=== PATIENT | female | born 1965 | race Caucasian/White ===

== ENCOUNTER 2019-09-10 11:16 | Emergency (ER) | payer OTHER ==
[2019-09-10] MEDS ORDERED: METHYLPREDNISOLONE INJ 125 MG/2 ML SDV IV ONE (11:40)
[2019-09-10] MEDS ORDERED: IPRATROPIUM/ALBUTEROL 0.5-2.5 MG/3 ML AMPUL NEB ONE (11:40)
--- NOTE | 2019-09-10 11:41 | ER Document Report ---
ED Medical Screen (RME) - General Chief Complaint: Breathing Difficulty Stated Complaint: DIFFICULTY BREATHING Time Seen by Provider: 09/10/19 11:39 Primary Care Provider: COREY KILPATRICK MD [Primary Care Provider] - Follow up as needed Notes: HPI: 54-year-old female who smokes presenting to the emergency department complaining of significant shortness of breath that began last night. Patient believes that she has had episodes possibly allergy issues with a mattress she purchased in June she feels short of breath every night. Has never gone to a PCP for evaluation of these issues. Denies swelling of the legs. Denies chest pain but states that it hurts and is difficult to feel like she is able to take a deep breath in. States possible asthma issue when she was a child. Patient does have longstanding smoking history I have greeted and performed a rapid initial assessment of this patient. A comprehensive ED assessment and evaluation of the patient, analysis of test results and completion of the medical decision making process will be conducted by additional ED providers PHYSICAL EXAMINATION: GENERAL: Well-appearing, well-nourished and in mild acute distress. HEAD: Atraumatic, normocephalic. EYES: sclera anicteric, conjunctiva are normal. ENT: Moist mucous membranes. NECK: Normal range of motion LUNGS: Slightly increased work of breathing, lung sounds appear clear to auscultation but slightly decreased in the bases HEART: 2+ radial pulses bilaterally, mildly tachycardic ABD: limited by positioning for exam in triage. EXTREMITIES: no pitting or edema. No cyanosis. NEUROLOGICAL: No focal neurological deficits. Moves all extremities spontaneously and on command. PSYCH: Normal mood, normal affect. SKIN: Warm, Dry, normal turgor, no rashes or lesions noted. TRAVEL OUTSIDE OF THE [place] IN LAST 30 DAYS: No - Related Data Allergies/Adverse Reactions: No Known Allergies Allergy (Unverified 09/10/19 11:39) Home Medications: no home medications Past Medical History - Social History Chew tobacco use (# tins/day): No Frequency of alcohol use: None Drug Abuse: None Physical Exam - Vital signs Vitals: Temp Pulse Resp BP Pulse Ox 97.5 F 131 H 32 H 144/83 H 94 09/10/19 11:22 09/10/19 11:22 09/10/19 11:22 09/10/19 11:22 09/10/19 11:22 Course - Vital Signs Vital signs: Temp Pulse Resp BP Pulse Ox 97.5 F 131 H 32 H 144/83 H 94 09/10/19 11:22 09/10/19 11:22 09/10/19 11:22 09/10/19 11:22 09/10/19 11:22 Doctor's Discharge - Discharge Referrals: COREY KILPATRICK MD [Primary Care Provider] - Follow up as needed
--- NOTE | 2019-09-10 12:46 | RADIOLOGY REPORT (SQ) ---
EXAM DESCRIPTION: CHEST SINGLE VIEW COMPLETED DATE/TIME: 09/10/2019 12:31 pm REASON FOR STUDY: shortness of breath COMPARISON: None. EXAM PARAMETERS: NUMBER OF VIEWS: One view. TECHNIQUE: An AP view of the chest was obtained. RADIATION DOSE: NA LIMITATIONS: None. FINDINGS: LUNGS AND PLEURA: COPD without a superimposed consolidation, sizeable pleural effusion or pneumothorax. MEDIASTINUM AND HILAR STRUCTURES: No mediastinal or hilar contour abnormality. HEART AND VASCULAR STRUCTURES: The cardiac silhouette and pulmonary vasculature are within normal meneses its. BONES: No acute findings. HARDWARE: None in the chest. OTHER: No other finding. IMPRESSION: COPD without a superimposed acute cardiopulmonary process. TECHNICAL DOCUMENTATION: JOB ID: [id number] 2010 [employer]- All Rights Reserved Reading location - IP/workstation name: [email or web address]
[2019-09-10 13:11] LABS: ABSOLUTE BASOPHILS # (AUTO) 0.1 10^3/uL (0.0-0.2); ABSOLUTE EOSINOPHILS # (AUTO) 0.2 10^3/uL (0.0-0.6); ABSOLUTE LYMPHOCYTES (AUTO) 4.3 10^3/uL (0.5-4.7); ABSOLUTE MONOCYTES (AUTO) 1.3 10^3/uL (0.1-1.4); ABSOLUTE NEUT (AUTO) 10.8 10^3/uL (1.7-8.2); BASOPHILS % (AUTO) 0.8 % (0-2); EOSINOPHILS % (AUTO) 1.4 % (0-6); HEMATOCRIT 45.8 % (36.0-47.0); HEMOGLOBIN 15.7 g/dL (12.0-15.5); LYMPHOCYTES % (AUTO) 25.7 % (13-45); MEAN CORPUSCULAR HEMOGLOBIN 32.2 pg (27.0-33.4); MEAN CORPUSCULAR HGB CONC 34.3 g/dL (32.0-36.0); MEAN CORPUSCULAR VOLUME 94 fl (80-97); MONOCYTES % (AUTO) 7.7 % (3-13); PLATELET COUNT 307 10^3/uL (150-450); RED BLOOD COUNT 4.86 10^6/uL (3.72-5.28); RED CELL DISTRIBUTION WIDTH 12.9 % (11.5-14.0); SEGMENTED NEUTROPHILS % (AUTO) 64.4 % (42-78); TOTAL CELLS COUNTED % (AUTO) 100 %; WHITE BLOOD COUNT 16.8 10^3/uL (4.0-10.5)
--- NOTE | 2019-09-10 13:31 | EKG REPORT ---
SEVERITY:- ABNORMAL ECG - SINUS TACHYCARDIA ATRIAL PREMATURE COMPLEX BIATRIAL ABNORMALITIES BORDERLINE T ABNORMALITIES, ANT-LAT LEADS : Confirmed by: Doc Mcgowan MD 10-Sep-2019 13:30:55
[2019-09-10 13:37] LABS: ALBUMIN 5.1 g/dL (3.5-5.0); ALKALINE PHOSPHATASE 49 U/L (38-126); ANION GAP 10 (5-19); ASPARTATE AMINO TRANSFERASE 35 U/L (14-36); BILIRUBIN,DIRECT 0.1 mg/dL (0.0-0.4); BILIRUBIN,TOTAL 0.5 mg/dL (0.2-1.3); BLOOD UREA NITROGEN 9 mg/dL (7-20); CALCIUM 10.2 mg/dL (8.4-10.2); CARBON DIOXIDE 22 mmol/L (22-30); CHLORIDE 109 mmol/L (98-107); GLUCOSE 111 mg/dL (75-110); POTASSIUM 4.6 mmol/L (3.6-5.0)
[2019-09-10] MEDS ORDERED: ASPIRIN 81 MG TABLET, CHEWABLE PO ONE (13:59)
[2019-09-10 14:00] LABS: TROPONIN I 0.047 ng/mL
[2019-09-10 14:37] LABS: APPEARANCE,URINE CLEAR; BILIRUBIN,URINE SMALL (NEGATIVE); COLOR,URINE YELLOW; GLUCOSE, URINE NEGATIVE (NEGATIVE); KETONES,URINE TRACE mg/dL (NEGATIVE); LEUKOCYTE ESTERASE,URINE NEGATIVE (NEGATIVE); NITRITE,URINE NEGATIVE (NEGATIVE); PROTEIN,URINE 100 mg/dL (NEGATIVE); URINE SPECIFIC GRAVITY 1.032; UROBILINOGEN,URINE NEGATIVE mg/dL (<2.0)
[2019-09-10] MEDS ORDERED: ALBUTEROL SULFATE 0.083% NEB 2.5 MG/3 ML AMPUL NEB ONE ×2 (14:42)
[2019-09-10] MEDS ORDERED: NORMAL SALINE 1000 ML 1,000 ML IV ONE (14:43)
[2019-09-10] MEDS: MAGNESIUM SULFATE/D5W 1 GM/100 ML RTUPB IV SCH ×2 (15:04→16:37)
--- NOTE | 2019-09-10 15:07 | ER Document Report ---
Entered by RADHA MORTON SCRIBE 09/10/19 1440 Acting as scribe for:PREETHI OLEA MD ED General - General Chief Complaint: Breathing Difficulty Stated Complaint: DIFFICULTY BREATHING Time Seen by Provider: 09/10/19 11:39 Primary Care Provider: COREY KILPATRICK MD [Primary Care Provider] - Follow up as needed Information source: Patient Notes: 54-year-old female presents to the emergency department complaining of shortness of breath that she has noticed is worse at night for a couple of months. Patient started smoking when she was 10 years old and was smoking about a pack a day until she was 31 years old. Patient stated that at 31 years old, she was smoking 3 packs per day until she started tapering when she was 39 years old. Patient has tapered to below a pack per day since she was 44 years old. Patient now reports smoking about a half a pack per day. Patient states that drinking coffee would help her shortness of breath but did not provide relief today. Patient denies sputum. TRAVEL OUTSIDE OF THE [place] IN LAST 30 DAYS: No - Related Data Allergies/Adverse Reactions: No Known Allergies Allergy (Unverified 09/10/19 11:39) Home Medications: no home medications Past Medical History - General Information source: Patient - Social History Smoking Status: Current Every Day Smoker Cigarette use (# per day): Yes - Half a pack per day Chew tobacco use (# tins/day): No Frequency of alcohol use: None Drug Abuse: None Lives with: Spouse/Significant other Family History: Other - Emphysema Patient has suicidal ideation: No Patient has homicidal ideation: No Pulmonary Medical History: Reports: Hx Asthma, Hx COPD Past Surgical History: Reports: Hx Section, Hx Oral Surgery - X3, Hx Tubal Ligation Review of Systems - Review of Systems Constitutional: No symptoms reported EENT: No symptoms reported Cardiovascular: denies: Chest pain Respiratory: See HPI, Short of breath. denies: Sputum Gastrointestinal: No symptoms reported Genitourinary: No symptoms reported Female Genitourinary: No symptoms reported Musculoskeletal: No symptoms reported Skin: No symptoms reported Hematologic/Lymphatic: No symptoms reported Neurological/Psychological: No symptoms reported -: Yes All other systems reviewed and negative Physical Exam - Vital signs Vitals: Temp Pulse Resp BP Pulse Ox 97.5 F 131 H 32 H 144/83 H 94 09/10/19 11:22 09/10/19 11:22 09/10/19 11:22 09/10/19 11:22 09/10/19 11:22 - Notes Notes: Physical Exam: General: Alert. Thin appearing. HEENT: Normocephalic. Atraumatic. PERRL. Extraocular movements intact. Oropharynx clear. Neck: Supple. Non-tender. Respiratory: No respiratory distress. Wheezing and Rhonchi bilaterally. When asked to cough, patient has a prolonged expository wheeze. Cardiovascular: Regular rate and rhythm. Abdominal: Normal Inspection. Non-tender. No distension. Normal Bowel Sounds. Back: No gross abnormalities. Extremities: Moves all four extremities. Upper extremities: Normal inspection. Normal ROM. Lower extremities: Normal inspection. No edema. Normal ROM. Neurological: Normal cognition. AAOx4. Normal speech. Psychological: Normal affect. Normal Mood. Skin: Warm. Dry. Normal color. Course - Vital Signs Vital signs: Temp Pulse Resp BP Pulse Ox 97.5 F 131 H 16 125/80 96 09/10/19 11:22 09/10/19 11:22 09/10/19 14:01 09/10/19 14:01 09/10/19 14:01 - Laboratory Result Diagrams: 09/10/19 13:00 09/10/19 13:00 Laboratory results interpreted by me: 09/10/19 09/10/19 09/10/19 12:15 13:00 13:00 WBC 16.8 H Hgb 15.7 H Absolute Neuts (auto) 10.8 H Chloride 109 H Glucose 111 H NT-Pro-B Natriuret Pep Albumin 5.1 H Urine Protein 100 H Urine Ketones TRACE H Urine Blood SMALL H Urine Bilirubin SMALL H 09/10/19 13:00 WBC Hgb Absolute Neuts (auto) Chloride Glucose NT-Pro-B Natriuret Pep 165 H Albumin Urine Protein Urine Ketones Urine Blood Urine Bilirubin - Diagnostic Test Radiology reviewed: Image reviewed, Reports reviewed - Chest x-ray shows COPD without acute findings. - EKG Interpretation by Me EKG shows normal: Sinus rhythm, [place], Intervals, QRS Complexes. abnormal: ST-T Waves - Borderline anterior lateral T wave abnormalities Rate: Tachycardia - 115 Rhythm: APC's P Waves: DANIELA, LAE When compared to previous EKG there are: Previous EKG unavailable Discharge - Discharge Clinical Impression: Acute exacerbation of chronic obstructive pulmonary disease (COPD), Tachycardia, Tachypnea Leukocytosis Qualifiers: Leukocytosis type: unspecified Qualified Code(s): D72.829 - Elevated white blood cell count, unspecified Condition: Stable Disposition: HOME, SELF-CARE Additional Instructions: Bronchitis with Bronchospasm (Wheezing): You have bronchitis with bronchospasm (wheezing). Sometimes people develop wheezing with a chest cold. This occurs either because of an underlying tendency toward asthma or because the virus itself irritates the bronchial tubes. This irritation causes cough, shortness of breath, and wheezing. Emergency treatment of bronchospasm may include adrenaline shots or bronchodilator aerosol. You may feel lightheaded and have a rapid pulse for an hour or two. Rest and get plenty of fluids. At home, we'll treat you with a bronchodilator inhaler. Corticosteroids may be required for some patients. Until you recover, avoid chemical fumes, dusts, pollens, and exercising in very cold or dry air. If you smoke, stop now! Most cases of bronchitis get better without antibiotics. We prescribe antibiotics when we believe bacteria are damaging your airways, or if there's high risk the bronchitis will worsen into pneumonia. Increase your fluid intake. A cool mist humidifier may make your lungs more comfortable. An expectorant (cough medicine that loosens phlegm) can help. Repeated episodes of bronchitis and bronchospasm may result in lung damage -- for example, chronic bronchitis, recurrent pneumonias, or emphysema. If you develop a fever, increased wheezing, chest pain, or severe shortness of breath, you should contact the doctor immediately. Your evaluation today shows that you have COPD(Chronic Obstructive Pulmonary Disease). You seem to have an acute exacerbation of your COPD. Start the prednisone as prescribed tomorrow--you were given today's dose here in the emergency room. Start the doxycycline tonight at bedtime. Use the inhaler 2 puffs every 2-4 hours for wheezing and shortness of breath. Drink plenty of fluids and get plenty of rest. Follow-up with your primary care provider in the next few days for reevaluation and referral to a pulmonary medicine doctor. RETURN TO THE EMERGENCY ROOM IF ANY NEW OR WORSENING SYMPTOMS. Prescriptions: Prednisone [Deltasone 10 mg Tablet] 10 mg PO ASDIR PRN #21 tablet PRN Reason: Doxycycline Hyclate 100 mg PO BID #20 tablet. Albuterol Sulfate [Proair Hfa Inhalation Aerosol 8.5 gm Mdi] 2 puff IH ASDIR PRN #1 mdi PRN Reason: Forms: Return to Work Referrals: COREY KILPATRICK MD [Primary Care Provider] - Follow up as needed I personally performed the services described in the documentation, reviewed and edited the documentation which was dictated to the scribe in my presence, and it accurately records my words and actions.
[2019-09-10] MEDS ORDERED: ALBUTEROL SULFATE HFA (90 MCG/PUFF) 8 GM MDI (1 MDI/ER DISP) IH ONE (17:58)
[2019-09-10] MEDS ORDERED: PREDNISONE 20 MG TABLET PO ONE (17:58)
[2019-09-10] MEDS ORDERED: DOXYCYCLINE HYCLATE 100 MG TABLET PO ONE (17:59)
[2019-09-10 18:29] VITALS: BP 104/59
== END 2019-09-10 18:26 | disposition home or self-care (01) ==
LOC: ER 11:16
DX: J44.1 Chronic obstructive pulmonary disease with (acute) exacerbation (principal); R00.0 Tachycardia, unspecified; R06.82 Tachypnea, not elsewhere classified; D72.829 Elevated white blood cell count, unspecified; F17.210 Nicotine dependence, cigarettes, uncomplicated; Z98.51 Tubal ligation status
CPT/HCPCS: 93005; 94640 ×2; 99285; 96375; 96365; 96366; 36415; 82550; 85025; 80053; 81001; 84484; 83880; 71045; 93010; J2930; J3475; J7512; J7030; J7620

== ENCOUNTER → 2019-10-10 | Outpatient (CLI) | payer OTHER ==
--- NOTE | 2019-10-10 17:03 | RADIOLOGY REPORT (SQ) ---
EXAM DESCRIPTION: CT LUNG CANCER SCREENING IMAGES COMPLETED DATE/TIME: 10/10/2019 9:33 am REASON FOR STUDY: HX OF SMOKING (Z87.891) J43.2 CENTRILOBULAR EMPHYSEMA Has the patient had a Chest CT scan within the past year? N Was the patient offered tobacco cessation counseling? Y Was the patient engaged in shared decision making for this test? Y Does the patient have signs or symptoms of Lung Cancer? N Is the patient a smoker? Y How many pack years? 44 How many years since quitting smoking? N Patients age: 54 COMPARISON: None available TECHNIQUE: Low Dose CT scan performed of the chest without intravenous contrast for purposes of scre ening for lung cancer. Images reviewed with lung, soft tissue and bone windows. Reconstructed coron al and sagittal MPR images reviewed. All images stored on PACS. All CT scanners at this facility use dose modulation, iterative reconstruction, and/or weight based d osing when appropriate to reduce radiation dose to as low as reasonably achievable (ALARA). [facility]: Dose Right [facility]: CareDose [facility]: Dose Right [facility]: Teradose 4D [facility]: [employer] RADIATION DOSE: CT Rad equipment meets quality standard of care and radiation dose reduction techniq ues were employed. CTDIvol: 1.9 mGy. DLP: 76 mGy-cm. mGy. . LIMITATIONS: No technical limitations. FINDINGS: LUNG NODULES: No discrete pulmonary nodules. Irregular biapical consolidation, likely re presenting scars. REMAINING LUNGS AND PLEURA: No pleural effusions or calcifications. No pneumothorax. There is i rregular biapical scarring, right greater than left. Centrilobular and panacinar emphysema throughou t both lungs. HILAR AND MEDIASTINAL STRUCTURES: No identified masses. No abnormal nodes. HEART AND VASCULAR STRUCTURES: No aortic aneurysm. No pericardial effusion. No cardiac devices. CORONARY ARTERY CALCIFICATIONS: Scattered coronary atherosclerosis. UPPER ABDOMEN: No acute findings. THYROID AND OTHER SOFT TISSUES: No masses. No adenopathy. BONES: No significant finding. OTHER: No other significant findings. IMPRESSION: 1. No discrete suspicious pulmonary nodules. Mild irregular biapical consolidation, li nereyda scarring. 2. Emphysema. Scattered coronary atherosclerosis. LUNGRADS: LUNGRADS: 2 BENIGN APPEARANCE OR BEHAVIOR. NODULES WITH A VERY LOW LIKELIHOOD OF BECOMIN G A CLINICALLY ACTIVE CANCER DUE TO SIZE OR LACK OF GROWTH. MODIFIER: NONE. RECOMMENDATION: Continue annual screening with LDCT in 12 months. COMMENT: CRITERIA: Solid nodule(s): < 6 mm; new < 4 mm. Part solid nodule(s): < 6 mm total diameter on baseline screening. Non solid nodule(s) (GGN): < 20 mm OR ? 20 and unchanged or slowly growing. Category 3 or 4 nodules unchanged for ? 3 months. TECHNICAL DOCUMENTATION: JOB ID: [id number] Quality ID # [id number]: Final reports with documentation of one or more dose reduction techniques (e.g., Au tomated exposure control, adjustment of the mA and/or kV according to patient size, use of iterative reconstruction technique) 2010 [facility] Reading location - IP/workstation name: [email or web address]
== END ==
LOC: RAD 09:03
PROVIDERS: ATTEND Internal Medicine Pulmonary Disease
DX: Z12.2 Encounter for screening for malignant neoplasm of respiratory organs (principal); Z87.891 Personal history of nicotine dependence; J43.2 Centrilobular emphysema; I25.10 Atherosclerotic heart disease of native coronary artery without angina pectoris
CPT/HCPCS: G0297

== ENCOUNTER 2019-10-15 02:02 | Inpatient (IN) | payer OTHER ==
[2019-10-15] MEDS ORDERED: MIDAZOLAM HCL 50 MG/100 ML RTUINJ IV PRN (02:10)
--- NOTE | 2019-10-15 02:20 | ER Document Report ---
ED General - General Chief Complaint: Shortness Of Breath Stated Complaint: SHORTNESS OF BREATH Time Seen by Provider: 10/15/19 02:04 Notes: 54-year-old female brought to the emergency department via EMS. EMS was called because the patient developed shortness of breath approximately 1 hour prior to arrival. Patient does have a history of COPD, has an albuterol inhaler as well as a steroid inhaler that she has been using. When EMS arrived patient was laying on the floor and had an oxygen saturation of approximately 66% with diffuse expiratory wheezing. EMS gave albuterol nebulizer, 2 g of magnesium and 125 mg of Solu-Medrol, after the nebulizer the patient was 100% on room air however soon as she was transferred to the stretcher she became quite obtunded and quickly became unresponsive. They intubated her using a videoscope, 75 mg of rocuronium and 75 mg of ketamine. They put in a 7-0 ET tube at 22 at the lip without any complications. Patient was then transported to the emergency department. Nothing else is known about her past medical history aside from COPD. Patient is a full code. TRAVEL OUTSIDE OF THE [place] IN LAST 30 DAYS: No - Related Data Allergies/Adverse Reactions: No Known Allergies Allergy (Unverified 09/10/19 11:39) Past Medical History - General Information source: Emergency Med Personnel Cannot obtain history due to: Intubated - Social History Smoking Status: Smoker,Current Status Unk Lives with: Spouse/Significant other Family History: COPD Pulmonary Medical History: Reports: Hx Asthma, Hx COPD Past Surgical History: Reports: Hx Section, Hx Oral Surgery - X3, Hx Tubal Ligation Review of Systems - Review of Systems -: Yes ROS unobtainable due to patient's medical condition Physical Exam - Vital signs Vitals: Resp Pulse Ox 23 H 100 10/15/19 02:06 10/15/19 02:06 - Notes Notes: GENERAL: Intubated, sedated. HEAD: Normocephalic, atraumatic EYES: Pupils equal, round and reactive to light. LUNGS: Intubated, being bagged, no spontaneous respirations, expiratory wheezing. HEART: Tachycardic rate and rhythm, no murmurs, gallops, rubs. ABDOMEN: Soft, nondistended, bowel sounds present in all 4 quadrants. EXTREMITIES: Patient is sedated, recently had paralytic, no spontaneous movement, no edema, radial and dorsalis pedis pulses 2/4 bilaterally. No cyanosis. NEUROLOGICAL: Intubated, sedated, GCS of 3T. SKIN: Warm, Dry, normal turgor. Course - Re-evaluation Re-evalutation: 10/15/19 03:14 Patient arrived intubated by EMS, all possible precautions were taken on this patient due to possible exposure to novel coronavirus while going to doctor's appointments recently. Patient does appear more consistent with COPD exacerbation. Already received steroids and breathing treatments and magnesium in the field. Additional albuterol was given here. Patient was left on the ventilator, Versed was started at 4mg/h, patient became hypotensive with this so she was taken down to 2 mg/h and is doing well. Patient was started on the ventilator at a rate of 12, she is now breathing over the vent between 14 and 16 times per minute. She is on an FiO2 of 100% with a tidal volume of 405 of PEEP. Patient is oxygenating quite well. Respiratory will continue to titrate down the oxygen. Tachycardia is resolving with fluids. Chest x-ray shows emphysema but no evidence of pneumonia or pneumothorax, ET tube is in good position. CBC shows leukocytosis at 14.7, coags normal, arterial blood gas shows combination of respiratory and metabolic acidosis with pH of 7.18, PCO2 of 63.8, PO2 is 277 again on FiO2 of 40%. Chemistries are pending at this time. Urinalysis unremarkable. Had initial conversation with Lj Qureshi the ICU PA regarding this patient, he agrees to accept the patient to the ICU for admission. I will continue to follow-up on the patient's laboratory studies and order repeat ABG for 330. Given the fact that the patient is a COPD or who has had such a severe exacerbation that she had to be intubated we will start Rocephin and azithromycin. 10/15/19 04:04 CMP shows elevated glucose, elevated troponin at 0.363, otherwise unremarkable. Lactic acid is actually normal at 1.4. Repeat ABG is pending. Patient is actually becoming increasingly active and gagging on the tube despite the Versed having been increased to 10 mg/h. We will add fentanyl to see how well this helps. Patient's blood pressure was tolerating the Versed quite well after fluids. - Vital Signs Vital signs: Temp Pulse Resp BP Pulse Ox 96.6 F L 16 135/97 H 100 10/15/19 03:01 10/15/19 03:01 10/15/19 03:00 10/15/19 03:01 - Laboratory Result Diagrams: 10/15/19 02:20 10/15/19 02:20 Laboratory results interpreted by me: 10/15/19 10/15/19 10/15/19 02:20 02:20 02:20 WBC 14.7 H Eos % (Auto) 6.2 H Absolute Neuts (auto) 9.0 H Absolute Eos (auto) 0.9 H Carbonic Acid 1.92 H ABG pH 7.18 L* ABG pCO2 63.8 H ABG pO2 277.2 H ABG Total CO2 25.5 H ABG O2 Saturation 99.5 H Chloride 108 H Glucose 272 H POC Glucose AST 38 H Urine Protein Urine Glucose (UA) Urine Blood 10/15/19 10/15/19 02:20 02:57 WBC Eos % (Auto) Absolute Neuts (auto) Absolute Eos (auto) Carbonic Acid ABG pH ABG pCO2 ABG pO2 ABG Total CO2 ABG O2 Saturation Chloride Glucose POC Glucose 246 H AST Urine Protein 100 H Urine Glucose (UA) 150 H Urine Blood SMALL H - EKG Interpretation by Me Additional EKG results interpreted by me: 10/15/19 02:42 EKG shows sinus tachycardia at a rate of 121, normal axis, normal intervals, somewhat irregular baseline but there appears to be some mild ST segment depress ions in leads II and III, no ST segment elevations, rapid R wave progression, T wave inversions in aVL and V2 which were also seen on prior EKG on 09/10/2019 per my interpretation. Critical Care Note - Critical Care Note Total time excluding time spent on procedures (mins): 40 Discharge - Discharge Clinical Impression: Acute respiratory failure with hypercapnia, Acute respiratory acidosis, Metabolic acidosis, Decompensated COPD with exacerbation (chronic obstructive pulmonary disease) Condition: Critical Disposition: ADMITTED INPATIENT Admitting Provider: Alisa (Molding Associate) Unit Admitted: ICU
[2019-10-15] MEDS ORDERED: ALBUTEROL SULFATE 0.083% NEB 2.5 MG/3 ML AMPUL NEB ONE ×3 (02:26→02:30)
[2019-10-15] MEDS ORDERED: RINGERS SOLUTION,LACTATED 1,000 ML IV ONE (02:40)
[2019-10-15 02:47] LABS: ABSOLUTE BASOPHILS # (AUTO) 0.1 10^3/uL (0.0-0.2); ABSOLUTE EOSINOPHILS # (AUTO) 0.9 10^3/uL (0.0-0.6); ABSOLUTE LYMPHOCYTES (AUTO) 4.1 10^3/uL (0.5-4.7); ABSOLUTE MONOCYTES (AUTO) 0.5 10^3/uL (0.1-1.4); BASOPHILS % (AUTO) 0.9 % (0-2); EOSINOPHILS % (AUTO) 6.2 % (0-6); HEMATOCRIT 41.3 % (36.0-47.0); HEMOGLOBIN 14.1 g/dL (12.0-15.5); LYMPHOCYTES % (AUTO) 27.9 % (13-45); MEAN CORPUSCULAR HEMOGLOBIN 32.8 pg (27.0-33.4); MEAN CORPUSCULAR HGB CONC 34.3 g/dL (32.0-36.0); MEAN CORPUSCULAR VOLUME 96 fl (80-97); MONOCYTES % (AUTO) 3.7 % (3-13); PLATELET COUNT 310 10^3/uL (150-450); RED BLOOD COUNT 4.31 10^6/uL (3.72-5.28); RED CELL DISTRIBUTION WIDTH 13.1 % (11.5-14.0); SEGMENTED NEUTROPHILS % (AUTO) 61.3 % (42-78); TOTAL CELLS COUNTED % (AUTO) 100 %; WHITE BLOOD COUNT 14.7 10^3/uL (4.0-10.5)
[2019-10-15 02:50] LABS: ARTERIAL BLOOD BASE EXCESS -5.9 mmol/L; ARTERIAL BLOOD H2CO3 1.92 mmol/L (1.05-1.35); ARTERIAL BLOOD HCO3 23.5 mmol/L (20-24); ARTERIAL BLOOD O2 SATURATION 99.5 % (94-98); ARTERIAL BLOOD PCO2 63.8 mmHg (35-45); ARTERIAL BLOOD PO2 277.2 mmHg (80-100); ARTERIAL BLOOD TOTAL CO2 25.5 mmol/L (21-25)
[2019-10-15 02:52] LABS: APPEARANCE,URINE CLEAR; BILIRUBIN,URINE NEGATIVE (NEGATIVE); COLOR,URINE YELLOW; GLUCOSE, URINE 150 mg/dL (NEGATIVE); KETONES,URINE NEGATIVE (NEGATIVE); PROTEIN,URINE 100 mg/dL (NEGATIVE); URINE SPECIFIC GRAVITY 1.014; UROBILINOGEN,URINE NEGATIVE mg/dL (<2.0)
[2019-10-15 02:53] LABS: ARTERIAL BLOOD FIO2 40%
[2019-10-15 02:54] LABS: ARTERIAL BLOOD PH 7.18 (7.35-7.45); INTERNATIONAL RATION (INR) 0.95; PROTHROMBIN TIME 12.7 SEC (11.4-15.4)
[2019-10-15 03:06] LABS: ALKALINE PHOSPHATASE 53 U/L (38-126); ANION GAP 8 (5-19); ASPARTATE AMINO TRANSFERASE 38 U/L (14-36); BILIRUBIN,TOTAL 0.4 mg/dL (0.2-1.3); BLOOD UREA NITROGEN 12 mg/dL (7-20); CALCIUM 8.6 mg/dL (8.4-10.2); CARBON DIOXIDE 22 mmol/L (22-30); CHLORIDE 108 mmol/L (98-107); GLUCOSE 272 mg/dL (75-110); POTASSIUM 4.1 mmol/L (3.6-5.0); TOTAL PROTEIN 6.8 g/dL (6.3-8.2)
[2019-10-15] MEDS ORDERED: AZITHROMYCIN INJ 500 MG VIAL IV ONE (03:10)
[2019-10-15] MEDS ORDERED: CEFTRIAXONE 1 GM/D5W RTU 1 GM/50 ML RTUPB IV ONE (03:10)
[2019-10-15] MEDS ORDERED: FENTANYL CITRATE INJ/PF 100 MCG/2 ML AMPUL IV ONE ×3 (03:39→23:00)
--- NOTE | 2019-10-15 03:48 | RADIOLOGY REPORT (SQ) ---
EXAM DESCRIPTION: XR CHEST 1 VIEW COMPLETED DATE/TME: 10/15/2019 02:28 CLINICAL HISTORY: 54 years Female, tube placement and resp failure COMPARISON: 09/10/19 NUMBER OF VIEWS/TECHNIQUE: 1/AP FINDINGS: Increased lung volume, small blunting-effusion of the left costophrenic angle, normal cardiac silhouette, and intact bony thorax.Adequate appearing endotracheal tube. Adequate appearing enteric tube. IMPRESSION: Interval intubation. Else stable.
[2019-10-15 04:03] LABS: ARTERIAL BLOOD H2CO3 1.51 mmol/L (1.05-1.35); ARTERIAL BLOOD HCO3 19.9 mmol/L (20-24); ARTERIAL BLOOD O2 SATURATION 98.9 % (94-98); ARTERIAL BLOOD PCO2 50.3 mmHg (35-45); ARTERIAL BLOOD PH 7.22 (7.35-7.45); ARTERIAL BLOOD PO2 177.6 mmHg (80-100); ARTERIAL BLOOD TOTAL CO2 21.5 mmol/L (21-25)
[2019-10-15 04:04] LABS: ARTERIAL BLOOD FIO2 30%
[2019-10-15 04:17] LABS: A TYPE INFLUENZA AG NEGATIVE (NEGATIVE); B INFLUENZA AG NEGATIVE (NEGATIVE)
[2019-10-15] MEDS ORDERED: DEXTROSE 50%-WATER 25 GM/50 ML DISP.SYRIN IV PRN ×2 (05:37)
[2019-10-15] MEDS ORDERED: DEXTROSE 40% GEL 15 GM TUBE PO PRN ×2 (05:37)
[2019-10-15] MEDS ORDERED: GLUCAGON,HUMAN RECOMB 1 MG INJ SUBCUT PRN (05:37)
[2019-10-15 07:18] LABS: TROPONIN I 1.54 ng/mL
[2019-10-15] MEDS ORDERED: DEXMEDETOMIDINE IN NS 400 MCG/100 ML RTUPB IV PRN (09:59)
--- NOTE | 2019-10-15 10:08 | EKG REPORT ---
SEVERITY:- ABNORMAL ECG - SINUS TACHYCARDIA ALETHEA, CONSIDER BIATRIAL ABNORMALITIES BORDERLINE T ABNORMALITIES, ANT-LAT LEADS : Confirmed by: Emily Romero MD 15-Oct-2019 10:07:51
[2019-10-15 10:12] LABS: ABSOLUTE LYMPHOCYTES (AUTO) 0.9 10^3/uL (0.5-4.7); ABSOLUTE MONOCYTES (AUTO) 0.2 10^3/uL (0.1-1.4); ABSOLUTE NEUT (AUTO) 7.8 10^3/uL (1.7-8.2); BASOPHILS % (AUTO) 0.2 % (0-2); EOSINOPHILS % (AUTO) 0.1 % (0-6); HEMATOCRIT 39.2 % (36.0-47.0); HEMOGLOBIN 13.6 g/dL (12.0-15.5); LYMPHOCYTES % (AUTO) 9.8 % (13-45); MEAN CORPUSCULAR HEMOGLOBIN 33.1 pg (27.0-33.4); MEAN CORPUSCULAR HGB CONC 34.8 g/dL (32.0-36.0); MEAN CORPUSCULAR VOLUME 95 fl (80-97); MONOCYTES % (AUTO) 2.2 % (3-13); PLATELET COUNT 275 10^3/uL (150-450); RED BLOOD COUNT 4.11 10^6/uL (3.72-5.28); RED CELL DISTRIBUTION WIDTH 12.8 % (11.5-14.0); SEGMENTED NEUTROPHILS % (AUTO) 87.7 % (42-78); TOTAL CELLS COUNTED % (AUTO) 100 %; WHITE BLOOD COUNT 8.9 10^3/uL (4.0-10.5)
[2019-10-15 10:29] LABS: ANION GAP 5 (5-19); BLOOD UREA NITROGEN 10 mg/dL (7-20); CALCIUM 8.8 mg/dL (8.4-10.2); CARBON DIOXIDE 25 mmol/L (22-30); CHLORIDE 106 mmol/L (98-107); GLUCOSE 161 mg/dL (75-110); POTASSIUM 4.6 mmol/L (3.6-5.0)
[2019-10-15] MEDS: METHYLPREDNISOLONE INJ 40 MG/1 ML SDV IV SCH ×2 (10:30→23:24)
[2019-10-15] MEDS: FAMOTIDINE INJ/PF 20 MG/2 ML SDV IV SCH ×2 (10:30→23:24)
[2019-10-15] MEDS: HEPARIN SOD (PORCINE) 5,000 UNIT/ML 1 ML VIAL SUBCUT SCH ×2 (10:31→15:55)
[2019-10-15] MEDS: RINGERS SOLUTION,LACTATED 1,000 ML IV PRN ×2 (10:31→20:31)
[2019-10-15] MEDS ORDERED: FENTANYL CITRATE INJ/PF 100 MCG/2 ML AMPUL ONE ×2 (11:14→20:32)
[2019-10-15] MEDS ORDERED: MIDAZOLAM 2 MG/2 ML INJ IV ONE (12:46)
[2019-10-15] MEDS ORDERED: TRAZODONE HCL 50 MG TABLET PO PRN (12:48)
[2019-10-15] MEDS: DEXTROSE 5%-WATER 250 ML with NOREPINEPHRINE BITARTRATE 4 MG IV PRN ×2 (14:00)
[2019-10-15] MEDS: NOREPINEPHRINE BITARTRATE INJ/PF 4 MG/4 ML SDV IV ONE ×2 (14:00→14:08)
[2019-10-15] MEDS ORDERED: ALBUMIN HUMAN 5% INJ 25 GM/500 ML BOTTLE IV ONE (14:30)
[2019-10-15] MEDS: ALBUTEROL SULFATE HFA (90 MCG/PUFF) 8 GM MDI IH SCH ×3 (15:39→21:30)
[2019-10-15] MEDS: FLUOXETINE HCL 20 MG CAPSULE PO SCH (15:39)
[2019-10-15] MEDS: GABAPENTIN 100 MG CAPSULE PO SCH ×2 (15:39→21:29)
[2019-10-15] MEDS: PROPOFOL 1,000 MG/100 ML INFUS..BTL IV PRN (16:09)
[2019-10-15] MEDS ORDERED: NORMAL SALINE INJ/PF 0.9% 10 ML SDV IV PRN (16:27)
[2019-10-15 17:01] LABS: ARTERIAL BLOOD BASE EXCESS -4.8 mmol/L; ARTERIAL BLOOD H2CO3 1.29 mmol/L (1.05-1.35); ARTERIAL BLOOD HCO3 21.3 mmol/L (20-24); ARTERIAL BLOOD PH 7.31 (7.35-7.45); ARTERIAL BLOOD PO2 168.8 mmHg (80-100); ARTERIAL BLOOD TOTAL CO2 22.6 mmol/L (21-25)
[2019-10-15 17:19] LABS: ARTERIAL BLOOD FIO2 40
--- NOTE | 2019-10-15 18:16 | RADIOLOGY REPORT (SQ) ---
EXAM DESCRIPTION: CHEST SINGLE VIEW IMAGES COMPLETED DATE/TIME: 10/15/2019 5:47 pm REASON FOR STUDY: line placement COMPARISON: 10/15/2019 EXAM PARAMETERS: NUMBER OF VIEWS: One view. TECHNIQUE: Single frontal radiographic view of the chest acquired. RADIATION DOSE: NA LIMITATIONS: None. FINDINGS: LUNGS AND PLEURA: No opacities, masses or pneumothorax. No pleural effusion. MEDIASTINUM AND HILAR STRUCTURES: No masses. Contour normal. HEART AND VASCULAR STRUCTURES: Heart normal in size. Normal vasculature. BONES: No acute findings. HARDWARE: Interval placement of right central venous catheter with the tip in the region of the supe rior vena cava. Endotracheal and nasogastric tubes are again identified. The tip of the endotrachea l tube is approximately 2.2 cm above the duane. OTHER: No other significant finding. IMPRESSION: 1. Placement of right central venous line with the tip in the region of the superior ve na cava. No evidence of pneumothorax. 2. Endotracheal and nasogastric tubes are again identified. The tip of the endotracheal tube is marleny roximately 2.2 cm above the duane. TECHNICAL DOCUMENTATION: JOB ID: [id number] 2010 [employer]- All Rights Reserved Reading location - IP/workstation name: [email or web address]
--- NOTE | 2019-10-15 18:53 | Operative Report ---
Bedside Procedure - History of Present Illness History of Present Illness: 54-year-old white female presented with hypoxia and was obtunded. She required intubation by EMS at home. Admitted to ICU on mechanical ventilation and under SARS, 2-CoViD19 rule out. Indication for Procedure: Hypotension with respiratory failure Date: 10/15/19 Provider: OVIDIO CARNEY - Central Line Right Internal jugular Time completed: 18:50 Consent obtained: Yes - by phone. González Central line pre-insertion: Sterile PPE donned, Chloraprep applied, Sterile drapes applied, Other - COVID PPE Central line lumen type: Triple Anesthetic type: 1% Lidocaine mL's of anesthesia: 4 Ultrasound guided: Yes CM at insertion site: 15 Line secured with sutures: Yes Central line post-insertion: Blood return from lumens, Biopatch applied, Sutured, Sterile dressing applied, Position confirmed w/ CXR, Other - Wire seen in IJ lumen Number of attempts: 3 - skin thick. Complications: No Notes: 10/15/19 18:52 EBL: 5-10 ml No pneumothorax Tip in SVC/RA junction
--- NOTE | 2019-10-15 18:58 | Operative Report ---
Bedside Procedure - History of Present Illness History of Present Illness: 54-year-old white female presented with hypoxia and was obtunded. She required intubation by EMS at home. Admitted to ICU on mechanical ventilation and under SARS, 2-CoViD19 rule out. Indication for Procedure: Hypotension Date: 10/15/19 Provider: OVIDIO CARNEY - Additional Procedures Arterial Line Time performed: 15:30 Notes: Arterial catheter insertion Estimated blood loss 5 to 10 cc Cleansed with chlorhexidine and used for regional barrier precautions, sterile gloves. PPE for SARS, 2-CoViD19 Right radial chosen site of access. Artery palpated and Seldinger needle placed without difficulty. Good arterial blood flow was noted. First attempt with wire was not successful a second attempt was successful. Wire was placed not difficulty and the needle was removed. Next a 20-gauge small catheter was inserted without difficulty. Good pulsatile blood flow was noted and was allowed to occur for 3-4 beats to allow for clearing of debris. Catheter was then sutured in place and affixed to transducer tubing. Reapplication of chlorhexidine occurred and a sterile dressing was applied. She tolerated the procedure well. No complications Procedure excludes critical care time
[2019-10-15] MEDS ORDERED: HEPARIN SOD (PORCINE) 1,000 UNIT/ML 10 ML VIAL IV ONE (19:36)
--- NOTE | 2019-10-15 19:46 | CRITICAL CARE ADMISSION REPORT ---
HPI Date:: 10/15/19 Time:: 08:00 Reason for ICU Reason:: Acute hypoxic respiratory failure HPI: 54-year-old white female presented with hypoxia and was obtunded. She required intubation by EMS at home. Admitted to ICU on mechanical ventilation and under SARS, 2-CoViD19 rule out. As patient is on mechanical ventilation I am unable to ascertain any review of systems. Did speak with her González who states that she has had a significant cough for the last 1 to 2 days. She had recently been diagnosed with emphysema and other than several doctors appointments has not had any known ill contacts. As far as the notices not been any fever. She is brought to the ICU where she was agitated and difficult to sedate. At one point she had a transient drop in blood pressure that responded to IV fluids. There was no fever. History obtained from:: and ED records - Diagnosis/Plan (1) Sepsis without septic shock Is this a current diagnosis for this admission?: Yes (2) Suspected COVID-19 virus infection Is this a current diagnosis for this admission?: Yes (3) Hypotension (arterial) Is this a current diagnosis for this admission?: Yes (4) Acute exacerbation of emphysema Is this a current diagnosis for this admission?: Yes (5) Elevated troponin I measurement Is this a current diagnosis for this admission?: Yes - . Plan Summary: Patient had transient hypotension that has been somewhat fluid responsive but requires low-dose Levophed. Have placed central venous access and arterial catheter to better monitor and manage this patient. Bedside critical care ultrasound showed an ejection fraction which was acceptable and no evidence for myocardial dysfunction. There was however significant pleural-based B-lines with pleural thickening. Chest x-ray, shows emphysema but has only minimal interstitial changes. The ultrasound is more sensitive for early pneumonitis associated with viral entities. The amount of B-lines is consistent with a SARS, 2-CoViD19 type presentation. We await the testing for this. Her situation has not been associated with any s ignificant hypoxia however given her emphysema this may occur in a number of days. We will send a respiratory pathogen profile including RSV and metapneumovirus. We will also check for non-novel coronavirus which is also been prevalent. Influenza screens have been notoriously falsely negative and we will send a respiratory pathogen profile to rule this out as well. She is on antibiotics for community-acquired bacterial pneumonia. Will follow CRP, ferritin and d- dimer. Notably patient's neutrophil to lymphocyte ratio is now 8.6 and on presentation 2.6. This may herald the early phases of SARS, 2-CoViD19. Meantime significant time and efforts were made to maintain adequate PPE while in the room. Will place on low-dose steroids given her presentation. She is a subset of patients with potential SARS, 2-CoViD19 that may improve with steroids. My biggest concern is that her troponin has slight elevation without any change in her EKG. Started her on heparin, aspirin and statin therapy. Will need a formal echo. If EKG does show significant changes will need to be transferred for coronary angiogram Updated the throughout the day. Past Medical History Pulmonary Medical History: Reports: Asthma, Chronic Obstructive Pulmonary Diseas e (COPD) Psychiatric Medical History: Reports: General Anxiety Disorder Past Surgical History Past Surgical History: Reports: Section, Tubal Ligation Social/Family History - Social History Lives with: Spouse/Significant other Smoking Status: Smoker,Current Status Unk - Medication/Allergies Home Medications: Albuterol Sulfate [Proair Hfa Inhalation Aerosol 8.5 gm Mdi] 2 puff IH Q4HP PRN 10/15/19 Doxepin HCl [Sinequan 10 Mg Capsule] 10 mg PO QHS 10/15/19 Fluoxetine HCl [Prozac] 40 mg PO DAILY 10/15/19 Gabapentin [Neurontin 100 mg Capsule] 100 mg PO TID 10/15/19 Trazodone HCl [Desyrel 50 mg Tablet] 50 mg PO HSP PRN 10/15/19 Umeclidinium Brm/Vilanterol Tr [Anoro Ellipta 62.5-25 Mcg INH] 1 each IH DAILY 10/15/19 Allergies/Adverse Reactions: No Known Allergies Allergy (Unverified 09/10/19 11:39) Review of Systems ROS unobtainable: Due to endotracheal tube, Due to mental status Constitutional: ABSENT: chills, fatigue, fever(s) Physical Exam Vital Signs: Temp Pulse Resp BP Pulse Ox 99.0 F 81 16 100/72 100 10/15/19 12:00 10/15/19 12:00 10/15/19 15:00 10/15/19 14:59 10/15/19 15:49 Intake & Output 10/14/19 10/15/19 10/16/19 06:59 06:59 06:59 Intake Total 1069 594 Output Total 155 Balance 1069 439 Weight 45 kg 46.3 kg Weight/Height Weight 46.3 kg Height 5 ft 1 in General appearance: PRESENT: no acute distress, thin Exam: Intubated, thin nontoxic but ill-appearing and older appearing 54-year-old female agitated at times but resolved with sedation. Head exam: PRESENT: atraumatic, normocephalic Eye exam: PRESENT: conjunctival injection, conjunctiva pink. ABSENT: nystagmus, PERRLA Ear exam: PRESENT: normal external ear exam Mouth exam: PRESENT: dry mucosa Neck exam: ABSENT: JVD, lymphadenopathy, tenderness, thyromegaly, tracheal deviation Respiratory exam: PRESENT: tachypnea, other - Lung sounds not auscultated secondary to the confines of PPE and poor auditory capability of disposable stethoscope. ABSENT: accessory muscle use, unlabored Cardiovascular exam: PRESENT: RRR, other - Heart sounds not auscultated secondary to the confines of PPE and poor auditory capability of disposable stethoscope. ABSENT: bradycardia, irregular rhythm, tachycardia Pulses: PRESENT: +1 pedal pulses bilateral Vascular exam: PRESENT: normal capillary refill. ABSENT: pallor GI/Abdominal exam: PRESENT: other - Gastric sounds not auscultated secondary to the confines of PPE and poor auditory capability of disposable stethoscope. ABSENT: ascites, distended, firm, guarding, mass, Luis's sign, rebound, rigid, soft, tenderness Rectal exam: PRESENT: deferred Gentrourinary exam: PRESENT: indwelling catheter Extremities exam: ABSENT: pedal edema Musculoskeletal exam: ABSENT: deformity, dislocation Neurological exam: PRESENT: altered, other - Sedated but responds appropriately follows commands. ABSENT: motor sensory deficit Psychiatric exam: PRESENT: agitated Skin exam: PRESENT: dry, intact, warm. ABSENT: cyanosis, mottled, rash Tubes/Lines: PRESENT: Endotracheal Tube, Other - Orogastric tube and Estrada urinary catheter Laboratory/Radiographs Laboratory Results: 10/15/19 09:52 10/15/19 09:52 10/15/19 10/15/19 10/15/19 02:20 02:20 02:20 WBC 14.7 H RBC 4.31 Hgb 14.1 Hct 41.3 MCV 96 MCH 32.8 MCHC 34.3 RDW 13.1 Plt Count 310 Seg Neutrophils % 61.3 Carbonic Acid HCO3/H2CO3 Ratio ABG pH ABG pCO2 ABG pO2 ABG HCO3 ABG O2 Saturation ABG Base Excess FiO2 Sodium 138.3 Potassium 4.1 Chloride 108 H Carbon Dioxide 22 Anion Gap 8 BUN 12 Creatinine 0.69 Est GFR ( Amer) > 60 Glucose 272 H Lactic Acid 1.4 Calcium 8.6 Total Bilirubin 0.4 AST 38 H Alkaline Phosphatase 53 Total Protein 6.8 Albumin 4.0 Triglycerides Urine Color Urine Appearance Urine pH Ur Specific [place] Urine Protein Urine Glucose (UA) Urine Ketones Urine Blood Urine RBC (Auto) 10/15/19 10/15/19 10/15/19 02:20 02:20 03:49 WBC RBC Hgb Hct MCV MCH MCHC RDW Plt Count Seg Neutrophils % Carbonic Acid 1.92 H 1.51 H HCO3/H2CO3 Ratio 12:1 13:1 ABG pH 7.18 L* 7.22 L ABG pCO2 63.8 H 50.3 H ABG pO2 277.2 H 177.6 H ABG HCO3 23.5 19.9 L ABG O2 Saturation 99.5 H 98.9 H ABG Base Excess -5.9 -8.0 FiO2 40% 30% Sodium Potassium Chloride Carbon Dioxide Anion Gap BUN Creatinine Est GFR ( Amer) Glucose Lactic Acid Calcium Total Bilirubin AST Alkaline Phosphatase Total Protein Albumin Triglycerides Urine Color YELLOW Urine Appearance CLEAR Urine pH 6.0 Ur Specific [place] 1.014 Urine Protein 100 H Urine Glucose (UA) 150 H Urine Ketones NEGATIVE Urine Blood SMALL H Urine RBC (Auto) 2 10/15/19 10/15/19 10/15/19 06:30 09:52 09:52 WBC 8.9 RBC 4.11 Hgb 13.6 Hct 39.2 MCV 95 MCH 33.1 MCHC 34.8 RDW 12.8 Plt Count 275 Seg Neutrophils % 87.7 H Carbonic Acid HCO3/H2CO3 Ratio ABG pH ABG pCO2 ABG pO2 ABG HCO3 ABG O2 Saturation ABG Base Excess FiO2 Sodium Potassium Chloride Carbon Dioxide Anion Gap BUN Creatinine Est GFR ( Amer) Glucose Lactic Acid 2.8 H 1.3 Calcium Total Bilirubin AST Alkaline Phosphatase Total Protein Albumin Triglycerides Urine Color Urine Appearance Urine pH Ur Specific [place] Urine Protein Urine Glucose (UA) Urine Ketones Urine Blood Urine RBC (Auto) 10/15/19 10/15/19 10/15/19 09:52 09:52 16:45 WBC RBC Hgb Hct MCV MCH MCHC RDW Plt Count Seg Neutrophils % Carbonic Acid 1.29 HCO3/H2CO3 Ratio 16:1 ABG pH 7.31 L ABG pCO2 43.0 ABG pO2 168.8 H ABG HCO3 21.3 ABG O2 Saturation 99.0 H ABG Base Excess -4.8 FiO2 40 Sodium 136.3 L Potassium 4.6 Chloride 106 Carbon Dioxide 25 Anion Gap 5 BUN 10 Creatinine 0.62 Est GFR ( Amer) > 60 Glucose 161 H Lactic Acid Calcium 8.8 Total Bilirubin AST Alkaline Phosphatase Total Protein Albumin Triglycerides 73 Urine Color Urine Appearance Urine pH Ur Specific [place] Urine Protein Urine Glucose (UA) Urine Ketones Urine Blood Urine RBC (Auto) 10/15/19 10/15/19 10/15/19 02:20 06:30 12:30 Troponin I 0.363 1.540 1.930 NT-Pro-B Natriuret Pep 193 H 10/15/19 18:17 Troponin I 2.170 NT-Pro-B Natriuret Pep Impressions: Chest X-Ray 10/15/19 02:28 IMPRESSION: Interval intubation. Else stable. All labs, radiographs, diagnostic studies and EKGs were personally reviewed: Yes In addition, reports of radiographic and diagnostic studies were read: Yes Critical Time Critical Time (minutes): 80 -: The care of a critically ill patient is dynamic. This note represents a static moment in the admission process. Orders and treatments may be given simultaneously and urgently, and time is not kiosk sales representative of the treatment pro cess. This patient requires Critical Care secondary to life threatening organ or limb dysfunction. Without Critical Care services, the patient is at risk for increased mortality and morbidity.
[2019-10-15] MEDS ORDERED: ETOMIDATE INJ/PF 20 MG/10 ML SDV IV ONE ×2 (20:32→23:00)
--- NOTE | 2019-10-15 21:11 | Operative Report ---
Bedside Procedure - History of Present Illness History of Present Illness: 54-year-old white female presented with hypoxia and was obtunded. She required intubation by EMS at home. Admitted to ICU on mechanical ventilation and under SARS, 2-CoViD19 rule out. As patient is on mechanical ventilation I am unable to ascertain any review of systems. Did speak with her González who states that she has had a significant cough for the last 1 to 2 days. She had recently been diagnosed with emphysema and other than several doctors appointments has not had any known ill contacts. As far as the notices not been any fever. She is brought to the ICU where she was agitated and difficult to sedate. At one point she had a transient drop in blood pressure that responded to IV fluids. There was no fever. Patient self extubated while under light sedation requiring urgent emergent intubation and a SARS, 2-CoViD19 PUI Procedure: Emergent intubation Proceduralist: Alisa CONN [facility] Preprocedure diagnosis: Hypoxia with viral pneumonitis concern for SARS, 2- CoViD19 Post procedure diagnosis: Same with mild airway swelling Complications: None Blood loss: None Was appropriate identified secondary to active critical care. She had been under sedation but self extubated. To be noted that this was a SARS, 2-CoViD19 patient under investigation. While staff placed her on oxygen and bag mask valve I asked for no insufflation and only oxygen. With facemask shield and gown held a face mask on the face with a H type filter and provided oxygenation without ventilation She remained at 100% throughout. This point gave rapid sequence intubation medications: Fentanyl etomidate rocuronium followed by flush. Guided apneic oxygenation Waited a full 1 minute for complete paralyzation before removing anything from her face. Intubated with glide scope under apneic conditions. Tube visualized through the cord as well as the balloon. Ballottement felt at the sternal notch Chest rising was noted bilaterally To auscultate given the confines of PPE No complications Indication for Procedure: Hypoxia Date: 10/15/19 Provider: OVIDIO CARNEY
[2019-10-15] MEDS ORDERED: NOREPINEPHRINE BITARTRATE INJ/PF 4 MG/4 ML SDV IV ONE (21:42)
--- NOTE | 2019-10-15 21:50 | EKG REPORT ---
SEVERITY:- BORDERLINE ECG - SINUS TACHYCARDIA LOW VOLTAGE IN FRONTAL LEADS BORDERLINE T WAVE ABNORMALITIES : Confirmed by: Emily Romero MD 15-Oct-2019 21:49:07
[2019-10-15 21:55] LABS: PROTHROMBIN TIME 13.2 SEC (11.4-15.4)
[2019-10-15 21:56] LABS: PARTIAL THROMBOPLASTIN TIME 32.5 SEC (23.5-35.8)
[2019-10-15] MEDS ORDERED: DOXEPIN HCL 10 MG CAPSULE PO SCH (22:00)
[2019-10-15 22:21] LABS: CREATINE KINASE 186 U/L (30-135)
[2019-10-15 22:26] LABS: CREATINE KINASE MB 15.3 ng/mL (<4.55)
[2019-10-15] MEDS: HEPARIN SODIUM,PORCINE/D5W 25,000 UNIT/250 ML RTUINJ IV PRN (22:33)
[2019-10-15 22:53] LABS: C-REACTIVE PROTEIN < 5.0 mg/L (<10.0)
[2019-10-15] MEDS ORDERED: ROCURONIUM BROMIDE INJ 50 MG/5 ML VIAL IV ONE (23:00)
[2019-10-15] MEDS ORDERED: GABAPENTIN 100 MG CAPSULE PO ONE (23:00)
[2019-10-15] MEDS: ASPIRIN 325 MG TABLET PO SCH (23:19)
--- NOTE | 2019-10-16 01:17 | RADIOLOGY REPORT (SQ) ---
EXAM DESCRIPTION: XR CHEST 1 VIEW COMPLETED DATE/TME: 10/15/2019 00:00 CLINICAL HISTORY: 54 years Female, Intubation COMPARISON: One day prior. NUMBER OF VIEWS/TECHNIQUE: 1/AP FINDINGS: Tip of an endotracheal tube is 2 cm from the duane; consider 2 cm retraction. Adequate appearing right jugular central line. Adequate appearing enteric tube partially obscured. Limitation: Leads/hardware/artifact. Clear lung carranza. Normal cardiac silhouette size. No pneumothorax. Stable bony thorax. IMPRESSION: No significant change.
[2019-10-16] MEDS: FENTANYL CITRATE/PF 600 MCG/60 ML BAG IV PRN ×6 (02:30→12:44)
[2019-10-16] MEDS: PROPOFOL 1,000 MG/100 ML INFUS..BTL IV PRN ×4 (03:00→22:02)
[2019-10-16 04:41] LABS: ABSOLUTE BASOPHILS # (AUTO) 0.1 10^3/uL (0.0-0.2); ABSOLUTE LYMPHOCYTES (AUTO) 1.6 10^3/uL (0.5-4.7); ABSOLUTE MONOCYTES (AUTO) 1.2 10^3/uL (0.1-1.4); ABSOLUTE NEUT (AUTO) 13.3 10^3/uL (1.7-8.2); BASOPHILS % (AUTO) 0.3 % (0-2); LYMPHOCYTES % (AUTO) 9.7 % (13-45); MEAN CORPUSCULAR HEMOGLOBIN 32.6 pg (27.0-33.4); MEAN CORPUSCULAR HGB CONC 34.2 g/dL (32.0-36.0); MEAN CORPUSCULAR VOLUME 95 fl (80-97); MONOCYTES % (AUTO) 7.2 % (3-13); PLATELET COUNT 225 10^3/uL (150-450); RED BLOOD COUNT 3.67 10^6/uL (3.72-5.28); RED CELL DISTRIBUTION WIDTH 12.9 % (11.5-14.0); SEGMENTED NEUTROPHILS % (AUTO) 82.8 % (42-78); TOTAL CELLS COUNTED % (AUTO) 100 %; WHITE BLOOD COUNT 16.1 10^3/uL (4.0-10.5)
[2019-10-16 04:50] LABS: APPEARANCE,URINE SLIGHTLY-CLOUDY; BILIRUBIN,URINE NEGATIVE (NEGATIVE); COLOR,URINE YELLOW; GLUCOSE, URINE NEGATIVE (NEGATIVE); KETONES,URINE TRACE mg/dL (NEGATIVE); LEUKOCYTE ESTERASE,URINE NEGATIVE (NEGATIVE); NITRITE,URINE NEGATIVE (NEGATIVE); PROTEIN,URINE 30 mg/dL (NEGATIVE); URINE SPECIFIC GRAVITY 1.015; UROBILINOGEN,URINE NEGATIVE mg/dL (<2.0)
[2019-10-16] MEDS: DEXTROSE 5%-WATER 250 ML with NOREPINEPHRINE BITARTRATE 4 MG IV PRN ×8 (04:50→22:26)
[2019-10-16 04:51] LABS: D-DIMER 2.57 ug/mL (0.00-0.50)
[2019-10-16 04:56] LABS: ALBUMIN 3.6 g/dL (3.5-5.0); ALKALINE PHOSPHATASE 46 U/L (38-126); ANION GAP 5 (5-19); ASPARTATE AMINO TRANSFERASE 47 U/L (14-36); BILIRUBIN,DIRECT 0.2 mg/dL (0.0-0.4); BILIRUBIN,TOTAL 0.3 mg/dL (0.2-1.3); BLOOD UREA NITROGEN 12 mg/dL (7-20); CALCIUM 8.6 mg/dL (8.4-10.2); CARBON DIOXIDE 27 mmol/L (22-30); CHLORIDE 106 mmol/L (98-107); GLUCOSE 153 mg/dL (75-110); PHOSPHORUS 3.5 mg/dL (2.5-4.5); POTASSIUM 4.6 mmol/L (3.6-5.0); TOTAL PROTEIN 5.8 g/dL (6.3-8.2)
[2019-10-16 05:02] LABS: PARTIAL THROMBOPLASTIN TIME 114.6 SEC (23.5-35.8)
[2019-10-16] MEDS ORDERED: CEFTRIAXONE 1 GM/D5W RTU 1 GM/50 ML RTUPB IV SCH (06:00)
[2019-10-16] MEDS: AZITHROMYCIN 500 MG in DEXTROSE 5%-WATER 250 ML IV SCH (06:01)
[2019-10-16] MEDS: RINGERS SOLUTION,LACTATED 1,000 ML IV PRN ×2 (06:10→15:23)
[2019-10-16] MEDS ORDERED: CEFTRIAXONE 2 GM/D5W RTU 2 GM/50 ML RTUPB IV SCH (08:00)
[2019-10-16] MEDS: FLUOXETINE HCL 20 MG CAPSULE PO SCH (10:14)
[2019-10-16] MEDS: METHYLPREDNISOLONE INJ 40 MG/1 ML SDV IV SCH ×2 (10:14→22:01)
[2019-10-16] MEDS: GABAPENTIN 100 MG CAPSULE PO SCH ×3 (10:14→19:58)
[2019-10-16] MEDS: FAMOTIDINE INJ/PF 20 MG/2 ML SDV IV SCH ×2 (10:15→22:01)
[2019-10-16] MEDS: ASPIRIN 325 MG TABLET PO SCH (10:15)
--- NOTE | 2019-10-16 10:33 | PDOC CONSULTATION ---
Consultation Consult Date: 10/16/19 Attending physician:: OVIDIO CARNEY Provider Consulted: ANTONY WADE Consult reason:: Elevated troponin. History of Present Illness Admission Date/PCP: 10/15/19 03:27 RYDER JEFFERS MD Patient complains of: The patient is intubated and sedated. History of Present Illness: MARY OLEARY is a 54 year old female with a prior history of COPD who was brought to the emergency department via EMS on 10/15/2019 after the patient developed shortness of breath 1 hour prior to arrival. The patient was found l aying on the floor at home with an oxygen saturation of approximately 66% with diffuse expiratory wheezing. EMS gave albuterol nebulizer, 2 g of magnesium and 125 mg of Solu-Medrol, after the nebulizer the patient was 100% on room air however [facility] she became quite obtunded and quickly became unresponsive. They intubated her using a videoscope, 75 mg of rocuronium and 75 mg of ketamine. They put in a 7-0 ET tube at 22 at the lip without any complications. She was then admitted to the intensive care unit where she remains intubated and sedated therefore no history can be obtained from the patient and there are no family members present. Since admission she had developed some ST elevation in her EKG in the lateral leads as well as a positive troponin which is actually trending up as well as an elevated proBNP. Physical exam on 10/16/2019: Physical exam was not performed this morning as the patient is in full isolation and awaiting results of COVID 19 testing. Past Medical History Pulmonary Medical History: Reports: Asthma, Chronic Obstructive Pulmonary Disease (COPD) Psychiatric Medical History: Reports: General Anxiety Disorder Past Surgical History Past Surgical History: Reports: Section, Tubal Ligation Social History Lives with: Spouse/Significant other Smoking Status: Smoker,Current Status Unk Family History Family History: COPD Parental Family History Reviewed: Yes Children Family History Reviewed: Yes Sibling(s) Family History Reviewed.: Yes Medication/Allergy Home Medications: Albuterol Sulfate [Proair Hfa Inhalation Aerosol 8.5 gm Mdi] 2 puff IH Q4HP PRN 10/15/19 Doxepin HCl [Sinequan 10 Mg Capsule] 10 mg PO QHS 10/15/19 Fluoxetine HCl [Prozac] 40 mg PO DAILY 10/15/19 Gabapentin [Neurontin 100 mg Capsule] 100 mg PO TID 10/15/19 Trazodone HCl [Desyrel 50 mg Tablet] 50 mg PO HSP PRN 10/15/19 Umeclidinium Brm/Vilanterol Tr [Anoro Ellipta 62.5-25 Mcg INH] 1 each IH DAILY 10/15/19 Allergies/Adverse Reactions: No Known Allergies Allergy (Unverified 09/10/19 11:39) Physical Exam Vital Signs: Temp Pulse Resp BP Pulse Ox 99.0 F 97 15 97/69 L 100 10/15/19 12:00 10/15/19 20:00 10/16/19 06:13 10/16/19 06:13 10/16/19 08:24 Intake & Output 10/15/19 10/16/19 10/17/19 06:59 06:59 06:59 Intake Total 1069 2947 553 Output Total 970 200 Balance 1069 1977 353 Weight 45 kg 47.5 kg Results Laboratory Results: 10/16/19 04:29 10/16/19 04:29 10/15/19 10/15/19 10/15/19 09:52 09:52 09:52 WBC 8.9 RBC 4.11 Hgb 13.6 Hct 39.2 MCV 95 MCH 33.1 MCHC 34.8 RDW 12.8 Plt Count 275 Seg Neutrophils % 87.7 H Carbonic Acid HCO3/H2CO3 Ratio ABG pH ABG pCO2 ABG pO2 ABG HCO3 ABG O2 Saturation ABG Base Excess FiO2 Sodium 136.3 L Potassium 4.6 Chloride 106 Carbon Dioxide 25 Anion Gap 5 BUN 10 Creatinine 0.62 Est GFR ( Amer) > 60 Glucose 161 H Lactic Acid 1.3 Calcium 8.8 Phosphorus Magnesium Ferritin Total Bilirubin AST Alkaline Phosphatase C-Reactive Protein Total Protein Albumin Triglycerides Urine Color Urine Appearance Urine pH Ur Specific [place] Urine Protein Urine Glucose (UA) Urine Ketones Urine Blood Urine Nitrite Ur Leukocyte Esterase Urine WBC (Auto) Urine RBC (Auto) 10/15/19 10/15/19 10/15/19 09:52 16:45 21:15 WBC RBC Hgb Hct MCV MCH MCHC RDW Plt Count Seg Neutrophils % Carbonic Acid 1.29 HCO3/H2CO3 Ratio 16:1 ABG pH 7.31 L ABG pCO2 43.0 ABG pO2 168.8 H ABG HCO3 21.3 ABG O2 Saturation 99.0 H ABG Base Excess -4.8 FiO2 40 Sodium Potassium Chloride Carbon Dioxide Anion Gap BUN Creatinine Est GFR ( Amer) Glucose Lactic Acid Calcium Phosphorus Magnesium Ferritin 89.50 Total Bilirubin AST Alkaline Phosphatase C-Reactive Protein < 5.0 Total Protein Albumin Triglycerides 73 Urine Color Urine Appearance Urine pH Ur Specific [place] Urine Protein Urine Glucose (UA) Urine Ketones Urine Blood Urine Nitrite Ur Leukocyte Esterase Urine WBC (Auto) Urine RBC (Auto) 10/16/19 10/16/19 10/16/19 04:29 04:29 04:29 WBC 16.1 H RBC 3.67 L Hgb 12.0 Hct 35.0 L MCV 95 MCH 32.6 MCHC 34.2 RDW 12.9 Plt Count 225 Seg Neutrophils % 82.8 H Carbonic Acid HCO3/H2CO3 Ratio ABG pH ABG pCO2 ABG pO2 ABG HCO3 ABG O2 Saturation ABG Base Excess FiO2 Sodium 138.0 Potassium 4.6 Chloride 106 Carbon Dioxide 27 Anion Gap 5 BUN 12 Creatinine 0.68 Est GFR ( Amer) > 60 Glucose 153 H Lactic Acid Calcium 8.6 Phosphorus 3.5 Magnesium 1.9 Ferritin 95.20 Total Bilirubin 0.3 AST 47 H Alkaline Phosphatase 46 C-Reactive Protein 13.0 H Total Protein 5.8 L Albumin 3.6 Triglycerides Urine Color YELLOW Urine Appearance SLIGHTLY-CLOUDY Urine pH 6.0 Ur Specific [place] 1.015 Urine Protein 30 H Urine Glucose (UA) NEGATIVE Urine Ketones TRACE H Urine Blood MODERATE H Urine Nitrite NEGATIVE Ur Leukocyte Esterase NEGATIVE Urine WBC (Auto) 5 Urine RBC (Auto) 21 10/15/19 10/15/19 10/15/19 02:20 06:30 12:30 Creatine Kinase CK-MB (CK-2) Troponin I 0.363 1.540 1.930 NT-Pro-B Natriuret Pep 193 H 10/15/19 10/15/19 10/15/19 18:17 21:15 21:15 Creatine Kinase 186 H CK-MB (CK-2) 15.30 H Troponin I 2.170 NT-Pro-B Natriuret Pep 4080 H 10/16/19 04:29 Creatine Kinase CK-MB (CK-2) Troponin I 2.140 NT-Pro-B Natriuret Pep Impressions: Chest X-Ray 10/15/19 02:28 IMPRESSION: Interval intubation. Else stable. 10/16/19 04:29 10/16/19 04:29 MCV 95 fl (80-97) 10/16/19 04:29 MCH 32.6 pg (27.0-33.4) 10/16/19 04:29 MCHC 34.2 g/dL (32.0-36.0) 10/16/19 04:29 RDW 12.9 % (11.5-14.0) 10/16/19 04:29 Seg Neutrophils % 82.8 % (42-78) H 10/16/19 04:29 Carbonic Acid 1.29 mmol/L (1.05-1.35) 10/15/19 16:45 HCO3/H2CO3 Ratio 16:1 10/15/19 16:45 ABG pH 7.31 (7.35-7.45) L 10/15/19 16:45 ABG pCO2 43.0 mmHg (35-45) 10/15/19 16:45 ABG pO2 168.8 mmHg (80-100) H 10/15/19 16:45 ABG HCO3 21.3 mmol/L (20-24) 10/15/19 16:45 ABG O2 Saturation 99.0 % (94-98) H 10/15/19 16:45 ABG Base Excess -4.8 mmol/L 10/15/19 16:45 FiO2 40 10/15/19 16:45 Chloride 106 mmol/L (98-107) 10/16/19 04:29 Carbon Dioxide 27 mmol/L (22-30) 10/16/19 04:29 Anion Gap 5 (5-19) 10/16/19 04:29 Est GFR ( Amer) > 60 (>60) 10/16/19 04:29 Glucose 153 mg/dL (75-110) H 10/16/19 04:29 Lactic Acid 1.3 mmol/L (0.7-2.1) 10/15/19 09:52 Calcium 8.6 mg/dL (8.4-10.2) 10/16/19 04:29 Phosphorus 3.5 mg/dL (2.5-4.5) 10/16/19 04:29 Magnesium 1.9 mg/dL (1.6-2.3) 10/16/19 04:29 Ferritin 95.20 ng/mL (11.1-264.0) 10/16/19 04:29 Total Bilirubin 0.3 mg/dL (0.2-1.3) 10/16/19 04:29 AST 47 U/L (14-36) H 10/16/19 04:29 Alkaline Phosphatase 46 U/L (38-126) 10/16/19 04:29 C-Reactive Protein 13.0 mg/L (<10.0) H 10/16/19 04:29 Total Protein 5.8 g/dL (6.3-8.2) L 10/16/19 04:29 Albumin 3.6 g/dL (3.5-5.0) 10/16/19 04:29 Triglycerides 73 mg/dL (<150) 10/15/19 09:52 Urine Color YELLOW 10/16/19 04:29 Urine Appearance SLIGHTLY-CLOUDY 10/16/19 04:29 Urine pH 6.0 (5.0-9.0) 10/16/19 04:29 Ur Specific [place] 1.015 10/16/19 04:29 Urine Protein 30 mg/dL (NEGATIVE) H 10/16/19 04:29 Urine Glucose (UA) NEGATIVE mg/dL (NEGATIVE) 10/16/19 04:29 Urine Ketones TRACE mg/dL (NEGATIVE) H 10/16/19 04:29 Urine Blood MODERATE (NEGATIVE) H 10/16/19 04:29 Urine Nitrite NEGATIVE (NEGATIVE) 10/16/19 04:29 Ur Leukocyte Esterase NEGATIVE (NEGATIVE) 10/16/19 04:29 Urine WBC (Auto) 5 /HPF 10/16/19 04:29 Urine RBC (Auto) 21 /HPF 10/16/19 04:29 10/15/19 10/15/19 10/15/19 02:20 06:30 12:30 Creatine Kinase CK-MB (CK-2) Troponin I 0.363 1.540 1.930 NT-Pro-B Natriuret Pep 193 H 10/15/19 10/15/19 10/15/19 18:17 21:15 21:15 Creatine Kinase 186 H CK-MB (CK-2) 15.30 H Troponin I 2.170 NT-Pro-B Natriuret Pep 4080 H 10/16/19 04:29 Creatine Kinase CK-MB (CK-2) Troponin I 2.140 NT-Pro-B Natriuret Pep Current Medication List Generic Name Dose Route Start Last Admin Trade Name Addie PRN Reason Stop Dose Admin Aspirin 325 mg 10/15/19 19:45 10/16/19 10:15 Aspirin 325 Mg Tablet PO 11/14/19 19:44 325 mg DAILY RITA Administration Dextrose 12.5 gm 10/15/19 05:37 Dextrose Inj 50% Syringe (25 Gm/50 Ml) IV 11/14/19 05:36 PRN PRN FOR BG 50-69 IN ALERT PATIENT Protocol Dextrose 25 gm 10/15/19 05:37 Dextrose Inj 50% Syringe (25 Gm/50 Ml) IV 11/14/19 05:36 PRN PRN See Label Comments Protocol Doxepin HCl 10 mg 10/15/19 22:00 10/15/19 23:19 Sinequan 10 Mg Capsule PO 11/14/19 21:59 10 mg QHS RITA Administration Famotidine 20 mg 10/15/19 10:00 10/16/19 10:15 Pepcid Inj/Pf 20 Mg/2 Ml Sdv IV 11/14/19 09:59 20 mg Q12 RITA Administration Fluoxetine HCl 40 mg 10/15/19 14:00 10/16/19 10:14 Prozac 20 Mg Capsule PO 11/14/19 13:59 40 mg DAILY RITA Administration Gabapentin 100 mg 10/15/19 14:00 10/16/19 10:14 Neurontin 100 Mg Capsule PO 11/14/19 13:59 100 mg TID RITA Administration Glucagon 1 mg 10/15/19 05:37 Glucagen Inj 1 Mg Vial SUBCUT 11/14/19 05:36 PRN PRN Evaluate for BG < 70 Protocol Glucose 15 gm 10/15/19 05:37 Glutose 40% Gel 15 Gm Tube PO 11/14/19 05:36 PRN PRN For BG 50-69 in Alert Patient Protocol Glucose 30 gm 10/15/19 05:37 Glutose 40% Gel 15 Gm Tube PO 11/14/19 05:36 PRN PRN FOR BG < 50 IN ALERT PATIENT Protocol Heparin Sodium (Porcine) 0 - 12,000 unit 10/15/19 22:36 Heparin Inj 1,000 Unit/Ml 10 Ml Vial IV 11/14/19 22:35 .BOLUS PER PROTOCOL PRN RESPOND TO aPTT VALUE Protocol Lactated Ringer's 1,000 mls @ 100 mls/hr 10/15/19 05:37 10/16/19 06:10 Lactated Ringers 1000 Ml Iv Soln IV 11/14/19 05:36 100 mls/hr CONTINUOUS PRN Administration THIS MED IS NOT "PRN" Ceftriaxone Sodium/Dextrose 2 gm in 50 mls @ 100 mls/hr 10/16/19 08:00 10/16/19 10:14 Rocephin Rtu 2 Gm/D5w 50 Ml Premix Bag IV 10/23/19 07:59 100 mls/hr QAM RITA 100 mls/hr Administration Azithromycin 500 mg/ Dextrose 250 mls @ 250 mls/hr 10/16/19 06:00 10/16/19 08:38 IV 10/23/19 05:59 Infused Q6AM RITA Infusion Propofol 1,000 mg in 100 mls @ 1.35 mls/hr 10/15/19 12:46 10/16/19 06:14 Diprivan Rtu 1000 Mg/100 Ml Inf.Bottle IV 11/14/19 12:45 40 mcg/kg/min CONTINUOUS PRN 10.8 mls/hr THIS MED IS NOT "PRN" Administration Protocol 5 MCG/KG/MIN Norepinephrine Bitartrate 4 mg 250 mls @ 0 mls/hr 10/15/19 13:25 10/16/19 10:15 / Dextrose IV 11/14/19 13:24 10 mcg/min CONTINUOUS PRN 37.5 mls/hr THIS MED IS NOT "PRN" Administration Protocol Titrate Heparin Sodium/Dextrose 25,000 unit in 250 mls @ 0 mls/hr 10/15/19 19:36 06:06 Heparin Rtu 25,000 Unit/250 Ml D5w Premix IV 11/14/19 19:35 10 unit/kg/hr CONTINUOUS PRN 4.63 mls/hr THIS MED IS NOT "PRN" Titration Protocol Titrate Fentanyl Citrate 600 mcg in 60 mls @ 0 mls/hr 10/15/19 23:32 10/16/19 10:15 Sublimaze [place] Judge/Pf 600 Mcg/60 Ml Rtu Vial IV 10/22/19 23:31 25 mls/hr ASDIR PRN Administration THIS MED IS NOT "PRN" Protocol Per Protocol Methylprednisolone Sodium Succinate 40 mg 10/15/19 10:00 10/16/19 10:14 Solu-Medrol Inj/Pf 40 Mg/1 Ml Sdv IV 11/14/19 09:59 40 mg Q12 RITA Administration Sodium Chloride 2.5 ml 10/15/19 06:00 10/16/19 06:01 Saline Flush 2.5 Ml Monoject Prefil Syrin IV 11/14/19 05:59 Not Given Q8 RITA Sodium Chloride 10 ml 10/15/19 16:27 Nacl 0.9% Inj/Pf 10 Ml Sdv IV 11/14/19 16:26 .AFTER EACH USE PRN AFTER EACH INTERMITTENT USE Trazodone HCl 50 mg 10/15/19 12:48 Desyrel 50 Mg Tablet PO 11/14/19 12:47 HSP PRN SLEEP OR INSOMNIA Discontinued Medications Generic Name Dose Route Start Last Admin Trade Name Freq PRN Reason Stop Dose Admin Albuterol Confirm 10/15/19 02:26 10/15/19 02:34 Ventolin 0.083% Neb 2.5 Mg/3 Ml Ampul Administered 10/15/19 02:27 Not Given Dose 2.5 mg NEB .STK-MED ONE Albuterol Confirm 10/15/19 02:27 10/15/19 02:34 Ventolin 0.083% Neb 2.5 Mg/3 Ml Ampul Administered 10/15/19 02:28 Not Given Dose 2.5 mg NEB .STK-MED ONE Albuterol 5 mg 10/15/19 02:30 10/15/19 02:45 Ventolin 0.083% Neb 2.5 Mg/3 Ml Ampul NEB 10/15/19 02:31 5 mg NOW ONE Administration Albuterol 8 puff 10/15/19 14:00 10/15/19 21:30 Ventolin Hfa 8 Gm Mdi IH 11/14/19 13:59 Not Given Q4 RITA Azithromycin 500 mg 10/15/19 03:10 10/15/19 03:56 Zithromax Inj 500 Mg Vial IV 10/15/19 03:11 500 mg IVBAG (ED) ONE Administration Etomidate Confirm 10/15/19 20:32 10/15/19 23:23 Amidate Inj/Pf 20 Mg/10 Ml Sdv Administered 10/15/19 20:33 Not Given Dose 20 mg IV .STK-MED ONE Etomidate 20 mg 10/15/19 23:00 10/15/19 21:00 Amidate Inj/Pf 20 Mg/10 Ml Sdv IV 10/15/19 23:01 20 mg NOW ONE Administration Fentanyl Citrate 100 mcg 10/15/19 03:39 10/15/19 03:55 Sublimaze Inj/Pf 100 Mcg/2 Ml Ampule IV 10/15/19 03:40 100 mcg NOW ONE Administration Fentanyl Citrate Confirm 10/15/19 11:14 10/15/19 13:55 Sublimaze Inj/Pf 100 Mcg/2 Ml Ampule Administered 10/15/19 11:15 Not Given Dose 100 mcg .ROUTE .STK-MED ONE Fentanyl Citrate 50 mcg 10/15/19 12:46 10/15/19 11:25 Sublimaze Inj/Pf 100 Mcg/2 Ml Ampule IV 10/15/19 12:47 50 mcg NOW ONE Administration Fentanyl Citrate Confirm 10/15/19 20:32 10/15/19 23:23 Sublimaze Inj/Pf 100 Mcg/2 Ml Ampule Administered 10/15/19 20:33 Not Given Dose 100 mcg .ROUTE .STK-MED ONE Fentanyl Citrate 100 mcg 10/15/19 23:00 10/15/19 21:00 Sublimaze Inj/Pf 100 Mcg/2 Ml Ampule IV 10/15/19 23:01 100 mcg NOW ONE Administration Gabapentin 100 mg 10/15/19 23:00 10/15/19 23:19 Neurontin 100 Mg Capsule PO 10/15/19 23:01 100 mg NOW ONE Administration Heparin Sodium (Porcine) 5,000 unit 10/15/19 06:00 10/15/19 15:55 Heparin Inj 5,000 Units/Ml 1 Ml Vial SUBCUT 11/14/19 05:59 5,000 unit Q8 RITA Administration Heparin Sodium (Porcine) 2,800 unit 10/15/19 19:36 10/15/19 22:03 Heparin Inj 1,000 Unit/Ml 10 Ml Vial 60 unit/kg (2800 unit) 10/15/19 19:37 2,800 units IV Administration NOW ONE Midazolam HCl 50 mg in 100 mls @ 0 mls/hr 10/15/19 02:10 10/15/19 10:00 Versed Rtu 50 Mg/100 Ml Premix Bag IV 10/22/19 02:09 0 mg/hr CONTINUOUS PRN 0 mls/hr THIS MED IS NOT "PRN" Titration Protocol Titrate Lactated Ringer's 1,000 mls @ 0 mls/hr 10/15/19 02:40 10/15/19 03:57 Lactated Ringers 1000 Ml Iv Soln IV 10/15/19 02:41 Infused BOLUS ONE Infusion Wide Open Ceftriaxone Sodium/Dextrose 1 gm in 50 mls @ 100 mls/hr 10/15/19 03:10 04/0 02/25 04:12 Rocephin Rtu 1 Gm/D5w 50 Ml Premix IV 10/15/19 03:39 Infused NOW ONE Infusion Ceftriaxone Sodium/Dextrose 1 gm in 50 mls @ 100 mls/hr 10/16/19 06:00 Rocephin Rtu 1 Gm/D5w 50 Ml Premix IV 10/23/19 05:59 Q6AM RITA Dexmedetomidine/Sodium Chloride 400 mcg in 100 mls @ 4.5 mls/hr 10/15/19 09:59 10/16/19 08:38 Precedex 400 Mcg/Ns 100 Ml Iv Premix IV 11/14/19 09:58 Infused CONTINUOUS PRN Titration THIS MED IS NOT "PRN" Protocol 0.4 MCG/KG/HR Albumin Human 500 mls @ 240 mls/hr 10/15/19 14:30 10/15/19 16:40 Albutein 5% Inj 25 Gm/500 Ml Premixed Bottle IV 10/15/19 16:34 Infused NOW ONE Infusion Midazolam HCl 4 mg 10/15/19 12:46 10/15/19 15:38 Versed 2 Mg/2 Ml Inj IV 10/15/19 12:47 Not Given NOW ONE Norepinephrine Bitartrate Confirm 10/15/19 13:25 10/15/19 14:08 Levophed Inj/Pf 4 Mg/4 Ml Sdv Administered 10/15/19 13:26 Not Given Dose 4 mg IV .STK-MED ONE Norepinephrine Bitartrate Confirm 10/15/19 21:42 10/15/19 23:20 Levophed Inj/Pf 4 Mg/4 Ml Sdv Administered 10/15/19 21:43 Not Given Dose 4 mg IV .STK-MED ONE Rocuronium [employer] 100 mg 10/15/19 23:00 10/15/19 21:00 Zemuron Inj 50 Mg/5 Ml Vial IV 10/15/19 23:01 100 mg NOW ONE Administration Assessment & Plan - Diagnosis (1) Elevated troponin I measurement Is this a current diagnosis for this admission?: Yes Plan: Very unfortunate 54-year-old female who is extremely sick in intensive care unit, intubated and sedated. I personally reviewed her most recent EKG and compared it to a prior EKG and there is no question that there is a slight elevation of the ST segment in the lateral leads. She does not appear to be in heart failure at this point and her elevated troponin as well as proBNP could even be secondary to her acute and very severe illness and not necessarily from an acute coronary syndrome although this issue is not completely ruled out although, from her known history, she does not appear to be at high risk for coronary artery disease. Fortunately enough, she has been medically treated for an acute coronary syndrome as she is not a candidate for any invasive cardiovascular testing. Even though an echocardiogram could shed some light in regards to the possibility of cardiac ischemia if left ventricular regional wall motion abnormalities are found, her current management would not change and we would be potentially exposing more personnel and equipment to a patient that is being tested for coronavirus therefore we will hold off on the study for now. Recommendations: -I agree with her current management as far as the cardiovascular system goes. -We will sign off the case for now but please feel free to contact me directly at [phone] with questions or concerns.
[2019-10-16] MEDS: HYDROMORPHONE HCL INJ/PF 2 MG/ML AMPULE IV SCH ×3 (15:24→22:01)
[2019-10-16] MEDS ORDERED: ALBUMIN HUMAN 500 ML IV ONE (15:30)
[2019-10-16] MEDS ORDERED: LORAZEPAM INJ 2 MG/1 ML VIAL ONE (15:39)
[2019-10-16] MEDS: ALBUTEROL SULFATE HFA (90 MCG/PUFF) 8 GM MDI IH SCH ×3 (15:44→22:25)
[2019-10-16] MEDS ORDERED: LORAZEPAM INJ 2 MG/1 ML VIAL IV ONE (16:15)
[2019-10-16] MEDS: HYDROMORPHONE HCL 30 MG/60 ML RTUINJ IV PRN (17:04)
[2019-10-16] MEDS ORDERED: VANCOMYCIN HCL 0 MG in DEXTROSE 5%-WATER 250 ML IV NR (18:30)
[2019-10-16] MEDS ORDERED: CEFEPIME 2 GM/D5W RTU 2 GM/50 ML RTUPB IV SCH (18:30)
[2019-10-16] MEDS: CEFEPIME HCL 2 GM in DEXTROSE 5%-WATER 50 ML IV SCH (20:32)
[2019-10-16 20:56] LABS: ARTERIAL BLOOD BASE EXCESS 0.9 mmol/L; ARTERIAL BLOOD FIO2 40%; ARTERIAL BLOOD H2CO3 1.29 mmol/L (1.05-1.35); ARTERIAL BLOOD HCO3 25.9 mmol/L (20-24); ARTERIAL BLOOD PCO2 42.8 mmHg (35-45); ARTERIAL BLOOD PO2 42.4 mmHg (80-100); ARTERIAL BLOOD TOTAL CO2 27.2 mmol/L (21-25)
[2019-10-16] MEDS: DOXEPIN HCL 10 MG CAPSULE PO SCH (22:01)
[2019-10-16] MEDS: VANCOMYCIN HCL 500 MG in DEXTROSE 5%-WATER 100 ML IV SCH (22:26)
[2019-10-17] MEDS: PROPOFOL 1,000 MG/100 ML INFUS..BTL IV PRN ×4 (02:53→21:56)
[2019-10-17 03:09] LABS: ARTERIAL BLOOD BASE EXCESS 1.9 mmol/L; ARTERIAL BLOOD H2CO3 1.26 mmol/L (1.05-1.35); ARTERIAL BLOOD HCO3 26.6 mmol/L (20-24); ARTERIAL BLOOD O2 SATURATION 67.3 % (94-98); ARTERIAL BLOOD PCO2 41.9 mmHg (35-45); ARTERIAL BLOOD PH 7.42 (7.35-7.45); ARTERIAL BLOOD TOTAL CO2 27.9 mmol/L (21-25)
[2019-10-17 03:11] LABS: ABSOLUTE LYMPHOCYTES (AUTO) 1.4 10^3/uL (0.5-4.7); ABSOLUTE MONOCYTES (AUTO) 0.6 10^3/uL (0.1-1.4); ABSOLUTE NEUT (AUTO) 13.4 10^3/uL (1.7-8.2); BASOPHILS % (AUTO) 0.2 % (0-2); HEMATOCRIT 33.2 % (36.0-47.0); HEMOGLOBIN 11.3 g/dL (12.0-15.5); LYMPHOCYTES % (AUTO) 9.4 % (13-45); MEAN CORPUSCULAR HEMOGLOBIN 32.5 pg (27.0-33.4); MEAN CORPUSCULAR VOLUME 96 fl (80-97); MONOCYTES % (AUTO) 3.9 % (3-13); PLATELET COUNT 181 10^3/uL (150-450); RED BLOOD COUNT 3.47 10^6/uL (3.72-5.28); SEGMENTED NEUTROPHILS % (AUTO) 86.5 % (42-78); TOTAL CELLS COUNTED % (AUTO) 100 %; WHITE BLOOD COUNT 15.4 10^3/uL (4.0-10.5)
[2019-10-17 03:22] LABS: INTERNATIONAL RATION (INR) 0.97; PROTHROMBIN TIME 12.9 SEC (11.4-15.4)
[2019-10-17 03:23] LABS: PARTIAL THROMBOPLASTIN TIME 48.8 SEC (23.5-35.8)
[2019-10-17] MEDS: ALBUTEROL SULFATE HFA (90 MCG/PUFF) 8 GM MDI IH SCH ×5 (03:23→21:51)
[2019-10-17 03:25] LABS: D-DIMER 0.94 ug/mL (0.00-0.50)
[2019-10-17 03:30] LABS: BLOOD UREA NITROGEN 11 mg/dL (7-20); C-REACTIVE PROTEIN 11.5 mg/L (<10.0); CALCIUM 8.8 mg/dL (8.4-10.2); GLUCOSE 158 mg/dL (75-110); PHOSPHORUS 2.3 mg/dL (2.5-4.5); POTASSIUM 4.3 mmol/L (3.6-5.0)
[2019-10-17 03:33] LABS: CARBON DIOXIDE 29 mmol/L (22-30); CHLORIDE 107 mmol/L (98-107)
[2019-10-17 03:36] LABS: ARTERIAL BLOOD FIO2 40%
[2019-10-17 03:39] LABS: ARTERIAL BLOOD PO2 34.5 mmHg (80-100)
[2019-10-17] MEDS ORDERED: MILRINONE LACTATE/D5W 20 MG/100 ML RTUINJ IV PRN (03:54)
[2019-10-17 04:04] LABS: ANION GAP 3 (5-19)
[2019-10-17 04:14] LABS: CREATINE KINASE MB 7.07 ng/mL (<4.55)
[2019-10-17 04:18] LABS: TROPONIN I 0.811 ng/mL
[2019-10-17] MEDS: CEFEPIME HCL 2 GM in DEXTROSE 5%-WATER 50 ML IV SCH ×2 (05:15→20:06)
[2019-10-17] MEDS: AZITHROMYCIN 500 MG in DEXTROSE 5%-WATER 250 ML IV SCH (05:47)
[2019-10-17] MEDS: HEPARIN SOD (PORCINE) 1,000 UNIT/ML 10 ML VIAL IV PRN (09:17)
[2019-10-17] MEDS: FAMOTIDINE INJ/PF 20 MG/2 ML SDV IV SCH ×2 (09:17→21:51)
[2019-10-17] MEDS: ASPIRIN 325 MG TABLET PO SCH (09:17)
[2019-10-17] MEDS: FLUOXETINE HCL 20 MG CAPSULE PO SCH (09:17)
[2019-10-17] MEDS: GABAPENTIN 100 MG CAPSULE PO SCH ×2 (09:17→15:51)
[2019-10-17] MEDS: METHYLPREDNISOLONE INJ 40 MG/1 ML SDV IV SCH ×2 (09:17→21:51)
[2019-10-17] MEDS: DEXTROSE 5%-WATER 250 ML with NOREPINEPHRINE BITARTRATE 4 MG IV PRN ×2 (09:18)
[2019-10-17] MEDS: VANCOMYCIN HCL 500 MG in DEXTROSE 5%-WATER 100 ML IV SCH ×2 (09:56→21:52)
[2019-10-17] MEDS: HEPARIN SODIUM,PORCINE/D5W 25,000 UNIT/250 ML RTUINJ IV PRN (15:57)
[2019-10-17] MEDS: HYDROMORPHONE HCL 30 MG/60 ML RTUINJ IV PRN (19:00)
[2019-10-17] MEDS ORDERED: CEFEPIME INJ 2 GM VIAL ONE (19:51)
--- NOTE | 2019-10-17 20:11 | PDOC CRITICAL CARE PROG REPORT ---
General Date:: 10/17/19 ICU Day:: 3 Ventilator Day:: 3 Hospital Day:: 3 Resuscitation Status: Full Code Medical Power of Break Out Worker: González Events in the past 12 to 24 Hours:: 10.17.2019: Patient had been started on heparin secondary to troponin elevation and mild ST segment changes. She is SARS, 2-CoViD19 negative FiO2 requirements are improving as well as her inflammatory parameters. She is responding well to heparin therapy and steroid therapy. Sedation has been an ongoing issue and we have kept her heavily sedated pending her SARS, 2-CoViD19 status and because of a background of high anxiety disorder. 10.16.2019: Patient's agitation has been significant and she has been restarted on her home medications. On low-dose sedation she self extubated yesterday evening and had to be reintubated emergently. Since then her overall respiratory status has improved and she has now down to 40% FiO2. She does not have elevated peak or plateau pressures. Her neutrophil to lymphocyte ratio is 8.3 down from 8.6. D-dimer is down to 2.57 CRP is at 13 and ferritin is down to 950. Notably her troponin is mildly elevated and she has had subtle ST segment changes in the lateral leads. She was started on heparin therapy as well as aspirin and statin therapy meanwhile cardiology has been consulted. Has had no arrhythmias. When transitioning to a different form of narcotic medication patient became extremely agitated shaking the bed biting her tongue. She was given Ativan to suppress this. Review of systems relevant to events:: 10.17.2019: Patient had been started on milrinone for the suspicion of cardiomyopathy however mixed venous gases were acceptable and this was discontinued. He has had no dysrhythmias. She is weaning on Levophed at this time and this appears to be related to the amount of sedation the patient requires to keep her less agitated. 10.16.2019: Cardiology has performed a virtual consultation and are in agreement with our assessment. She had already been started on heparin aspirin and statin therapy and that is their recommendation as well. She is still on Levophed. Reason for ICU Addmission:: Acute hypoxic respiratory failure - Medications: Medications reviewed and adjusted accordingly: Yes Vasopressors:: Levophed at 2 mcg Physical Exam Vital Signs: Temp Pulse Resp BP Pulse Ox 98.8 F 71 15 97/66 L 100 10/17/19 16:00 10/17/19 11:43 10/17/19 19:14 10/17/19 19:14 10/17/19 19:14 Intake & Output 10/16/19 10/17/19 10/18/19 06:59 06:59 06:59 Intake Total 2947 3120 2095 Output Total 970 2612 895 Balance 3520 136 0752 Weight 47.5 kg 53.2 kg 53.2 kg Weight/Height Weight 53.2 kg Height 5 ft 1 in General appearance: PRESENT: no acute distress, disheveled, thin Exam: Older appearing 54-year-old female no active distress she is intubated sponsored noxious stimulus Head exam: PRESENT: atraumatic, normocephalic Eye exam: PRESENT: PERRLA. ABSENT: nystagmus, scleral icterus Ear exam: PRESENT: normal external ear exam Mouth exam: PRESENT: moist, neck supple Teeth exam: PRESENT: edentulous Neck exam: ABSENT: JVD, lymphadenopathy, thyromegaly, tracheal deviation Respiratory exam: PRESENT: unlabored, other - Lung sounds not auscultated secondary to the confines of PPE and poor auditory capability of disposable stethoscope. ABSENT: accessory muscle use, retraction, tachypnea Cardiovascular exam: PRESENT: RRR, other - Heart sounds not auscultated second martin to the confines of PPE and poor auditory capability of disposable stethoscope. ABSENT: bradycardia, irregular rhythm, tachycardia Pulses: PRESENT: +1 pedal pulses bilateral Vascular exam: PRESENT: normal capillary refill GI/Abdominal exam: PRESENT: soft, other - Gastric sounds not auscultated secondary to the confines of PPE and poor auditory capability of disposable stethoscope. ABSENT: ascites, distended, guarding, mass, organolmegaly, rebound, tenderness Rectal exam: PRESENT: deferred Gentrourinary exam: PRESENT: indwelling catheter Extremities exam: ABSENT: pedal edema Neurological exam: PRESENT: altered - Heavily sedated but responsive to stimulus Psychiatric exam: PRESENT: appropriate affect Skin exam: PRESENT: dry, intact, warm. ABSENT: cyanosis, rash Tubes/Lines: PRESENT: Endotracheal Tube, Central Line, Arterial Catheter - Dysfunctional, replaced today Laboratory/Radiographs Laboratory Results: 10/17/19 02:53 10/17/19 02:53 10/16/19 10/17/19 10/17/19 20:30 02:53 02:53 WBC RBC Hgb Hct MCV MCH MCHC RDW Plt Count Seg Neutrophils % Carbonic Acid 1.29 1.26 HCO3/H2CO3 Ratio 20:1 21:1 ABG pH 7.40 7.42 ABG pCO2 42.8 41.9 ABG pO2 42.4 L 34.5 L* ABG HCO3 25.9 H 26.6 H ABG O2 Saturation 78.0 L 67.3 L ABG Base Excess 0.9 1.9 FiO2 40% 40% Sodium 138.9 Potassium 4.3 Chloride 107 Carbon Dioxide 29 Anion Gap 3 L BUN 11 Creatinine 0.63 Est GFR ( Amer) > 60 Glucose 158 H Calcium 8.8 Phosphorus 2.3 L Magnesium 2.1 Ferritin 87.70 C-Reactive Protein 11.5 H 10/17/19 02:53 WBC 15.4 H RBC 3.47 L Hgb 11.3 L Hct 33.2 L MCV 96 MCH 32.5 MCHC 34.0 RDW 13.0 Plt Count 181 Seg Neutrophils % 86.5 H Carbonic Acid HCO3/H2CO3 Ratio ABG pH ABG pCO2 ABG pO2 ABG HCO3 ABG O2 Saturation ABG Base Excess FiO2 Sodium Potassium Chloride Carbon Dioxide Anion Gap BUN Creatinine Est GFR ( Amer) Glucose Calcium Phosphorus Magnesium Ferritin C-Reactive Protein 10/15/19 10/15/19 10/15/19 02:20 06:30 12:30 Creatine Kinase CK-MB (CK-2) Troponin I 0.363 1.540 1.930 NT-Pro-B Natriuret Pep 193 H 10/15/19 10/15/19 10/15/19 18:17 21:15 21:15 Creatine Kinase 186 H CK-MB (CK-2) 15.30 H Troponin I 2.170 NT-Pro-B Natriuret Pep 4080 H 10/16/19 10/17/19 10/17/19 04:29 02:53 10:15 Creatine Kinase CK-MB (CK-2) 7.07 H Troponin I 2.140 0.811 0.668 NT-Pro-B Natriuret Pep 5830 H Impressions: Chest X-Ray 10/15/19 02:28 IMPRESSION: Interval intubation. Else stable. All labs, radiographs, diagnostic studies and EKGs were personally reviewed: Yes In addition, reports of radiographic and diagnostic studies were read: Yes Assessment and Plan - Diagnosis (1) Sepsis without septic shock Is this a current diagnosis for this admission?: Yes (2) Elevated troponin I measurement Is this a current diagnosis for this admission?: Yes (3) Suspected COVID-19 virus infection Is this a current diagnosis for this admission?: Yes (4) Hypotension (arterial) Is this a current diagnosis for this admission?: Yes (6) Acute exacerbation of emphysema Is this a current diagnosis for this admission?: Yes Plan Summary: 10.17.2019: Patient is known SARS, 2-CoViD19 negative and we will begin the process of weaning as her condition stabilizes. Biggest issue with this patient will be her sedation. She is extremely anxious individual at baseline. We will continue heparin until there is improvement in her troponin and will recheck EKG in the morning for follow-up. Now that she is SARS, 2-CoViD19 negative she may be a candidate for cardiac evaluation sooner than later. Continue supportive care Continue steroids I have increased her Neurontin to assist with control of agitation and any possible seizures that she may have had in the past. Continue statin and aspirin therapy. 10.16.2019: I am concerned about this patient's coronary status. Had a lengthy discussion with Dr. Miller who was in the ICU and performed a virtual consult secondary to SARS, 2-CoViD19. I performed the care ultrasound and basic echo at bedside. Does have B-lines and pleural thickening. She remains hypotensive but her IVC is filled. Have sent mixed venous gas for evaluation of function. On the basic echo there is evidence of lateral wall regional motion abnormality and septal wall seen best on parasternal short axis view. The EF appears to be approximately 38 to 45% and is not severe enough to explain her hypotension. More formal echo has been ordered. She does have EKG changes that I personally evaluated in the lateral leads which prompted the call to cardiology. They do agree. Originally we were going to treat conservatively but given the echo findings and the persistent hypotension and concern that the hypotension may also be related to a cardiogenic source in addition to a possible sepsis origin. Will broaden antibiotics as well. Unfortunately we are unable to obtain timely procalcitonin's to be able to adjudicate or de-escalate therapy. We are concerned that she has SARS, 2-CoViD19 but her inflammatory parameters are not severe. Given her cardiac issues we have not started her on Plaquenil and would not unless we had positive confirmation. Her hypoxia is not severe and we have not had to escalate ventilator therapy. Her troponins are elevated which may be printing supplies sales representative of a cardiac dysfunction or lung. There may be some degree of pulmonary hypertension however right ventricular shunt appears intact. Again will follow mixed venous gas. I spoke again with Dr. Miller to determine whether this patient may need a more timely cardiac catheterization. We are awaiting notification from [facility] to determine whether it may be in her best interest to have a cardiac catheterization. Currently all of the local hospitals have pandemic based capacity issues. Given the fact that she is not in extremis they are suggesting continued conservative care unless she worsens. This is certainly reasonable given her relatively stable status. We will follow lactic acid and determine if there is any worsening in her condition and if so we will need to reconsider. As it stands now the hospital at [facility] is considering the possibility of having her transferred there in case she worsens. We will continue to monitor her care. They have assured us that they will be in contact with us as well. As far as her sedation we have changed her to Dilaudid basal rate and have had to give her Ativan as well. No evidence to support any serotonin syndrome but will need to continue to watch this. Her medications have been started as of yesterday. We will wean her Sinequan and have decreased the dose to 5 mg. She does not have a QRS prolongation and her QT C is acceptable. Mixed venous gas is Critical Time Critical Time (minutes): 45 Level of Care: ICU -: 1. The care of a critical patient is a dynamic process. This note is a printing supplies sales representative synopsis but static in nature. The timeframe for treatments given in order is not necessarily the actual time these treatments may have been done. 2. This patient requires critical care secondary to ongoing requirements for therapy not offered or safe outside the critical care environment. Transfer to a lower level of care will result in altered life or limb morbidity and mortality. 3. Multidisciplinary rounds completed. 4. ABCDE bundle addressed.
--- NOTE | 2019-10-17 20:16 | Operative Report ---
Bedside Procedure - History of Present Illness History of Present Illness: 54-year-old white female presented with hypoxia and was obtunded. She required intubation by EMS at home. Admitted to ICU on mechanical ventilation and under SARS, 2-CoViD19 rule out. As patient is on mechanical ventilation I am unable to ascertain any review of systems. Did speak with her González who states that she has had a significant cough for the last 1 to 2 days. She had recently been diagnosed with emphysema and other than several doctors appointments has not had any known ill contacts. As far as the notices not been any fever. She is brought to the ICU where she was agitated and difficult to sedate. At one point she had a transient drop in blood pressure that responded to IV fluids. There was no fever. Indication for Procedure: Dysfunctional right artery catheter Date: 10/15/19 Provider: OVIDIO CARNEY - Additional Procedures Arterial Line Time performed: 16:00 Notes: Arterial catheter insertion Estimated blood loss 5 to 10 cc Cleansed with chlorhexidine and used for regional barrier precautions, sterile gloves. PPE for SARS, 2-CoViD19 Left radial chosen site of access. Artery palpated and Seldinger needle placed without difficulty. Good arterial blood flow was noted. First attempt with wire was successful. Wire was placed without difficulty and the needle was removed. Next, a 20-gauge small catheter was inserted without difficulty over wire. Good pulsatile blood flow was noted and was allowed to occur for 3-4 beats to allow for clearing of debris. Catheter was then sutured in place and affixed to transducer tubing. Reapplication of chlorhexidine occurred and a sterile dressing was applied. She tolerated the procedure well. No complications Procedure excludes critical care time
[2019-10-17] MEDS: DOXEPIN HCL 10 MG CAPSULE PO SCH (21:51)
[2019-10-17] MEDS ORDERED: GABAPENTIN 100 MG CAPSULE PO ONE (22:00)
[2019-10-17] MEDS ORDERED: ATORVASTATIN CALCIUM 40 MG TABLET PO SCH (22:00)
[2019-10-18] MEDS: ALBUTEROL SULFATE HFA (90 MCG/PUFF) 8 GM MDI IH SCH ×6 (02:07→21:53)
[2019-10-18] MEDS: PROPOFOL 1,000 MG/100 ML INFUS..BTL IV PRN (04:15)
[2019-10-18] MEDS: HEPARIN SOD (PORCINE) 1,000 UNIT/ML 10 ML VIAL IV PRN (04:51)
[2019-10-18] MEDS: AZITHROMYCIN 500 MG in DEXTROSE 5%-WATER 250 ML IV SCH (05:20)
[2019-10-18] MEDS: CEFEPIME HCL 2 GM in DEXTROSE 5%-WATER 50 ML IV SCH ×2 (05:20→19:11)
[2019-10-18 05:46] LABS: ABSOLUTE LYMPHOCYTES (AUTO) 1.3 10^3/uL (0.5-4.7); ABSOLUTE MONOCYTES (AUTO) 0.7 10^3/uL (0.1-1.4); ABSOLUTE NEUT (AUTO) 8.6 10^3/uL (1.7-8.2); BASOPHILS % (AUTO) 0.1 % (0-2); HEMATOCRIT 30.9 % (36.0-47.0); HEMOGLOBIN 10.7 g/dL (12.0-15.5); LYMPHOCYTES % (AUTO) 12.5 % (13-45); MEAN CORPUSCULAR HEMOGLOBIN 33.2 pg (27.0-33.4); MEAN CORPUSCULAR HGB CONC 34.5 g/dL (32.0-36.0); MEAN CORPUSCULAR VOLUME 96 fl (80-97); MONOCYTES % (AUTO) 6.3 % (3-13); PLATELET COUNT 158 10^3/uL (150-450); RED BLOOD COUNT 3.21 10^6/uL (3.72-5.28); RED CELL DISTRIBUTION WIDTH 13.5 % (11.5-14.0); SEGMENTED NEUTROPHILS % (AUTO) 81.1 % (42-78); TOTAL CELLS COUNTED % (AUTO) 100 %; WHITE BLOOD COUNT 10.6 10^3/uL (4.0-10.5)
[2019-10-18 05:54] LABS: ARTERIAL BLOOD BASE EXCESS -0.5 mmol/L; ARTERIAL BLOOD H2CO3 1.49 mmol/L (1.05-1.35); ARTERIAL BLOOD HCO3 25.8 mmol/L (20-24); ARTERIAL BLOOD O2 SATURATION 69.2 % (94-98); ARTERIAL BLOOD PCO2 49.5 mmHg (35-45); ARTERIAL BLOOD PH 7.34 (7.35-7.45); ARTERIAL BLOOD TOTAL CO2 27.3 mmol/L (21-25)
[2019-10-18] MEDS: HYDROMORPHONE HCL 30 MG/60 ML RTUINJ IV PRN (05:54)
[2019-10-18 05:58] LABS: ARTERIAL BLOOD FIO2 40%; ARTERIAL BLOOD PO2 38.8 mmHg (80-100)
[2019-10-18 06:04] LABS: BLOOD UREA NITROGEN 15 mg/dL (7-20); CALCIUM 8.5 mg/dL (8.4-10.2); GLUCOSE 143 mg/dL (75-110); PHOSPHORUS 3.6 mg/dL (2.5-4.5); POTASSIUM 4.5 mmol/L (3.6-5.0)
[2019-10-18 06:09] LABS: CARBON DIOXIDE 31 mmol/L (22-30); CHLORIDE 104 mmol/L (98-107)
[2019-10-18 06:17] LABS: ANION GAP 1 (5-19)
--- NOTE | 2019-10-18 06:40 | RADIOLOGY REPORT (SQ) ---
EXAM: XR Chest, 1 View EXAM DATE/TIME: 10/18/2019 5:59 AM CLINICAL HISTORY: The patient is 54 years old and is Female; respiratory failure TECHNIQUE: Frontal view of the chest. COMPARISON: Chest radiograph from 10/16/2019 FINDINGS: LUNGS: Unremarkable. No consolidation. PLEURAL SPACE: Unremarkable. No pneumothorax. HEART: No significant enlargement of the cardiac silhouette. MEDIASTINUM: Unremarkable. BONES/JOINTS: No acute osseous findings. TUBES, LINES AND DEVICES: Right internal jugular central venous catheter terminates in the SVC. Endotracheal tube terminates approximately 2 cm above the duane. Enteric tube loops in the proximal stomach and terminates in the body of the stomach. IMPRESSION: No acute findings visualized in the chest.
[2019-10-18 08:23] LABS: ARTERIAL BLOOD BASE EXCESS -0.9 mmol/L; ARTERIAL BLOOD FIO2 35%; ARTERIAL BLOOD H2CO3 1.33 mmol/L (1.05-1.35); ARTERIAL BLOOD HCO3 24.6 mmol/L (20-24); ARTERIAL BLOOD O2 SATURATION 94.3 % (94-98); ARTERIAL BLOOD PCO2 44.3 mmHg (35-45); ARTERIAL BLOOD PH 7.36 (7.35-7.45); ARTERIAL BLOOD PO2 73.7 mmHg (80-100); ARTERIAL BLOOD TOTAL CO2 25.9 mmol/L (21-25)
[2019-10-18] MEDS: FLUOXETINE HCL 20 MG CAPSULE PO SCH (09:32)
[2019-10-18] MEDS: FAMOTIDINE INJ/PF 20 MG/2 ML SDV IV SCH ×2 (09:33→21:51)
[2019-10-18] MEDS: VANCOMYCIN HCL 500 MG in DEXTROSE 5%-WATER 100 ML IV SCH (09:34)
[2019-10-18] MEDS: METHYLPREDNISOLONE INJ 40 MG/1 ML SDV IV SCH ×2 (09:34→21:51)
[2019-10-18] MEDS ORDERED: DEXMEDETOMIDINE IN 0.9 % NACL 400 MCG/100 ML RTUPB IV PRN (09:51)
[2019-10-18] MEDS ORDERED: ASPIRIN 325 MG TABLET PO SCH (10:00)
[2019-10-18] MEDS ORDERED: GABAPENTIN 100 MG CAPSULE PO SCH (10:00)
[2019-10-18 10:35] LABS: VANCOMYCIN,TROUGH 7.6 ug/mL (5.0-20.0)
[2019-10-18] MEDS: GABAPENTIN 100 MG CAPSULE PO SCH (10:39)
[2019-10-18] MEDS: FUROSEMIDE INJ/PF 20 MG/2 ML SDV IV SCH ×3 (10:55→21:51)
[2019-10-18] MEDS ORDERED: ASPIRIN 81 MG TABLET, ENT COATED PO SCH (12:45)
[2019-10-18] MEDS ORDERED: TRAZODONE HCL 50 MG TABLET NG PRN (13:00)
[2019-10-18] MEDS ORDERED: FUROSEMIDE INJ/PF 20 MG/2 ML SDV ONE (15:18)
[2019-10-18] MEDS: GABAPENTIN 100 MG CAPSULE NG SCH ×2 (15:23→19:11)
--- NOTE | 2019-10-18 16:50 | PDOC CRITICAL CARE PROG REPORT ---
General Date:: 10/18/19 ICU Day:: 4 Ventilator Day:: 4 Hospital Day:: 4 Resuscitation Status: Full Code Medical Power of Medical Records Clerk: González Events in the past 12 to 24 Hours:: 10.18.2019: Patient had an uneventful past 12 hours with improvement in oxygenation and status. Levophed requirements have been reduced and she currently is off vasopressor therapy. Blood gas this morning originally is from a central venous line. Arterial blood gas is 4: Patient had been started on heparin secondary to troponin elevation and mild ST segment changes. She is SARS, 2-CoViD19 negative FiO2 requirements are improving as well as her inflammatory parameters. She is responding well to heparin therapy and steroid therapy. Sedation has been an ongoing issue and we have kept her heavily sedated pending her SARS, 2-CoViD19 status and because of a background of high anxiety disorder. 10.16.2019: Patient's agitation has been significant and she has been restarted on her home medications. On low-dose sedation she self extubated yesterday evening and had to be reintubated emergently. Since then her overall respiratory status has improved and she has now down to 40% FiO2. She does not have elevated peak or plateau pressures. Her neutrophil to lymphocyte ratio is 8.3 down from 8.6. D-dimer is down to 2.57 CRP is at 13 and ferritin is down to 950. Notably her troponin is mildly elevated and she has had subtle ST segment changes in the lateral leads. She was started on heparin therapy as well as aspirin and statin therapy meanwhile cardiology has been consulted. Has had no arrhythmias. When transitioning to a different form of narcotic medication patient became extremely agitated shaking the bed biting her tongue. She was given Ativan to suppress this. Review of systems relevant to events:: 10.18.2019: Blood pressure has stabilized. No seizures noted and no arrhythmias. 10.17.2019: Patient had been started on milrinone for the suspicion of cardiomyopathy however mixed venous gases were acceptable and this was discontinued. He has had no dysrhythmias. She is weaning on Levophed at this time and this appears to be related to the amount of sedation the patient requires to keep her less agitated. 10.16.2019: Cardiology has performed a virtual consultation and are in agreement with our assessment. She had already been started on heparin aspirin and statin therapy and that is their recommendation as well. She is still on Levophed. Reason for ICU Addmission:: Acute hypoxic respiratory failure - Medications: Medications reviewed and adjusted accordingly: Yes Vasopressors:: Levophed off Sedation:: Propofol and Dilaudid Physical Exam Vital Signs: Temp Pulse Resp BP Pulse Ox 99.5 F 123 H 9 L 139/78 H 97 10/18/19 07:42 10/18/19 07:42 10/18/19 07:42 10/18/19 07:42 10/18/19 07:42 Intake & Output 10/17/19 10/18/19 10/19/19 06:59 06:59 06:59 Intake Total 3120 2675 Output Total 2612 1410 110 Balance 508 1265 -110 Weight 53.2 kg 57.3 kg Weight/Height Weight 57.3 kg Height 5 ft 1 in General appearance: PRESENT: no acute distress, thin Exam: Intubated older appearing nontoxic but ill and chronically ill-appearing 54-year-old female no active distress responsive to noxious stimulus Head exam: PRESENT: atraumatic, normocephalic Eye exam: PRESENT: conjunctiva pink, PERRLA. ABSENT: conjunctival injection, nystagmus, scleral icterus Mouth exam: PRESENT: dry mucosa, neck supple Teeth exam: PRESENT: edentulous Neck exam: ABSENT: carotid bruit, JVD, lymphadenopathy, thyromegaly, tracheal deviation Respiratory exam: PRESENT: unlabored. ABSENT: accessory muscle use, tachypnea Cardiovascular exam: PRESENT: RRR, +S1, +S2. ABSENT: irregular rhythm, tachycardia Vascular exam: PRESENT: normal capillary refill GI/Abdominal exam: PRESENT: normal bowel sounds, soft. ABSENT: ascites, distended, guarding, mass, organolmegaly, rebound, tenderness Rectal exam: PRESENT: deferred Gentrourinary exam: PRESENT: indwelling catheter Extremities exam: PRESENT: pedal edema, +1 edema Musculoskeletal exam: ABSENT: deformity, dislocation Neurological exam: PRESENT: altered - Sedated but follows commands no focal motor deficits. ABSENT: motor sensory deficit Psychiatric exam: ABSENT: agitated Skin exam: PRESENT: dry, intact, warm. ABSENT: cyanosis, mottled, rash Tubes/Lines: PRESENT: Endotracheal Tube, Central Line, Arterial Catheter - Orogastric tube, Estrada type urinary catheter Laboratory/Radiographs Laboratory Results: 10/18/19 05:20 10/18/19 05:20 10/18/19 10/18/19 10/18/19 05:20 05:20 05:20 WBC RBC Hgb Hct MCV MCH MCHC RDW Plt Count Seg Neutrophils % Carbonic Acid 1.49 H HCO3/H2CO3 Ratio 17:1 ABG pH 7.34 L ABG pCO2 49.5 H ABG pO2 38.8 L* ABG HCO3 25.8 H ABG O2 Saturation 69.2 L ABG Base Excess -0.5 FiO2 40% Sodium Potassium Chloride Carbon Dioxide Anion Gap BUN Creatinine Est GFR ( Amer) Glucose Calcium Phosphorus Magnesium Ammonia < 8.7 L Triglycerides 173 H 10/18/19 10/18/19 05:20 05:20 WBC 10.6 H RBC 3.21 L Hgb 10.7 L Hct 30.9 L MCV 96 MCH 33.2 MCHC 34.5 RDW 13.5 Plt Count 158 Seg Neutrophils % 81.1 H Carbonic Acid HCO3/H2CO3 Ratio ABG pH ABG pCO2 ABG pO2 ABG HCO3 ABG O2 Saturation ABG Base Excess FiO2 Sodium 136.3 L Potassium 4.5 Chloride 104 Carbon Dioxide 31 H Anion Gap 1 L BUN 15 Creatinine 0.59 Est GFR ( Amer) > 60 Glucose 143 H Calcium 8.5 Phosphorus 3.6 Magnesium 2.1 Ammonia Triglycerides 10/15/19 10/15/19 10/15/19 02:20 06:30 12:30 Creatine Kinase CK-MB (CK-2) Troponin I 0.363 1.540 1.930 NT-Pro-B Natriuret Pep 193 H 10/15/19 10/15/19 10/15/19 18:17 21:15 21:15 Creatine Kinase 186 H CK-MB (CK-2) 15.30 H Troponin I 2.170 NT-Pro-B Natriuret Pep 4080 H 10/16/19 10/17/19 10/17/19 04:29 02:53 10:15 Creatine Kinase CK-MB (CK-2) 7.07 H Troponin I 2.140 0.811 0.668 NT-Pro-B Natriuret Pep 5830 H Impressions: Chest X-Ray 10/18/19 06:00 IMPRESSION: No acute findings visualized in the chest. All labs, radiographs, diagnostic studies and EKGs were personally reviewed: Yes In addition, reports of radiographic and diagnostic studies were read: Yes Assessment and Plan - Diagnosis (1) Sepsis without septic shock Is this a current diagnosis for this admission?: Yes (2) Elevated troponin I measurement Is this a current diagnosis for this admission?: Yes (3) Suspected COVID-19 virus infection Is this a current diagnosis for this admission?: Yes (4) Hypotension (arterial) Is this a current diagnosis for this admission?: Yes (6) Acute exacerbation of emphysema Is this a current diagnosis for this admission?: Yes Plan Summary: 10.18.2019: The patient has had no hemodynamic compromise with the troponin elevation. Troponins are now improving. She is on medical management for her disease and we will start the process of DREW and beta-nilsa once we can be assured her blood pressure is stable. Today we will begin diuresis and plan for SBT with liberation from ventilator. Have started Precedex protocol anticipation to liberate later this afternoon. Her hypotension may be a manifestation of the need for excessive amount of propofol and given the fact that her chest x-ray is improved will discontinue antibiotics in 24 hours. Do not have the comfort of knowing a procalcitonin level in a timely fashion to be able to utilize this for de-escalation of therapy. We will give 1 dose of Lasix in an attempt to improve her chances of liberation. Continuing to wean Sinequan 10.17.2019: Patient is known SARS, 2-CoViD19 negative and we will begin the process of weaning as her condition stabilizes. Biggest issue with this patient will be her sedation. She is extremely anxious individual at baseline. We will continue heparin until there is improvement in her troponin and will recheck EKG in the morning for follow-up. Now that she is SARS, 2-CoViD19 negative she may be a candidate for cardiac evaluation sooner than later. Continue supportive care Continue steroids I have increased her Neurontin to assist with control of agitation and any possible seizures that she may have had in the past. Continue statin and aspirin therapy. 10.16.2019: I am concerned about this patient's coronary status. Had a lengthy discussion with Dr. Miller who was in the ICU and performed a virtual consult secondary to SARS, 2-CoViD19. I performed the care ultrasound and basic echo at bedside. Does have B-lines and pleural thickening. She remains hypotensive but her IVC is filled. Have sent mixed venous gas for evaluation of function. On the basic echo there is evidence of lateral wall regional motion abnormality and septal wall seen best on parasternal short axis view. The EF appears to be approximately 38 to 45% and is not severe enough to explain her hypotension. More formal echo has been ordered. She does have EKG changes that I personally evaluated in the lateral leads which prompted the call to cardiology. They do agree. Originally we were going to treat conservatively but given the echo findings and the persistent hypotension and concern that the hypotension may also be related to a cardiogenic source in addition to a possible sepsis origin. Will broaden antibiotics as well. Unfortunately we are unable to obtain timely procalcitonin's to be able to adjudicate or de-escalate therapy. We are concerned that she has SARS, 2-CoViD19 but her inflammatory parameters are not severe. Given her cardiac issues we have not started her on Plaquenil and would not unless we had positive confirmation. Her hypoxia is not severe and we have not had to escalate ventilator therapy. Her troponins are elevated which may be pharmacy services representative of a cardiac dysfunction or lung. There may be some degree of pulmonary hypertension however right ventricular shunt appears intact. Again will follow mixed venous gas. I spoke again with Dr. Miller to determine whether this patient may need a more timely cardiac catheterization. We are awaiting notification from [facility] to determine whether it may be in her best interest to have a cardiac catheterization. Currently all of the local hospitals have pandemic based capacity issues. Given the fact that she is not in extremis they are suggesting continued conservative care unless she worsens. This is certainly reasonable given her relatively stable status. We will follow lactic acid and determine if there is any worsening in her condition and if so we will need to reconsider. As it stands now the hospital at [facility] is considering the possibility of having her transferred there in case she worsens. We will continue to monitor her care. They have assured us that they will be in contact with us as well. As far as her sedation we have changed her to Dilaudid basal rate and have had to give her Ativan as well. No evidence to support any serotonin syndrome but will need to continue to watch this. Her medications have been started as of yesterday. We will wean her Sinequan and have decreased the dose to 5 mg. She does not have a QRS prolongation and her QT C is acceptable. Critical Time Critical Time (minutes): 45 Level of Care: ICU -: 1. The care of a critical patient is a dynamic process. This note is a represe ntative synopsis but static in nature. The timeframe for treatments given in order is not necessarily the actual time these treatments may have been done. 2. This patient requires critical care secondary to ongoing requirements for therapy not offered or safe outside the critical care environment. Transfer to a lower level of care will result in altered life or limb morbidity and mortality. 3. Multidisciplinary rounds completed. 4. ABCDE bundle addressed.
[2019-10-18] MEDS ORDERED: HYDROMORPHONE HCL INJ/PF 2 MG/ML AMPULE IV PRN ×2 (18:00→18:02)
[2019-10-18] MEDS: VANCOMYCIN HCL 750 MG in DEXTROSE 5%-WATER 250 ML IV SCH (19:12)
[2019-10-18 19:17] LABS: ARTERIAL BLOOD BASE EXCESS 7.6 mmol/L; ARTERIAL BLOOD H2CO3 1.29 mmol/L (1.05-1.35); ARTERIAL BLOOD HCO3 31.7 mmol/L (20-24); ARTERIAL BLOOD O2 SATURATION 95.4 % (94-98); ARTERIAL BLOOD PCO2 42.8 mmHg (35-45); ARTERIAL BLOOD PH 7.49 (7.35-7.45); ARTERIAL BLOOD PO2 71.6 mmHg (80-100); ARTERIAL BLOOD TOTAL CO2 33.1 mmol/L (21-25)
[2019-10-18 19:18] LABS: ARTERIAL BLOOD FIO2 30%
[2019-10-18] MEDS: ATORVASTATIN CALCIUM 40 MG TABLET NG SCH (21:52)
[2019-10-18] MEDS: DOXEPIN HCL 10 MG CAPSULE NG SCH (21:52)
[2019-10-18] MEDS ORDERED: IPRATROPIUM/ALBUTEROL 0.5-2.5 MG/3 ML AMPUL NEB ONE ×2 (23:31→23:45)
[2019-10-19 05:09] LABS: HEMOGLOBIN 11.2 g/dL (12.0-15.5); PLATELET COUNT 169 10^3/uL (150-450); TOTAL CELLS COUNTED % (AUTO) 100 %; WHITE BLOOD COUNT 14.4 10^3/uL (4.0-10.5)
[2019-10-19 05:13] LABS: INTERNATIONAL RATION (INR) 0.93; PROTHROMBIN TIME 12.5 SEC (11.4-15.4)
[2019-10-19 05:14] LABS: PARTIAL THROMBOPLASTIN TIME 56.8 SEC (23.5-35.8)
[2019-10-19 05:16] LABS: ABSOLUTE LYMPHOCYTES (AUTO) 2.1 10^3/uL (0.5-4.7); ABSOLUTE MONOCYTES (AUTO) 1.3 10^3/uL (0.1-1.4); ABSOLUTE NEUT (AUTO) 10.9 10^3/uL (1.7-8.2); BASOPHILS % (AUTO) 0.1 % (0-2); HEMATOCRIT 32.2 % (36.0-47.0); LYMPHOCYTES % (AUTO) 14.7 % (13-45); MEAN CORPUSCULAR HEMOGLOBIN 32.8 pg (27.0-33.4); MEAN CORPUSCULAR HGB CONC 34.8 g/dL (32.0-36.0); MEAN CORPUSCULAR VOLUME 94 fl (80-97); MONOCYTES % (AUTO) 9.3 % (3-13); RED BLOOD COUNT 3.41 10^6/uL (3.72-5.28); RED CELL DISTRIBUTION WIDTH 12.7 % (11.5-14.0); SEGMENTED NEUTROPHILS % (AUTO) 75.9 % (42-78)
[2019-10-19 05:34] LABS: ANION GAP 7 (5-19); BLOOD UREA NITROGEN 18 mg/dL (7-20); CALCIUM 8.9 mg/dL (8.4-10.2); CARBON DIOXIDE 36 mmol/L (22-30); CHLORIDE 99 mmol/L (98-107); GLUCOSE 117 mg/dL (75-110); PHOSPHORUS 3.3 mg/dL (2.5-4.5)
[2019-10-19] MEDS: VANCOMYCIN HCL 750 MG in DEXTROSE 5%-WATER 250 ML IV SCH (05:40)
[2019-10-19] MEDS: FUROSEMIDE INJ/PF 20 MG/2 ML SDV IV SCH (05:41)
[2019-10-19] MEDS: CEFEPIME HCL 2 GM in DEXTROSE 5%-WATER 50 ML IV SCH (05:41)
[2019-10-19] MEDS: AZITHROMYCIN 500 MG in DEXTROSE 5%-WATER 250 ML IV SCH (05:41)
[2019-10-19] MEDS: ALBUTEROL SULFATE HFA (90 MCG/PUFF) 8 GM MDI IH SCH ×3 (05:42→09:33)
[2019-10-19] MEDS: HEPARIN SOD (PORCINE) 1,000 UNIT/ML 10 ML VIAL IV PRN (05:42)
[2019-10-19 05:43] LABS: POTASSIUM 3.5 mmol/L (3.6-5.0)
[2019-10-19] MEDS: HEPARIN SODIUM,PORCINE/D5W 25,000 UNIT/250 ML RTUINJ IV PRN (05:43)
[2019-10-19] MEDS ORDERED: ASPIRIN 81 MG TABLET, CHEWABLE ONE (08:22)
[2019-10-19 08:36] LABS: RES PRO RESPIR SYNCYTIAL VIRUS Not Detected (Not Detect); RES PRO RHINOVIRUS/ENTEROVIRUS Not Detected (Not Detect); RESP PRO CHLAMYDOPHILA PNEUMON Not Detected (Not Detect); RESP PRO INFLUENZA A/H1-2009 Not Detected (Not Detect); RESP PROF BORDETELLA PERTUSSIS Not Detected (Not Detect); RESP PROF CORONAVIRUS 229E Not Detected (Not Detect); RESP PROF CORONAVIRUS HKU1 Not Detected (Not Detect); RESP PROF CORONAVIRUS NL63 Not Detected (Not Detect); RESP PROF CORONAVIRUS OC43 Not Detected (Not Detect); RESP PROF INFLUENZA A/H1 Not Detected (Not Detect); RESP PROF INFLUENZA A/H3 Not Detected (Not Detect); RESP PROF METAPNEUMOVIRUS Not Detected (Not Detect); RESP PROF PARAINFLUENZA 1 Not Detected (Not Detect); RESP PROF PARAINFLUENZA 2 Not Detected (Not Detect); RESP PROF PARAINFLUENZA 3 Not Detected (Not Detect); RESP PROF PARAINFLUENZA 4 Not Detected (Not Detect); RESPIRATORY PROF INFLUENZA A Not Detected (Not Detect); RESPIRATORY PROF INFLUENZA B Not Detected (Not Detect)
[2019-10-19] MEDS: FAMOTIDINE INJ/PF 20 MG/2 ML SDV IV SCH (09:04)
[2019-10-19] MEDS: GABAPENTIN 100 MG CAPSULE NG SCH ×2 (09:04→14:10)
[2019-10-19] MEDS: METHYLPREDNISOLONE INJ 40 MG/1 ML SDV IV SCH ×3 (09:04→21:30)
[2019-10-19] MEDS: ASPIRIN 81 MG TABLET, CHEWABLE NG SCH (09:04)
[2019-10-19] MEDS: FLUOXETINE HCL 20 MG CAPSULE NG SCH (09:07)
--- NOTE | 2019-10-19 09:09 | EKG REPORT ---
SEVERITY:- ABNORMAL ECG - SINUS TACHYCARDIA BIATRIAL ABNORMALITIES : Confirmed by: Emily Romero MD 19-Oct-2019 09:08:36
--- NOTE | 2019-10-19 09:10 | EKG REPORT ---
SEVERITY:- ABNORMAL ECG - SINUS RHYTHM PROBABLE LEFT ATRIAL ABNORMALITY ABNORMAL T, CONSIDER ISCHEMIA, ANTERIOR LEADS : Confirmed by: Emily Romero MD 19-Oct-2019 09:09:14
[2019-10-19] MEDS ORDERED: METOPROLOL TARTRATE PF/INJ 5 MG/5 ML SDV IV ONE (09:44)
[2019-10-19] MEDS ORDERED: ALPRAZOLAM 0.25 MG TABLET SL ONE (09:48)
[2019-10-19] MEDS ORDERED: ALBUTEROL SULFATE HFA (90 MCG/PUFF) 8 GM MDI IH SCH (10:00)
[2019-10-19] MEDS ORDERED: (PENDING PHARMACY ID) (Umeclidinium Brm/Vilanterol Tr [Anoro Ellipta 62.5-25 Mcg Inh] 1 EA IH SCH (10:00)
[2019-10-19] MEDS: METOPROLOL TARTRATE 25 MG TABLET PO SCH ×2 (10:06→21:32)
[2019-10-19] MEDS ORDERED: POTASSIUM CHLORIDE 20 MEQ PACKET PO ONE (10:19)
[2019-10-19] MEDS: ALBUTEROL SULFATE HFA (90 MCG/PUFF) 200 PUFF/8.5 GM MDI IH SCH ×4 (10:20→21:42)
[2019-10-19 10:32] LABS: RESP PRO MYCOPLASMA PNEUMONIAE Not Detected (Not Detect)
--- NOTE | 2019-10-19 10:33 | PDOC CRITICAL CARE PROG REPORT ---
General Date:: 10/19/19 ICU Day:: 5 Hospital Day:: 5 Resuscitation Status: Full Code Medical Power of Basket Sorter: Gonázlez Events in the past 12 to 24 Hours:: 10.19.2019: Patient was successfully extubated and placed on nasal cannula without incident. There was subjective chest pain with cough but this did not radiate and was not associated with dyspnea or hemodynamic compromise. She has been quite upset this morning and misses her . She has a history of significant anxiety. 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 This morning she has had some tachycardia which is improved with time and reassurance. 10.18.2019: Patient had an uneventful past 12 hours with improvement in oxygenation and status. Levophed requirements have been reduced and she currently is off vasopressor therapy. Blood gas this morning originally is from a central venous line. Arterial blood gas is acceptable 10.17.2019: Patient had been started on heparin secondary to troponin elevation and mild ST segment changes. She is SARS, 2-CoViD19 negative FiO2 requirements are improving as well as her inflammatory parameters. She is responding well to heparin therapy and steroid therapy. Sedation has been an ongoing issue and we have kept her heavily sedated pending her SARS, 2-CoViD19 status and because of a background of high anxiety disorder. 10.16.2019: Patient's agitation has been significant and she has been restarted on her home medications. On low-dose sedation she self extubated yesterday evening and had to be reintubated emergently. Since then her overall respiratory status has improved and she has now down to 40% FiO2. She does not have elevated peak or plateau pressures. Her neutrophil to lymphocyte ratio is 8.3 down from 8.6. D-dimer is down to 2.57 CRP is at 13 and ferritin is down to 950. Notably her troponin is mildly elevated and she has had subtle ST segment changes in the lateral leads. She was started on heparin therapy as well as aspirin and statin therapy meanwhile cardiology has been consulted. Has had no arrhythmias. When transitioning to a different form of narcotic medication patient became extremely agitated shaking the bed biting her tongue. She was given Ativan to suppress this. Review of systems relevant to events:: 10.19.2019: Noted tachycardia and hypertension this morning which have improved with antianxiety measures. Have also started beta-nilsa therapy in light of her recent events. Heparin has been discontinued. Started p.o. Lasix as well. Have started DREW inhibitor which paradoxically may protect this patient from SARS, 2-CoViD19 10.18.2019: Blood pressure has stabilized. No seizures noted and no arrhythmias. 10.17.2019: Patient had been started on milrinone for the suspicion of cardiomyopathy however mixed venous gases were acceptable and this was disc ontinued. He has had no dysrhythmias. She is weaning on Levophed at this time and this appears to be related to the amount of sedation the patient requires to keep her less agitated. 10.16.2019: Cardiology has performed a virtual consultation and are in agreement with our as sessmdedra. She had already been started on heparin aspirin and statin therapy and that is their recommendation as well. She is still on Levophed. Reason for ICU Addmission:: Acute hypoxic respiratory failure - Medications: Medications reviewed and adjusted accordingly: Yes Vasopressors:: None Sedation:: None Physical Exam Vital Signs: Temp Pulse Resp BP Pulse Ox 99.9 F 130 H 16 140/70 H 98 10/19/19 07:36 10/19/19 07:36 10/19/19 07:36 10/19/19 07:36 10/19/19 07:36 Intake & Output 10/18/19 10/19/19 10/20/19 06:59 06:59 06:59 Intake Total 2775 1161 Output Total 1410 4620 1300 Balance 1365 -3459 -1300 Weight 57.3 kg 50.9 kg Weight/Height Weight 50.9 kg Height 5 ft 1 in General appearance: PRESENT: no acute distress, disheveled, thin Exam: Nonintubated chronically ill-appearing 54-year-old white female no active distress awake alert oriented x3 Head exam: PRESENT: atraumatic, normocephalic Eye exam: PRESENT: conjunctiva pink. ABSENT: conjunctival injection, nystagmus, scleral icterus Mouth exam: PRESENT: moist, neck supple Teeth exam: PRESENT: edentulous Neck exam: ABSENT: carotid bruit, JVD, lymphadenopathy, thyromegaly, tracheal deviation Respiratory exam: PRESENT: clear to auscultation lloyd, unlabored. ABSENT: accessory muscle use, rales, rhonchi, tachypnea, wheezes Cardiovascular exam: PRESENT: RRR, +S1, +S2, tachycardia. ABSENT: gallop, rubs Pulses: PRESENT: +2 pedal pulses bilateral Vascular exam: PRESENT: normal capillary refill. ABSENT: pallor GI/Abdominal exam: PRESENT: normal bowel sounds, soft. ABSENT: ascites, diste nded, guarding, mass, organolmegaly, rebound, tenderness Rectal exam: PRESENT: deferred Gentrourinary exam: PRESENT: indwelling catheter Extremities exam: PRESENT: +1 edema Musculoskeletal exam: ABSENT: deformity, dislocation Neurological exam: PRESENT: alert, awake, oriented to person, oriented to time, oriented to situation, CN II-XII grossly intact - Patient is blind.. ABSENT: motor sensory deficit Psychiatric exam: PRESENT: anxious Skin exam: PRESENT: dry, intact, normal color, warm. ABSENT: cyanosis, mottled, rash Tubes/Lines: PRESENT: Central Line, Arterial Catheter, Other - Estrada type urinary catheter Laboratory/Radiographs Laboratory Results: 10/19/19 04:55 10/19/19 04:55 10/18/19 10/19/19 10/19/19 19:00 04:55 04:55 WBC 14.4 H RBC 3.41 L Hgb 11.2 L Hct 32.2 L MCV 94 MCH 32.8 MCHC 34.8 RDW 12.7 Plt Count 169 Seg Neutrophils % 75.9 Carbonic Acid 1.29 HCO3/H2CO3 Ratio 24:1 ABG pH 7.49 H ABG pCO2 42.8 ABG pO2 71.6 L ABG HCO3 31.7 H ABG O2 Saturation 95.4 ABG Base Excess 7.6 FiO2 30% Sodium 141.7 Potassium 3.5 L D Chloride 99 Carbon Dioxide 36 H Anion Gap 7 BUN 18 Creatinine 0.76 Est GFR ( Amer) > 60 Glucose 117 H Calcium 8.9 Phosphorus 3.3 Magnesium 1.8 10/15/19 10/15/19 10/15/19 02:20 06:30 12:30 Creatine Kinase CK-MB (CK-2) Troponin I 0.363 1.540 1.930 NT-Pro-B Natriuret Pep 193 H 10/15/19 10/15/19 10/15/19 18:17 21:15 21:15 Creatine Kinase 186 H CK-MB (CK-2) 15.30 H Troponin I 2.170 NT-Pro-B Natriuret Pep 4080 H 10/16/19 10/17/19 10/17/19 04:29 02:53 10:15 Creatine Kinase CK-MB (CK-2) 7.07 H Troponin I 2.140 0.811 0.668 NT-Pro-B Natriuret Pep 5830 H Impressions: Chest X-Ray 10/18/19 06:00 IMPRESSION: No acute findings visualized in the chest. All labs, radiographs, diagnostic studies and EKGs were personally reviewed: Yes In addition, reports of radiographic and diagnostic studies were read: Yes Assessment and Plan - Diagnosis (1) Sepsis without septic shock Is this a current diagnosis for this admission?: Yes (2) Elevated troponin I measurement Is this a current diagnosis for this admission?: Yes (3) Suspected COVID-19 virus infection Is this a current diagnosis for this admission?: Yes (4) Hypotension (arterial) Is this a current diagnosis for this admission?: Yes (6) Acute exacerbation of emphysema Is this a current diagnosis for this admission?: Yes Plan Summary: 10.19.2019: Respiratory: Patient's respiratory status has improved and from intensive purposes has an exacerbation of COPD with a possible viral pneumonitis. She is SARS, 2-CoViD19 negative The plan will be to be weaning steroids. We reduce the Solu-Medrol to 30 every 12 and she should go through a slow wean. She has been started on beta-nilsa therapy for her heart and reports state fabian t beta-nilsa therapy is not contraindicated in her situation. She will need a CT scan for evaluation for fibrosis before discharge. Started beta agonist therapy via [facility] as well as parasympathetic agonist. Infectious: Continue azithromycin for 2 more days. I have discontinued cefepime and vancomycin given her clear chest x-ray and no other compelling need. Cardiac: Patient had what appears to be an NSTEMI although the small troponin leak may have been related to her respiratory illness and heart strain with type II pathophysiology. She had chest pain this morning but appears to be all musculoskeletal related. EKG shows no ST segment changes and in fact is improved from her original presentation. Heparin has been discontinued and she has been started on Lovenox prophylaxis as well as aspirin, statin therapy, beta-nilsa and DREW inhibitor therapy. In review of research regarding DREW inhibitors in the face of SARS, 2-CoViD19, appears to be a benefit to its use of started her on lisinopril twice daily. She appears to have reduced ejection fraction and have started Lasix. Hematologic: No active measures. Platelets have decreased but not more than 50%. We will need to keep a close eye on this and discontinue therapy. The elevation of platelets at admission may be related to the acute process as well as delusional effect from volume given. White blood cell count is elevated and is reflective of steroid use. Endocrine: Quiescent at this time with no active issues. Continue to monitor supportively Renal: Quiescent at this time with no active issues. Continue to monitor supportively. Watch renal function with diuretic Metabolic: Had hypokalemia this morning and was supplemented orally. Alimentary: Quiescent at this time with no active issues. Continue to monitor supportively Neurologic: Patient has a significant anxiety component. She is on Neurontin fo r pain well as anti-depressive medications. She is legally blind and this is been an ongoing issue for her comfort. She has improved from an agitation standpoint Lines/Tubes: Central lines and Estrada to be removed today Other: Patient is suitable for transition to stepdown. Will need monitoring while on beta-nilsa therapy. Will be transition to the hospitalist service, Valerie Mckinnon NP 10.18.2019: The patient has had no hemodynamic compromise with the troponin elevation. Troponins are now improving. She is on medical management for her disease and we will start the process of DREW and beta-nilsa once we can be assured her blood pressure is stable. Today we will begin diuresis and plan for SBT with liberation from ventilator. Have started Precedex protocol anticipation to liberate later this afternoon. Her hypotension may be a manifestation of the need for excessive amount of propofol and given the fact that her chest x-ray is improved will discontinue antibiotics in 24 hours. Do not have the comfort of knowing a procalcitonin level in a timely fashion to be able to utilize this for de-escalation of therapy. We will give 1 dose of Lasix in an attempt to improve her chances of liberation. Continuing to wean Sinequan 10.17.2019: Patient is known SARS, 2-CoViD19 negative and we will begin the process of weaning as her condition stabilizes. Biggest issue with this patient will be her sedation. She is extremely anxious individual at baseline. We will continue heparin until there is improvement in her troponin and will recheck EKG in the morning for follow-up. Now that she is SARS, 2-CoViD19 negative she may be a candidate for cardiac evaluation sooner than later. Continue supportive care Continue steroids I have increased her Neurontin to assist with control of agitation and any possible seizures that she may have had in the past. Continue statin and aspirin therapy. 10.16.2019: I am concerned about this patient's coronary status. Had a lengthy discussion with Dr. Miller who was in the ICU and performed a virtual consult secondary to SARS, 2-CoViD19. I performed the care ultrasound and basic echo at bedside. Does have B-lines and pleural thickening. She remains hypotensive but her IVC is filled. Have sent mixed venous gas for evaluation of function. On the basic echo there is evidence of lateral wall regional motion abnormality and septal wall seen best on parasternal short axis view. The EF appears to be approximately 38 to 45% and is not severe enough to explain her hypotension. More formal echo has been ordered. She does have EKG changes that I personally evaluated in the lateral leads which prompted the call to cardiology. They do agree. Originally we were going to treat conservatively but given the echo findings and the persistent hypotension and concern that the hypotension may also be related to a cardiogenic source in addition to a possible sepsis origin. Will broaden antibiotics as well. Unfortunately we are unable to obtain timely procalcitonin's to be able to adjudicate or de-escalate therapy. We are concerned that she has SARS, 2-CoViD19 but her inflammatory parameters are not severe. Given her cardiac issues we have not started her on Plaquenil and would not unless we had positive confirmation. Her hypoxia is not severe and we have not had to escalate ventilator therapy. Her troponins are elevated which may be automobile rental representative of a cardiac dysfunction or lung. There may be some degree of pulmonary hypertension however right ventricular shunt appears intact. Again will follow mixed venous gas. I spoke again with Dr. Miller to determine whether this patient may need a more timely cardiac catheterization. We are awaiting notification from [facility] to determine whether it may be in her best interest to have a cardiac catheterization. Currently all of the local hospitals have pandemic based capacity issues. Given the fact that she is not in extremis they are suggesting continued conservative care unless she worsens. This is certainly reasonable given her relatively stable status. We will follow lactic acid and determine if there is any worsening in her condition and if so we will need to reconsider. As it stands now the hospital at [facility] is considering the possibility of having her transferred there in case she worsens. We will continue to monitor her care. They have assured us that they will be in contact with us as well. As far as her sedation we have changed her to Dilaudid basal rate and have had to give her Ativan as well. No evidence to support any serotonin syndrome but will need to continue to watch this. Her medications have been started as of yesterday. We will wean her Sinequan and have decreased the dose to 5 mg. She does not have a QRS prolongation and her QT C is acceptable. Critical Time Critical Time (minutes): 0 - [id number] Level of Care: TELE -: 1. The care of a critical patient is a dynamic process. This note is a automobile rental representative synopsis but static in nature. The timeframe for treatments given in order is not necessarily the actual time these treatments may have been done. 2. This patient requires critical care secondary to ongoing requirements for therapy not offered or safe outside the critical care environment. Transfer to a lower level of care will result in altered life or limb morbidity and mortality. 3. Multidisciplinary rounds completed. 4. ABCDE bundle addressed.
--- NOTE | 2019-10-19 12:34 | Progress Note ---
Provider Note Provider Note: The patient is a 54-year-old female with a past medical history significant for COPD, anxiety, tobacco dependence with continuous use, who was admitted to the ICU secondary to acute respiratory failure with hypoxia. The patient was emergently intubated by EMS prior to transport to the emergency department. Fortunately, she self extubated and was reintubated 10/15/2019. 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 She is now been downgraded to telemetry and transfer to the hospitalist service for continued care. The patient was briefly seen on morning rounds. She is alert and oriented x4; slightly tremulous, very tearful and anxious. She denies current chest pain, palpitations, dyspnea or cough. Overnight events, vital signs, recent laboratory evaluations and radiology reports, and orders are reviewed. Agree with the plan of care as established by the previous provider as she downgraded to telemetry services. I did help the patient call her to speak to him over the phone but did not personally provide him an update at this time. We will continue to trend troponins, monitor on telemetry, echocardiogram pending. We will reach out to Dr. Lowery tomorrow to discuss whether the patient continues to need inpatient cardiac catheterization or would be appropriate for outpatient follow-up. COVID19 Negative.
[2019-10-19] MEDS ORDERED: FUROSEMIDE 20 MG TABLET PO SCH (14:00)
[2019-10-19] MEDS: POTASSIUM CHLORIDE 20 MEQ PACKET PO SCH (14:09)
[2019-10-19] MEDS: ENOXAPARIN SODIUM INJ 40 MG/0.4 ML DISP.SYRIN SUBCUT SCH (14:09)
[2019-10-19] MEDS: LISINOPRIL 5 MG TABLET PO SCH ×2 (14:10→21:31)
[2019-10-19] MEDS ORDERED: HYDROXYZINE PAMOATE 25 MG CAPSULE PO PRN (17:45)
--- NOTE | 2019-10-19 18:06 | PDOC PROGRESS REPORT ---
Subjective Progress Note for:: 10/19/19 Subjective:: The patient is a 54-year-old female with a past medical history significant for COPD, anxiety, tobacco dependence with continuous use, who was admitted to the ICU secondary to acute respiratory failure with hypoxia. The patient was emergently intubated by EMS prior to transport to the emergency department. Fortunately, she self extubated and was reintubated 10/15/2019. She was successfully extubated early childhood specialist (approximately 3 AM) on 10/19/2019. She is now been downgraded to telemetry and transfer to the hospitalist service for continued care. The patient was seen on morning rounds. She is alert and oriented x4; slightly tremulous, very tearful and anxious. She denies current chest pain, palpitations, dyspnea or cough. She has no specific questions or concerns at this time. No concerns per nursing. Reason For Visit: ACUTE ON CHRONIC RESPIRATORY FAILURE, AECOPD Physical Exam Vital Signs: Temp Pulse Resp BP Pulse Ox 98.9 F 103 H 22 H 124/85 98 10/19/19 16:25 10/19/19 16:25 10/19/19 16:25 10/19/19 16:25 10/19/19 16:25 Intake & Output 10/18/19 10/19/19 10/20/19 06:59 06:59 06:59 Intake Total 2775 1161 250 Output Total 1410 4620 1300 Balance 1365 -3459 -1050 Weight 57.3 kg 50.9 kg General appearance: PRESENT: no acute distress, cooperative, disheveled, thin, well-developed, well-nourished Head exam: PRESENT: atraumatic, normocephalic Eye exam: PRESENT: conjunctiva pink, EOMI, PERRLA. ABSENT: scleral icterus Ear exam: PRESENT: normal external ear exam Mouth exam: PRESENT: moist, tongue midline Teeth exam: PRESENT: poor dentation Respiratory exam: PRESENT: clear to auscultation lloyd, symmetrical, unlabored, other - Supplemental oxygen via nasal cannula. ABSENT: rales, rhonchi, wheezes Cardiovascular exam: PRESENT: RRR, tachycardia. ABSENT: diastolic murmur, rubs, systolic murmur Vascular exam: PRESENT: normal capillary refill Extremities exam: PRESENT: full ROM. ABSENT: calf tenderness, clubbing, pedal edema Neurological exam: PRESENT: alert, awake, oriented to person, oriented to place, oriented to time, oriented to situation, CN II-XII grossly intact. ABSENT: motor sensory deficit Psychiatric exam: PRESENT: anxious, appropriate affect. ABSENT: homicidal ideation, suicidal ideation Skin exam: PRESENT: dry, intact, warm. ABSENT: cyanosis, rash Results Laboratory Results: 10/19/19 04:55 10/19/19 04:55 10/18/19 10/19/19 10/19/19 19:00 04:55 04:55 WBC 14.4 H RBC 3.41 L Hgb 11.2 L Hct 32.2 L MCV 94 MCH 32.8 MCHC 34.8 RDW 12.7 Plt Count 169 Seg Neutrophils % 75.9 Carbonic Acid 1.29 HCO3/H2CO3 Ratio 24:1 ABG pH 7.49 H ABG pCO2 42.8 ABG pO2 71.6 L ABG HCO3 31.7 H ABG O2 Saturation 95.4 ABG Base Excess 7.6 FiO2 30% Sodium 141.7 Potassium 3.5 L D Chloride 99 Carbon Dioxide 36 H Anion Gap 7 BUN 18 Creatinine 0.76 Est GFR ( Amer) > 60 Glucose 117 H Calcium 8.9 Phosphorus 3.3 Magnesium 1.8 10/15/19 10/15/19 10/15/19 02:20 06:30 12:30 Creatine Kinase CK-MB (CK-2) Troponin I 0.363 1.540 1.930 NT-Pro-B Natriuret Pep 193 H 10/15/19 10/15/19 10/15/19 18:17 21:15 21:15 Creatine Kinase 186 H CK-MB (CK-2) 15.30 H Troponin I 2.170 NT-Pro-B Natriuret Pep 4080 H 10/16/19 10/17/19 10/17/19 04:29 02:53 10:15 Creatine Kinase CK-MB (CK-2) 7.07 H Troponin I 2.140 0.811 0.668 NT-Pro-B Natriuret Pep 5830 H 10/19/19 09:50 Creatine Kinase CK-MB (CK-2) Troponin I 0.230 NT-Pro-B Natriuret Pep Impressions: Chest X-Ray 10/18/19 06:00 IMPRESSION: No acute findings visualized in the chest. Assessment and Plan - Diagnosis (1) Acute exacerbation of emphysema Is this a current diagnosis for this admission?: Yes Plan: Improved; patient is now extubated and maintaining oxygen saturations on supplemental oxygen via nasal cannula. She denies dyspnea and cough. Lung sounds are diminished but clear. She is downgraded from the ICU today to the telemetry floor. Will provide supplemental oxygen as needed to maintain saturations greater than 89%. Continue scheduled albuterol HFA Continue IV Solu-Medrol; begin weaning tomorrow. Mucinex twice daily. Robitussin as needed. Pulmonary toilet is encouraged with incentive spirometer, flutter valve, and early ambulation. (2) Elevated troponin I measurement Is this a current diagnosis for this admission?: Yes Plan: Unclear if end STEMI versus demand mismatch ischemia. Continue monitor on continuous cardiac telemetry. Cardiology is consulted. Will need to determine need for inpatient versus outpatient cardiac cath and make necessary referral prior to discharge. Echocardiogram is pending. Troponins are trending down. We will continue to monitor. Received >48 IV heparin drip. Now on Lovenox DVT prophylaxis dose. Continues metoprolol, lisinopril, daily aspirin, and statin therapy. (3) Acute respiratory failure with hypercapnia Is this a current diagnosis for this admission?: Yes Plan: Secondary to #1 and 2. COVID 19 negative Significantly improved; patient is now extubated and maintaining oxygen saturations on supplemental oxygen via nasal cannula. Remaining evaluation and management as above. (4) Hypotension (arterial) Is this a current diagnosis for this admission?: Yes Plan: Resolved. (5) Anxiety Is this a current diagnosis for this admission?: Yes Plan: Start BuSpar twice daily. Vistaril prn. Continue Prozac and trazodone. Continue weaning doxepin. Avoid diazepam. Consider mental health evaluation. (6) Sepsis without septic shock Is this a current diagnosis for this admission?: Yes Plan: Resolved. (7) Self extubation Is this a current diagnosis for this admission?: Yes - Time Time Spent with patient: 25-34 minutes Medications reviewed and adjusted accordingly: Yes Anticipated discharge: Home Within: within 72 hours
[2019-10-19] MEDS: GUAIFENESIN 600 MG TABLET.SA PO SCH (21:30)
[2019-10-19] MEDS: BUSPIRONE HCL 10 MG TABLET PO SCH (21:32)
[2019-10-19] MEDS: GABAPENTIN 300 MG CAPSULE NG SCH (21:32)
[2019-10-19] MEDS: FUROSEMIDE 20 MG TABLET PO SCH (21:32)
[2019-10-19] MEDS: ATORVASTATIN CALCIUM 40 MG TABLET NG SCH (21:32)
[2019-10-19] MEDS: DOXEPIN HCL 10 MG CAPSULE NG SCH (21:43)
[2019-10-20] MEDS: ALBUTEROL SULFATE HFA (90 MCG/PUFF) 200 PUFF/8.5 GM MDI IH SCH ×6 (02:35→21:12)
[2019-10-20] MEDS: GABAPENTIN 300 MG CAPSULE NG SCH ×3 (06:27→21:12)
[2019-10-20 06:36] LABS: HEMOGLOBIN 11.9 g/dL (12.0-15.5); MEAN CORPUSCULAR HEMOGLOBIN 32.9 pg (27.0-33.4); MEAN CORPUSCULAR VOLUME 94 fl (80-97); PLATELET COUNT 174 10^3/uL (150-450); RED BLOOD COUNT 3.61 10^6/uL (3.72-5.28); RED CELL DISTRIBUTION WIDTH 12.8 % (11.5-14.0)
[2019-10-20 06:50] LABS: ANION GAP 5 (5-19); BLOOD UREA NITROGEN 21 mg/dL (7-20); CALCIUM 9.1 mg/dL (8.4-10.2); CARBON DIOXIDE 35 mmol/L (22-30); CHLORIDE 100 mmol/L (98-107); GLUCOSE 102 mg/dL (75-110)
[2019-10-20 06:57] LABS: POTASSIUM 2.9 mmol/L (3.6-5.0)
[2019-10-20] MEDS ORDERED: POTASSIUM CHLORIDE 10 MEQ TABLET.ER PO ONE ×2 (08:02→10:30)
[2019-10-20] MEDS: ENOXAPARIN SODIUM INJ 40 MG/0.4 ML DISP.SYRIN SUBCUT SCH (09:36)
[2019-10-20] MEDS: GUAIFENESIN 600 MG TABLET.SA PO SCH ×2 (09:36→21:11)
[2019-10-20] MEDS: BUSPIRONE HCL 10 MG TABLET PO SCH ×2 (09:37→21:12)
[2019-10-20] MEDS: FLUOXETINE HCL 20 MG CAPSULE NG SCH (09:37)
[2019-10-20] MEDS: METHYLPREDNISOLONE INJ 40 MG/1 ML SDV IV SCH (09:37)
[2019-10-20] MEDS: LISINOPRIL 5 MG TABLET PO SCH ×2 (09:37→21:12)
[2019-10-20] MEDS: ASPIRIN 81 MG TABLET, CHEWABLE NG SCH (09:37)
[2019-10-20] MEDS: METOPROLOL TARTRATE 25 MG TABLET PO SCH ×2 (09:37→21:12)
[2019-10-20] MEDS: FUROSEMIDE 20 MG TABLET PO SCH ×2 (09:37→21:11)
[2019-10-20] MEDS: POTASSIUM CHLORIDE 20 MEQ PACKET PO SCH (09:37)
[2019-10-20] MEDS: POTASSI CL 20 MEQ/50 ML RIDER 20 MEQ/50 ML RTUPB IV SCH ×2 (09:44→11:58)
[2019-10-20] MEDS ORDERED: AZITHROMYCIN 250 MG TABLET PO SCH (10:00)
[2019-10-20 10:46] LABS: AMORPHOUS SEDIMENT,URINE TRACE /HPF; APPEARANCE,URINE CLOUDY; BILIRUBIN,URINE NEGATIVE (NEGATIVE); COLOR,URINE YELLOW; GLUCOSE, URINE NEGATIVE (NEGATIVE); KETONES,URINE 20 mg/dL (NEGATIVE); LEUKOCYTE ESTERASE,URINE NEGATIVE (NEGATIVE); NITRITE,URINE NEGATIVE (NEGATIVE); PROTEIN,URINE 100 mg/dL (NEGATIVE); URINE SPECIFIC GRAVITY 1.021; UROBILINOGEN,URINE NEGATIVE mg/dL (<2.0)
[2019-10-20 15:38] LABS: ANION GAP 7 (5-19); BLOOD UREA NITROGEN 21 mg/dL (7-20); CARBON DIOXIDE 27 mmol/L (22-30); CHLORIDE 105 mmol/L (98-107); GLUCOSE 140 mg/dL (75-110)
[2019-10-20 16:10] LABS: POTASSIUM 4.6 mmol/L (3.6-5.0)
--- NOTE | 2019-10-20 16:52 | PDOC PROGRESS REPORT ---
Subjective Progress Note for:: 10/20/19 Subjective:: The patient is a 54-year-old female with a past medical history significant for COPD, anxiety, tobacco dependence with continuous use, who was admitted to the ICU secondary to acute respiratory failure with hypoxia. The patient was emergently intubated by EMS prior to transport to the emergency department. Fortunately, she self extubated and was reintubated 10/15/2019. 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 She is now been downgraded to telemetry and transfer to the hospitalist service for continued care. The patient was seen on morning rounds. She is A&Ox4; appears in good health and significantly improved from yesterday. She is found sitting up to the edge of her bed completing her own ADLs; has just ambulated with PT. She reports that she is feeling much better and has no complaints at this time. Hopeful to d/c home soon. She denies fever, chest pain, palpitations, dyspnea, orthopnea, cough, abd pain, nausea and vomiting. She has no questions or concerns at this time. No concerns per nursing. Reason For Visit: ACUTE ON CHRONIC RESPIRATORY FAILURE, AECOPD Physical Exam Vital Signs: Temp Pulse Resp BP Pulse Ox 98.8 F 90 18 116/77 96 10/20/19 15:38 10/20/19 15:38 10/20/19 15:38 10/20/19 15:38 10/20/19 15:38 Intake & Output 10/19/19 10/20/19 10/21/19 06:59 06:59 06:59 Intake Total 1161 510 290 Output Total 4665 1620 550 Balance -3459 -1115 -260 Weight 50.9 kg 65.2 kg 65.2 kg General appearance: PRESENT: no acute distress, cooperative, thin, well- developed, well-nourished Head exam: PRESENT: atraumatic, normocephalic Eye exam: PRESENT: conjunctiva pink, EOMI, PERRLA. ABSENT: scleral icterus Mouth exam: PRESENT: moist, tongue midline Teeth exam: PRESENT: edentulous - dentures Respiratory exam: PRESENT: clear to auscultation lloyd, symmetrical, unlabored, other - room air. ABSENT: rales, rhonchi, wheezes Cardiovascular exam: PRESENT: RRR. ABSENT: diastolic murmur, rubs, systolic murmur Pulses: PRESENT: normal dorsalis pedis pul Vascular exam: PRESENT: normal capillary refill GI/Abdominal exam: PRESENT: normal bowel sounds, soft. ABSENT: distended, guarding, mass, organolmegaly, rebound, tenderness Rectal exam: PRESENT: deferred Extremities exam: PRESENT: full ROM. ABSENT: calf tenderness, clubbing, pedal edema Neurological exam: PRESENT: alert, awake, oriented to person, oriented to place, oriented to time, oriented to situation, CN II-XII grossly intact. ABSENT: motor sensory deficit Psychiatric exam: PRESENT: appropriate affect, normal mood. ABSENT: homicidal ideation, suicidal ideation Skin exam: PRESENT: dry, intact, warm. ABSENT: cyanosis, rash Results Laboratory Results: 10/20/19 05:35 10/20/19 15:25 10/20/19 10/20/19 10/20/19 05:35 05:35 10:30 WBC 15.0 H RBC 3.61 L Hgb 11.9 L Hct 34.0 L MCV 94 MCH 32.9 MCHC 35.0 RDW 12.8 Plt Count 174 Sodium 139.8 Potassium 2.9 L* Chloride 100 Carbon Dioxide 35 H Anion Gap 5 BUN 21 H Creatinine 0.64 Est GFR ( Amer) > 60 Glucose 102 Calcium 9.1 Urine Color YELLOW Urine Appearance CLOUDY Urine pH 8.0 Ur Specific [place] 1.021 Urine Protein 100 H Urine Glucose (UA) NEGATIVE Urine Ketones 20 H Urine Blood NEGATIVE Urine Nitrite NEGATIVE Ur Leukocyte Esterase NEGATIVE Urine WBC (Auto) 4 Urine RBC (Auto) 3 10/20/19 15:25 WBC RBC Hgb Hct MCV MCH MCHC RDW Plt Count Sodium 138.6 Potassium 4.6 D Chloride 105 Carbon Dioxide 27 Anion Gap 7 BUN 21 H Creatinine 0.62 Est GFR ( Amer) > 60 Glucose 140 H Calcium 9.0 Urine Color Urine Appearance Urine pH Ur Specific [place] Urine Protein Urine Glucose (UA) Urine Ketones Urine Blood Urine Nitrite Ur Leukocyte Esterase Urine WBC (Auto) Urine RBC (Auto) 10/18/19 11:48 Bronchial Washings Gram Stain - Final 10/18/19 11:48 Bronchial Washings Bronchial Washings Culture - Final NO GROWTH 2 DAYS 10/15/19 03:15 Blood Blood Culture - Final NO GROWTH IN 5 DAYS 10/15/19 02:20 Blood Blood Culture - Final NO GROWTH IN 5 DAYS 10/15/19 10/15/19 10/15/19 02:20 06:30 12:30 Creatine Kinase CK-MB (CK-2) Troponin I 0.363 1.540 1.930 NT-Pro-B Natriuret Pep 193 H 10/15/19 10/15/19 10/15/19 18:17 21:15 21:15 Creatine Kinase 186 H CK-MB (CK-2) 15.30 H Troponin I 2.170 NT-Pro-B Natriuret Pep 4080 H 10/16/19 10/17/19 10/17/19 04:29 02:53 10:15 Creatine Kinase CK-MB (CK-2) 7.07 H Troponin I 2.140 0.811 0.668 NT-Pro-B Natriuret Pep 5830 H 10/19/19 10/19/19 09:50 22:30 Creatine Kinase CK-MB (CK-2) Troponin I 0.230 0.166 NT-Pro-B Natriuret Pep Impressions: Chest X-Ray 10/18/19 06:00 IMPRESSION: No acute findings visualized in the chest. Assessment and Plan - Diagnosis (1) Acute exacerbation of emphysema Is this a current diagnosis for this admission?: Yes Plan: Improved; patient is now extubated and maintaining oxygen on room air. Will provide supplemental oxygen as needed to maintain saturations greater than 89%. Continue scheduled albuterol HFA Transition to PO prednisone today. Mucinex twice daily. Robitussin as needed. Pulmonary toilet is encouraged with incentive spirometer, flutter valve, and early ambulation. (2) Elevated troponin I measurement Is this a current diagnosis for this admission?: Yes Plan: Unclear if end STEMI versus demand mismatch ischemia. Continue monitor on continuous cardiac telemetry. Cardiology is consulted. Will need to determine need for inpatient versus ou tpatient cardiac cath and make necessary referral prior to discharge. Echocardiogram completed; formal report pending. Initial review shows LVEF of approximately 30%. Therefore, have reconsulted cardiology services; patient may require LifeVest prior to discharge. Troponins are trending down. No longer following. Received >48 IV heparin drip. Now on Lovenox DVT prophylaxis dose. Continues metoprolol, lisinopril, daily aspirin, and statin therapy. (3) Acute respiratory failure with hypercapnia Is this a current diagnosis for this admission?: Yes Plan: Secondary to #1 and 2. COVID 19 negative Significantly improved; patient is now extubated and maintaining oxygen saturations on room air. Remaining evaluation and management as above. (4) Hypotension (arterial) Is this a current diagnosis for this admission?: Yes Plan: Resolved. (5) Anxiety Is this a current diagnosis for this admission?: Yes Plan: Continue BuSpar twice daily. Vistaril prn. Continue Prozac and trazodone. Continue weaning doxepin. Avoid diazepam. Consider mental health evaluation. (6) Sepsis without septic shock Is this a current diagnosis for this admission?: Yes Plan: Resolved. (7) Self extubation Is this a current diagnosis for this admission?: Yes (8) Heart failure with reduced ejection fraction Is this a current diagnosis for this admission?: Yes Plan: Echocardiogram preliminary results show LVEF approximately 32%. Continue lisinopril, metoprolol, furosemide, aspirin and statin therapy. Consider spironolactone. Cardiology is consulted. - Time Time Spent with patient: 25-34 minutes Medications reviewed and adjusted accordingly: Yes Anticipated discharge: Home Within: within 24 hours - Pending cardiology evaluation recommendations.
[2019-10-20] MEDS: ATORVASTATIN CALCIUM 40 MG TABLET NG SCH (21:12)
[2019-10-21] MEDS: ALBUTEROL SULFATE HFA (90 MCG/PUFF) 200 PUFF/8.5 GM MDI IH SCH ×6 (01:30→22:30)
[2019-10-21] MEDS ORDERED: LORAZEPAM INJ 2 MG/1 ML VIAL ONE (02:19)
[2019-10-21] MEDS ORDERED: LORAZEPAM INJ 2 MG/1 ML VIAL IV PRN (02:34)
[2019-10-21] MEDS: GABAPENTIN 300 MG CAPSULE NG SCH ×3 (06:11→22:03)
[2019-10-21 06:30] LABS: HEMOGLOBIN 12.1 g/dL (12.0-15.5); MEAN CORPUSCULAR HEMOGLOBIN 32.6 pg (27.0-33.4); MEAN CORPUSCULAR HGB CONC 34.5 g/dL (32.0-36.0); MEAN CORPUSCULAR VOLUME 95 fl (80-97); PLATELET COUNT 191 10^3/uL (150-450); RED BLOOD COUNT 3.71 10^6/uL (3.72-5.28); RED CELL DISTRIBUTION WIDTH 12.9 % (11.5-14.0); WHITE BLOOD COUNT 15.1 10^3/uL (4.0-10.5)
[2019-10-21 06:43] LABS: CARBON DIOXIDE 28 mmol/L (22-30); CHLORIDE 104 mmol/L (98-107)
[2019-10-21 06:58] LABS: ANION GAP 7 (5-19); BLOOD UREA NITROGEN 23 mg/dL (7-20); GLUCOSE 100 mg/dL (75-110)
[2019-10-21 07:02] LABS: POTASSIUM 3.6 mmol/L (3.6-5.0)
[2019-10-21] MEDS: POTASSIUM CHLORIDE 20 MEQ PACKET PO SCH (09:50)
[2019-10-21] MEDS: LISINOPRIL 5 MG TABLET PO SCH ×2 (09:50→22:03)
[2019-10-21] MEDS: FUROSEMIDE 20 MG TABLET PO SCH (09:51)
[2019-10-21] MEDS: BUSPIRONE HCL 10 MG TABLET PO SCH ×2 (09:51→22:04)
[2019-10-21] MEDS: METOPROLOL TARTRATE 25 MG TABLET PO SCH ×2 (09:51→22:02)
[2019-10-21] MEDS: FLUOXETINE HCL 20 MG CAPSULE NG SCH (09:51)
[2019-10-21] MEDS: ASPIRIN 81 MG TABLET, CHEWABLE NG SCH (09:51)
[2019-10-21] MEDS: ENOXAPARIN SODIUM INJ 40 MG/0.4 ML DISP.SYRIN SUBCUT SCH (09:51)
[2019-10-21] MEDS: GUAIFENESIN 600 MG TABLET.SA PO SCH ×2 (09:51→22:03)
[2019-10-21] MEDS ORDERED: PREDNISONE 20 MG TABLET PO SCH (10:00)
--- NOTE | 2019-10-21 12:47 | XCELERA REPORT ---
[address] [address] Transthoracic Echocardiogram Report Name: MARY OLEARY Age: 54 yrs Gender: Female : 1965 Patient Status: Inpatient Patient Location: [address] [place] [address] Study Date: 10/20/2019 10:59 AM History: NSTEMI Height: 61 in Weight: 126 lb BSA: 1.6 m2 Procedure: A complete two-dimensional transthoracic echocardiogram was performed (2D, M-mode, spectral and color flow Doppler). The study was technically difficult with many images being suboptimal in quality. Images were not obtained from all of the standard acoustic windows due to the limited scope of the study. Images from the parasternal window were difficult to obtain and are suboptimal in quality. The apical views were difficult to obtain and are suboptimal in quality. Reason For Study: nstemi Previous Evaluation: No previous studies were available. History: Shortness of breath. NSTEMI. Ordering Physician: OVIDIO CARNEY Performed By: Casey Arevalo Interpretation Summary Left ventricular systolic function is moderately reduced. The Ejection Fraction estimate is 30-35% The right ventricle is normal in size and function. There is a mild amount of mitral regurgitation There is no aortic valve stenosis There is a trace amount of tricuspid regurgitation There is no pericardial effusion. The Ejection Fraction estimate is 30-35% MMode/2D Measurements & Calculations RVDd: 1.5 cm LVIDd: 4.0 cm FS: 15.0 % Ao root diam: 1.9 cm IVSd: 0.82 cm LVIDs: 3.4 cm EDV(Teich): 71.0 ml Ao root area: 2.9 cm2 LVPWd: 0.78 cm ESV(Teich): 48.2 ml LA dimension: 2.7 cm EF(Teich): 32.2 % Doppler Measurements & Calculations MV E max issa: MV P1/2t max issa: Ao V2 max: LV V1 max P.3 cm/sec 94.1 cm/sec 103.8 cm/sec 2.2 mmHg MV A max issa: MV P1/2t: 41.7 msec Ao max P.3 mmHg LV V1 max: 76.0 cm/sec MVA(P1/2t): 5.3 cm2 74.0 cm/sec MV E/A: 1.3 MV dec slope: 661.3 cm/sec2 MV dec time: 0.12 sec PA V2 max: TR max issa: MV P1/2t-pr_phl: 108.0 cm/sec 206.3 cm/sec 41.7 msec PA max P.7 mmHgTR max P.0 mmHg Left Ventricle The left ventricle is mildly dilated. Left ventricular systolic function is moderately reduced. The Ejection Fraction estimate is 30-35%. Doppler measurements suggest pseudonormalized left ventricular relaxation, which is associated with grade II/IV or mild to moderate diastolic dysfunction. There is mild to moderate global hypokinesis of the left ventricle. There is anterior wall severe hypokinesis. There is mid to distal septal wall severe hypokinesis. There is septal wall severe hypokinesis. Right Ventricle The right ventricle is normal in size and function. Mitral Valve There is no mitral annular calcification. There is no evidence of mitral valve prolapse. There is no mitral valve stenosis. There is a mild amount of mitral regurgitation. Aortic Valve The aortic valve is not well visualized secondary to technical limitations. There is no aortic valve stenosis. No aortic regurgitation is present. Tricuspid Valve The tricuspid is normal in structure and function. There is no tricuspid valve prolapse. There is no tricuspid stenosis. There is a trace amount of tricuspid regurgitation. Tricuspid regurgitation jet envelope not well defined to measure RV systolic pressure accurately. Pulmonic Valve The pulmonic valve is not well visualized. There is no pulmonic valvular stenosis. There is a trace amount of pulmonic regurgitation. Great Vessels The aortic root is not well visualized. The inferior vena cava appeared normal and decreased > 50% with respiration (RAP 5-10 mmHg). Effusions There is no pericardial effusion. : OVIDIO CARNEY Anil
--- NOTE | 2019-10-21 13:31 | PDOC PROGRESS REPORT ---
Subjective Progress Note for:: 10/21/19 Subjective:: Patient was seen and examined. She is resting in bed. Feels very comfortable. No chest pain or dyspnea is reported. Reason For Visit: ACUTE ON CHRONIC RESPIRATORY FAILURE, AECOPD Physical Exam Vital Signs: Temp Pulse Resp BP Pulse Ox 98.6 F 95 16 113/81 92 10/21/19 11:14 10/21/19 11:14 10/21/19 11:14 10/21/19 11:14 10/21/19 11:14 Intake & Output 10/20/19 10/21/19 10/22/19 06:59 06:59 06:59 Intake Total 510 1220 Output Total 1625 1125 Balance -1115 95 Weight 65.2 kg 46 kg General appearance: PRESENT: cooperative, thin, well-developed Head exam: PRESENT: atraumatic, normocephalic Eye exam: PRESENT: conjunctiva pink, EOMI Mouth exam: PRESENT: moist Respiratory exam: PRESENT: crackles, prolonged expiratory phas, symmetrical, unlabored Cardiovascular exam: PRESENT: RRR, +S1, +S2 Pulses: PRESENT: normal radial pulses GI/Abdominal exam: PRESENT: soft Rectal exam: PRESENT: deferred Musculoskeletal exam: PRESENT: normal inspection Neurological exam: PRESENT: alert, awake, oriented to person, oriented to place, oriented to time, oriented to situation Psychiatric exam: PRESENT: appropriate affect Skin exam: PRESENT: dry Results Laboratory Results: 10/21/19 05:45 10/21/19 05:45 10/20/19 10/21/19 10/21/19 15:25 05:45 05:45 WBC 15.1 H RBC 3.71 L Hgb 12.1 Hct 35.0 L MCV 95 MCH 32.6 MCHC 34.5 RDW 12.9 Plt Count 191 Sodium 138.6 139.3 Potassium 4.6 D 3.6 D Chloride 105 104 Carbon Dioxide 27 28 Anion Gap 7 7 BUN 21 H 23 H Creatinine 0.62 0.63 Est GFR ( Amer) > 60 > 60 Glucose 140 H 100 Calcium 9.0 9.0 10/18/19 11:48 Bronchial Washings Gram Stain - Final 10/18/19 11:48 Bronchial Washings Bronchial Washings Culture - Final NO GROWTH 2 DAYS 10/15/19 10/15/19 10/15/19 02:20 06:30 12:30 Creatine Kinase CK-MB (CK-2) Troponin I 0.363 1.540 1.930 NT-Pro-B Natriuret Pep 193 H 10/15/19 10/15/19 10/15/19 18:17 21:15 21:15 Creatine Kinase 186 H CK-MB (CK-2) 15.30 H Troponin I 2.170 NT-Pro-B Natriuret Pep 4080 H 10/16/19 10/17/19 10/17/19 04:29 02:53 10:15 Creatine Kinase CK-MB (CK-2) 7.07 H Troponin I 2.140 0.811 0.668 NT-Pro-B Natriuret Pep 5830 H 10/19/19 10/19/19 09:50 22:30 Creatine Kinase CK-MB (CK-2) Troponin I 0.230 0.166 NT-Pro-B Natriuret Pep EKG Comments: Twelve-lead EKG 10/15/2019 independently reviewed by me. Sinus tachycardia 121 bpm, biatrial abnormality, nonspecific T wave abnormalities Twelve-lead EKG 10/19/2019 Independently reviewed by me. Sinus tachycardia 115 bpm, biatrial abnormalities, normal AV conduction Peak troponin II 0.17 on 10/15/2019. Chest x-ray 10/18/2019 No acute findings Transthoracic echocardiogram 10/20/2019 Left ventricular ejection fraction is estimated at 30-35 %. Wall motion abnormality in the LAD distribution. No significant valve lesion No pericardial effusion Impressions: Chest X-Ray 10/18/19 06:00 IMPRESSION: No acute findings visualized in the chest. Assessment & Plan - Diagnosis (1) NSTEMI (non-ST elevated myocardial infarction) Is this a current diagnosis for this admission?: Yes Plan: Non-STEMI with peak troponin greater than 2 with wall motion abnormality and left ventricular dysfunction with ejection fraction 30 to 35% All of the above could be related to a septic insult. Would recommend treating with aspirin 81 mg daily together with clopidogrel 75 mg daily Continue statin Low-dose beta-nilsa Low-dose DREW inhibitor Would recommend reassessment of LV function in about 4-6 weeks. Based on that assessment of myocardial ischemia perhaps with cardiac catheterization should be considered. Patient the present time is asymptomatic with no chest pain or dyspnea. (2) LV dysfunction Is this a current diagnosis for this admission?: Yes Plan: LV dysfunction. Ejection fraction estimated at 35 to 40% This could be related to sepsis. Would recommend medications for dilated cardiomyopathy Would recommend low-dose beta-nilsa Low-dose DREW Could consider spironolactone at low dose Patient appears euvolemic Should consider repeat echocardiogram to reassess LV function in about 4 to 6 weeks or sooner based on clinical course.
--- NOTE | 2019-10-21 14:30 | PDOC PROGRESS REPORT ---
Subjective Progress Note for:: 10/21/19 Subjective:: Patient is resting in bed. She appears comfortable. She did have multiple questions that were answered to her satisfaction. No current complaints. She was seen by cardiology earlier. Reason For Visit: ACUTE ON CHRONIC RESPIRATORY FAILURE, AECOPD Physical Exam Vital Signs: Temp Pulse Resp BP Pulse Ox 98.6 F 95 16 113/81 92 10/21/19 11:14 10/21/19 11:14 10/21/19 11:14 10/21/19 11:14 10/21/19 11:14 Intake & Output 10/20/19 10/21/19 10/22/19 06:59 06:59 06:59 Intake Total 510 1220 Output Total 1625 1125 325 Balance -1115 95 -325 Weight 65.2 kg 46 kg General appearance: PRESENT: no acute distress, cooperative, well-developed Head exam: PRESENT: atraumatic, normocephalic Ear exam: PRESENT: normal external ear exam. ABSENT: bleeding, drainage Mouth exam: PRESENT: moist, tongue midline Neck exam: ABSENT: carotid bruit, JVD, lymphadenopathy Respiratory exam: PRESENT: clear to auscultation lloyd, symmetrical, unlabored. ABSENT: rales, rhonchi, tachypnea, wheezes Cardiovascular exam: PRESENT: RRR, +S1, +S2 GI/Abdominal exam: PRESENT: normal bowel sounds, soft. ABSENT: distended, guarding, tenderness Rectal exam: PRESENT: deferred Gentrourinary exam: PRESENT: indwelling catheter Extremities exam: ABSENT: pedal edema Musculoskeletal exam: PRESENT: ambulatory, normal inspection. ABSENT: deformity Neurological exam: PRESENT: alert, awake, oriented to person, oriented to place, oriented to time, oriented to situation Psychiatric exam: PRESENT: unusual affect. ABSENT: agitated, anxious Focused psych exam: ABSENT: delusional, paranoid, restlessness Skin exam: PRESENT: dry, normal color, warm, other - Ecchymosis on her wrists. ABSENT: rash Results Laboratory Results: 10/21/19 05:45 10/21/19 05:45 10/20/19 10/21/19 10/21/19 15:25 05:45 05:45 WBC 15.1 H RBC 3.71 L Hgb 12.1 Hct 35.0 L MCV 95 MCH 32.6 MCHC 34.5 RDW 12.9 Plt Count 191 Sodium 138.6 139.3 Potassium 4.6 D 3.6 D Chloride 105 104 Carbon Dioxide 27 28 Anion Gap 7 7 BUN 21 H 23 H Creatinine 0.62 0.63 Est GFR ( Amer) > 60 > 60 Glucose 140 H 100 Calcium 9.0 9.0 10/18/19 11:48 Bronchial Washings Gram Stain - Final 10/18/19 11:48 Bronchial Washings Bronchial Washings Culture - Final NO GROWTH 2 DAYS 10/15/19 10/15/19 10/15/19 02:20 06:30 12:30 Creatine Kinase CK-MB (CK-2) Troponin I 0.363 1.540 1.930 NT-Pro-B Natriuret Pep 193 H 10/15/19 10/15/19 10/15/19 18:17 21:15 21:15 Creatine Kinase 186 H CK-MB (CK-2) 15.30 H Troponin I 2.170 NT-Pro-B Natriuret Pep 4080 H 10/16/19 10/17/19 10/17/19 04:29 02:53 10:15 Creatine Kinase CK-MB (CK-2) 7.07 H Troponin I 2.140 0.811 0.668 NT-Pro-B Natriuret Pep 5830 H 10/19/19 10/19/19 09:50 22:30 Creatine Kinase CK-MB (CK-2) Troponin I 0.230 0.166 NT-Pro-B Natriuret Pep Impressions: Chest X-Ray 10/18/19 06:00 IMPRESSION: No acute findings visualized in the chest. Assessment and Plan - Diagnosis (1) NSTEMI (non-ST elevated myocardial infarction) Is this a current diagnosis for this admission?: Yes (2) Acute exacerbation of emphysema Is this a current diagnosis for this admission?: Yes (3) Acute respiratory failure with hypercapnia Is this a current diagnosis for this admission?: Yes Plan: Secondary to #1 and 2. COVID 19 negative Significantly improved; patient is now extubated and maintaining oxygen saturations on room air. Remaining evaluation and management as above. 10/21/2019 Respiratory failure resolved (4) Sepsis Qualifiers: Sepsis type: sepsis due to unspecified organism Sepsis acute organ dysfunction status: without acute organ dysfunction Qualified Code(s): A41.9 - Sepsis, unspecified organism Is this a current diagnosis for this admission?: Yes Plan: 10/21/2019 The patient had negative cultures so no particular organism isolated. She did have hypotension. She did require intubation. She does have reduced ejection fraction with elevated troponins. See separate note below. Sepsis resolved (5) Heart failure with reduced ejection fraction Is this a current diagnosis for this admission?: Yes Plan: Echocardiogram preliminary results show LVEF approximately 32%. Continue lisinopril, metoprolol, furosemide, aspirin and statin therapy. Consider spironolactone. Cardiology is consulted. 10/21/[address] Miller and Dr. Lowery who have seen the patient. Possibly due to non-ST elevated myocardial infarction as the patient does have elevated troponins. Ejection fraction is around 30%. I have added spironolactone and she has already been on lisinopril and metoprolol. I will r educe her furosemide to 20 mg once daily with the addition of Aldactone. Repeat electrolyte studies tomorrow. (6) Hypokalemia Is this a current diagnosis for this admission?: Yes Plan: 10/21/2019 Resolved. Continue supplementation and monitor serum potassium levels. - Plan Summary Summary: 10/21/2019 The patient has been tolerating her medications. I have added spironolactone. She will likely be ready for discharge tomorrow or . She will follow-up with Dr. Miller and will have a repeat echocardiogram and likely need a cardiac catheterization. - Time Time Spent with patient: 15-24 minutes Medications reviewed and adjusted accordingly: Yes Anticipated discharge: Home Within: within 48 hours
[2019-10-21] MEDS ORDERED: DOXEPIN HCL 10 MG CAPSULE PO SCH (22:00)
[2019-10-21] MEDS: ATORVASTATIN CALCIUM 40 MG TABLET NG SCH (22:03)
[2019-10-22] MEDS: ALBUTEROL SULFATE HFA (90 MCG/PUFF) 200 PUFF/8.5 GM MDI IH SCH ×4 (01:40→13:10)
[2019-10-22 05:00] LABS: HEMATOCRIT 37.3 % (36.0-47.0); MEAN CORPUSCULAR HEMOGLOBIN 33.2 pg (27.0-33.4); MEAN CORPUSCULAR HGB CONC 34.9 g/dL (32.0-36.0); MEAN CORPUSCULAR VOLUME 95 fl (80-97); PLATELET COUNT 246 10^3/uL (150-450); RED BLOOD COUNT 3.92 10^6/uL (3.72-5.28); RED CELL DISTRIBUTION WIDTH 13.1 % (11.5-14.0); WHITE BLOOD COUNT 15.4 10^3/uL (4.0-10.5)
[2019-10-22] MEDS: GABAPENTIN 300 MG CAPSULE NG SCH ×2 (05:11→13:10)
[2019-10-22 05:14] LABS: ANION GAP 8 (5-19); BLOOD UREA NITROGEN 30 mg/dL (7-20); CALCIUM 9.2 mg/dL (8.4-10.2); CARBON DIOXIDE 27 mmol/L (22-30); CHLORIDE 105 mmol/L (98-107); GLUCOSE 99 mg/dL (75-110)
[2019-10-22] MEDS ORDERED: FUROSEMIDE 20 MG TABLET PO SCH (10:00)
[2019-10-22] MEDS ORDERED: CLOPIDOGREL BISULFATE 75 MG TABLET PO SCH (10:00)
[2019-10-22] MEDS ORDERED: PREDNISONE 20 MG TABLET PO SCH (10:00)
[2019-10-22] MEDS ORDERED: SPIRONOLACTONE 25 MG TABLET PO SCH (10:00)
[2019-10-22] MEDS: METOPROLOL TARTRATE 25 MG TABLET PO SCH (10:13)
[2019-10-22] MEDS: BUSPIRONE HCL 10 MG TABLET PO SCH (10:13)
[2019-10-22] MEDS: ASPIRIN 81 MG TABLET, CHEWABLE NG SCH (10:13)
[2019-10-22] MEDS: LISINOPRIL 5 MG TABLET PO SCH (10:14)
[2019-10-22] MEDS: GUAIFENESIN 600 MG TABLET.SA PO SCH (10:14)
[2019-10-22] MEDS: FLUOXETINE HCL 20 MG CAPSULE NG SCH (10:14)
[2019-10-22] MEDS: POTASSIUM CHLORIDE 20 MEQ PACKET PO SCH (10:14)
--- NOTE | 2019-10-22 10:14 | PDOC PROGRESS REPORT ---
Subjective Progress Note for:: 10/22/19 Subjective:: Patient was seen and examined. She is resting in bed. Feels very comfortable. No chest pain or dyspnea is reported. Reason For Visit: ACUTE ON CHRONIC RESPIRATORY FAILURE, AECOPD Physical Exam Vital Signs: Temp Pulse Resp BP Pulse Ox 97.6 F 84 18 118/69 92 10/22/19 04:04 10/22/19 04:04 10/22/19 04:04 10/22/19 04:04 10/22/19 04:04 Intake & Output 10/21/19 10/22/19 10/23/19 06:59 06:59 06:59 Intake Total 1220 238 Output Total 1125 325 Balance 95 -87 Weight 46 kg 46 kg General appearance: PRESENT: no acute distress, cooperative, well-developed Head exam: PRESENT: atraumatic, normocephalic Eye exam: PRESENT: EOMI Respiratory exam: PRESENT: clear to auscultation lloyd, symmetrical, unlabored Cardiovascular exam: PRESENT: RRR, +S1, +S2 Pulses: PRESENT: normal radial pulses GI/Abdominal exam: PRESENT: soft Rectal exam: PRESENT: deferred Neurological exam: PRESENT: alert, awake, oriented to person, oriented to place, oriented to time, oriented to situation Psychiatric exam: PRESENT: appropriate affect Skin exam: PRESENT: intact, normal color Results Laboratory Results: 10/22/19 04:40 10/22/19 04:40 10/22/19 10/22/19 04:40 04:40 WBC 15.4 H RBC 3.92 Hgb 13.0 Hct 37.3 MCV 95 MCH 33.2 MCHC 34.9 RDW 13.1 Plt Count 246 Sodium 139.6 Potassium 4.0 Chloride 105 Carbon Dioxide 27 Anion Gap 8 BUN 30 H Creatinine 0.60 Est GFR ( Amer) > 60 Glucose 99 Calcium 9.2 Magnesium 1.8 10/15/19 10/15/19 10/15/19 02:20 06:30 12:30 Creatine Kinase CK-MB (CK-2) Troponin I 0.363 1.540 1.930 NT-Pro-B Natriuret Pep 193 H 10/15/19 10/15/19 10/15/19 18:17 21:15 21:15 Creatine Kinase 186 H CK-MB (CK-2) 15.30 H Troponin I 2.170 NT-Pro-B Natriuret Pep 4080 H 10/16/19 10/17/19 10/17/19 04:29 02:53 10:15 Creatine Kinase CK-MB (CK-2) 7.07 H Troponin I 2.140 0.811 0.668 NT-Pro-B Natriuret Pep 5830 H 10/19/19 10/19/19 09:50 22:30 Creatine Kinase CK-MB (CK-2) Troponin I 0.230 0.166 NT-Pro-B Natriuret Pep Impressions: Chest X-Ray 10/18/19 06:00 IMPRESSION: No acute findings visualized in the chest. Assessment & Plan - Diagnosis (1) NSTEMI (non-ST elevated myocardial infarction) Is this a current diagnosis for this admission?: Yes Plan: Non-STEMI with peak troponin greater than 2 with wall motion abnormality and left ventricular dysfunction with ejection fraction 30 to 35% All of the above could be related to a septic insult. Would recommend treating with aspirin 81 mg daily together with clopidogrel 75 mg daily Continue statin Continue low-dose beta-nilsa Continue low-dose DREW inhibitor Would recommend reassessment of LV function in about 4-6 weeks. Based on that assessment of myocardial ischemia perhaps with cardiac catheteriz ation should be considered. Patient the present time is asymptomatic with no chest pain or dyspnea. (2) LV dysfunction Is this a current diagnosis for this admission?: Yes Plan: LV dysfunction. Ejection fraction estimated at 35 to 40% This could be related to sepsis. Would recommend medications for dilated cardiomyopathy Would recommend low-dose beta-nilsa Low-dose DREW Could consider spironolactone at low dose Patient appears euvolemic Should consider repeat echocardiogram to reassess LV function in about 4 to 6 weeks or sooner based on clinical course.
[2019-10-22] MEDS: ENOXAPARIN SODIUM INJ 40 MG/0.4 ML DISP.SYRIN SUBCUT SCH (10:15)
[2019-10-22 14:38] VITALS: BP 116/77
--- NOTE | 2019-10-22 17:21 | PDOC DISCHARGE SUMMARY ---
Impression - Admit/DC Date/PCP Admission Date/Primary Care Provider: 10/15/19 03:27 RYDER JEFFERS MD Discharge Date: 10/22/19 - Assessment Summary: 10/21/2019 The patient has been tolerating her medications. I have added spironolactone. She will likely be ready for discharge tomorrow or . She will follow-up with Dr. Miller and will have a repeat echocardiogram and likely need a cardiac catheterization. - Additional Information Resuscitation Status: Full Code Discharge Diet: Regular Discharge Activity: Activity As Tolerated Referrals: [facility] [Other] (LEFT MESSAGE FOR OFFICE TO CALL PATIENT WITH A HOSPITAL FOLLOW UP APPT. A CARDIOLOGY REFERRAL FOR NEW ONSET CHF NEEDS TO BE SE NT TO DR. MILLER OFFICE PHONE # [phone] OFFICE FAX # [phone].) RYDER JEFFERS MD [Primary Care Provider] - 11/03/19 11:30 am ANTONY MILLER MD [ACTIVE PROVISIONAL STAFF] - (PATIENT WILL NEED A REFERRAL SENT TO THEM PRIOR TO AN APPT. BEING MADE.) Prescriptions: Spironolactone [Aldactone 25 mg Tablet] 25 mg PO DAILY #30 tablet Aspirin [Aspirin 81 mg Chewable Tablet] 81 mg NG DAILY #30 tab.chew Buspirone HCl [Buspar 10 mg Tablet] 10 mg PO Q12 #60 tablet Prednisone [Deltasone 10 mg Tablet] See Protocol PO ASDIR PRN #11 tablet PRN Reason: Furosemide [Lasix 20 mg Tablet] 20 mg PO DAILY #30 tablet Atorvastatin Calcium [Lipitor 40 mg Tablet] 40 mg NG QHS #30 tablet Metoprolol Tartrate [Lopressor 25 mg Tablet] 25 mg PO Q12 #30 tablet Guaifenesin [Mucinex Sr 600 mg Tablet.sa] 600 mg PO Q12 5 Days #10 tablet.sa Clopidogrel Bisulfate [Plavix 75 mg Tablet] 75 mg PO DAILY #30 tablet Lisinopril [Prinivil 5 mg Tablet] 5 mg PO Q12 #30 tablet Home Medications: Albuterol Sulfate [Proair HFA Inhalation Aerosol 8.5 gm MDI] 2 puff IH Q4HP PRN 10/15/19 Doxepin HCl [Sinequan 10 mg Capsule] 10 mg PO QHS 10/15/19 Fluoxetine HCl [Prozac] 40 mg PO DAILY 10/15/19 Gabapentin [Neurontin 100 mg Capsule] 100 mg PO TID 10/15/19 Trazodone HCl [Desyrel 50 mg Tablet] 50 mg PO HSP PRN 10/15/19 Umeclidinium Brm/Vilanterol Tr [Anoro Ellipta 62.5-25 Mcg INH] 1 each IH DAILY 10/15/19 Aspirin [Aspirin 81 mg Chewable Tablet] 81 mg NG DAILY #30 tab.chew 10/22/19 Atorvastatin Calcium [Lipitor 40 mg Tablet] 40 mg NG QHS #30 tablet 10/22/19 Buspirone HCl [Buspar 10 mg Tablet] 10 mg PO Q12 #60 tablet 10/22/19 Clopidogrel Bisulfate [Plavix 75 mg Tablet] 75 mg PO DAILY #30 tablet 10/22/19 Furosemide [Lasix 20 mg Tablet] 20 mg PO DAILY #30 tablet 10/22/19 Guaifenesin [Mucinex Sr 600 mg Tablet.sa] 600 mg PO Q12 5 Days #10 tablet.sa 10/22/19 Lisinopril [Prinivil 5 mg Tablet] 5 mg PO Q12 #30 tablet 10/22/19 Metoprolol Tartrate [Lopressor 25 mg Tablet] 25 mg PO Q12 #30 tablet 10/22/19 Prednisone [Deltasone 10 mg Tablet] See Protocol PO ASDIR PRN #11 tablet 10/22/19 Spironolactone [Aldactone 25 mg Tablet] 25 mg PO DAILY #30 tablet 10/22/19 History of Present Illiness History of Present Illness: PER H&P: "54-year-old white female presented with hypoxia and was obtunded. She required intubation by EMS at home. Admitted to ICU on mechanical ventilation and under SARS, 2-CoViD19 rule out. As patient is on mechanical ventilation I am unable to ascertain any review of systems. Did speak with her González who states that she has had a significant cough for the last 1 to 2 days. She had recently been diagnosed with emphysema and other than several doctors appointments has not had any known ill contacts. As far as the notices not been any fever. She is brought to the ICU where she was agitated and difficult to sedate. At one point she had a transient drop in blood pressure that responded to IV fluids. There was no fever. Patient self extubated while under light sedation requiring urgent emergent intubation and a SARS, 2-CoViD19 PUI Procedure: Emergent intubation Proceduralist: Alisa LESLIE Preprocedure diagnosis: Hypoxia with viral pneumonitis concern for SARS, 2- CoViD19 Post procedure diagnosis: Same with mild airway swelling Complications: None Blood loss: None Was appropriate identified secondary to active critical care. She had been under sedation but self extubated. To be noted that this was a SARS, 2-CoViD19 patient under investigation. While staff placed her on oxygen and bag mask valve I asked for no insufflation and only oxygen. With facemask shield and gown held a face mask on the face with a H type filter and provided oxygenation without ventilation She remained at 100% throughout. This point gave rapid sequence intubation medications: Fentanyl etomidate rocuronium followed by flush. Guided apneic oxygenation Waited a full 1 minute for complete paralyzation before removing anything from her face. Intubated with glide scope under apneic conditions. Tube visualized through the cord as well as the balloon. Ballottement felt at the sternal notch Chest rising was noted bilaterally To auscultate given the confines of PPE" Hospital Course Hospital Course: Patient admitted for severe hypoxemic and hypercarbic respiratory failure, intubated by EMS at her home for oxygen saturation of approximately 66%. Initially admitted to ICU where she self extubated. She was initially suspected to have coronavirus but this was ruled out with appropriate testing. She was reintubated by electronic integrated systems mechanic. Later extubated when breathing improved on 10/18. Patient later developed some ST elevation and had positive troponins with an elevated BNP. Cardiology was consulted on admission. They chose to give patient conservative treatment with planning for outpatient cardiac catheterization. They believe her severe respiratory failure may have caused a cardiac strain though given her risk factors she could certainly have CAD significantly. Catheterization is significantly delayed by the coronavirus pandemic in the limitations imposed on the availability of this test. On day of discharge patient very eager to leave the hospital, breathing comfortably on room air, no wheezing. (1) NSTEMI (non-ST elevated myocardial infarction) (2) Acute exacerbation of emphysema (3) Acute respiratory failure with hypercapnia Secondary to #1 and 2. COVID 19 negative Significantly improved; patient is now extubated and maintaining oxygen saturations on room air. Remaining evaluation and management as above. 10/21/2019 Respiratory failure resolved (4) Sepsis 10/21/2019 The patient had negative cultures so no particular organism isolated. She did have hypotension. She did require intubation. She does have reduced ejection fraction with elevated troponins. See separate note below. Sepsis resolved (5) Heart failure with reduced ejection fraction Echocardiogram preliminary results show LVEF approximately 32%. Continue lisinopril, metoprolol, furosemide, aspirin and statin therapy. Consider spironolactone. Cardiology is consulted. 10/21/[address] Miller and Dr. Lowery who have seen the patient. Possibly due to non-ST elevated myocardial infarction as the patient does have elevated troponins. Ejection fraction is around 30%. I have added spironolactone and she has already been on lisinopril and metoprolol. I will reduce her furosemide to 20 mg once daily with the addition of Aldactone. Repeat electrolyte studies tomorrow. (6) Hypokalemia 10/21/2019 Resolved. Continue supplementation and monitor serum potassium levels. Per cardiology: "(1) NSTEMI (non-ST elevated myocardial infarction) Non-STEMI with peak troponin greater than 2 with wall motion abnormality and left ventricular dysfunction with ejection fraction 30 to 35% All of the above could be related to a septic insult. Would recommend treating with aspirin 81 mg daily together with clopidogrel 75 mg daily Continue statin Continue low-dose beta-nilsa Continue low-dose DREW inhibitor Would recommend reassessment of LV function in about 4-6 weeks. Based on that assessment of myocardial ischemia perhaps with cardiac catheterization should be considered. Patient the present time is asymptomatic with no chest pain or dyspnea. (2) LV dysfunction LV dysfunction. Ejection fraction estimated at 35 to 40% This could be related to sepsis. Would recommend medications for dilated cardiomyopathy Would recommend low-dose beta-nilsa Low-dose DREW Could consider spironolactone at low dose Patient appears euvolemic Should consider repeat echocardiogram to reassess LV function in about 4 to 6 weeks or sooner based on clinical course." Physical Exam Vital Signs: Temp Pulse Resp BP Pulse Ox 98.3 F 97 18 116/77 92 10/22/19 14:36 10/22/19 14:36 10/22/19 14:36 10/22/19 14:36 10/22/19 14:36 Intake & Output 10/21/19 10/22/19 10/23/19 06:59 06:59 06:59 Intake Total 1220 238 600 Output Total 1125 325 Balance 95 -87 600 Weight 46 kg 46 kg General appearance: PRESENT: no acute distress, well-developed, well-nourished Head exam: PRESENT: atraumatic, normocephalic Eye exam: PRESENT: conjunctiva pink Mouth exam: PRESENT: moist Respiratory exam: PRESENT: clear to auscultation lloyd. ABSENT: rales, rhonchi, wheezes Cardiovascular exam: PRESENT: RRR. ABSENT: diastolic murmur, rubs, systolic murmur GI/Abdominal exam: PRESENT: normal bowel sounds, soft. ABSENT: distended, guarding, mass, organolmegaly, rebound, tenderness Rectal exam: PRESENT: deferred Musculoskeletal exam: PRESENT: ambulatory Neurological exam: PRESENT: alert, awake, oriented to person, oriented to place, oriented to time, oriented to situation Psychiatric exam: PRESENT: appropriate affect, normal mood Skin exam: PRESENT: dry, intact, warm Results Laboratory Results: WBC 15.4 10^3/uL (4.0-10.5) H 10/22/19 04:40 RBC 3.92 10^6/uL (3.72-5.28) 10/22/19 04:40 Hgb 13.0 g/dL (12.0-15.5) 10/22/19 04:40 Hct 37.3 % (36.0-47.0) 10/22/19 04:40 MCV 95 fl (80-97) 10/22/19 04:40 MCH 33.2 pg (27.0-33.4) 10/22/19 04:40 MCHC 34.9 g/dL (32.0-36.0) 10/22/19 04:40 RDW 13.1 % (11.5-14.0) 10/22/19 04:40 Plt Count 246 10^3/uL (150-450) 10/22/19 04:40 Lymph % (Auto) 14.7 % (13-45) 10/19/19 04:55 [place] % (Auto) 9.3 % (3-13) 10/19/19 04:55 Eos % (Auto) 0.0 % (0-6) 10/19/19 04:55 Baso % (Auto) 0.1 % (0-2) 10/19/19 04:55 Absolute Neuts (auto) 10.9 10^3/uL (1.7-8.2) H 10/19/19 04:55 Absolute Lymphs (auto) 2.1 10^3/uL (0.5-4.7) 10/19/19 04:55 Absolute Monos (auto) 1.3 10^3/uL (0.1-1.4) 10/19/19 04:55 Absolute Eos (auto) 0.0 10^3/uL (0.0-0.6) 10/19/19 04:55 Absolute Basos (auto) 0.0 10^3/uL (0.0-0.2) 10/19/19 04:55 Seg Neutrophils % 75.9 % (42-78) 10/19/19 04:55 PT 12.5 SEC (11.4-15.4) 10/19/19 04:55 INR 0.93 10/19/19 04:55 APTT 56.8 SEC (23.5-35.8) H 10/19/19 04:55 D-Dimer 0.94 ug/mL (0.00-0.50) H 10/17/19 02:53 Carbonic Acid 1.29 mmol/L (1.05-1.35) 10/18/19 19:00 HCO3/H2CO3 Ratio 24:1 10/18/19 19:00 ABG pH 7.49 (7.35-7.45) H 10/18/19 19:00 ABG pCO2 42.8 mmHg (35-45) 10/18/19 19:00 ABG pO2 71.6 mmHg (80-100) L 10/18/19 19:00 ABG HCO3 31.7 mmol/L (20-24) H 10/18/19 19:00 ABG Total CO2 33.1 mmol/L (21-25) H 10/18/19 19:00 ABG O2 Saturation 95.4 % (94-98) 10/18/19 19:00 ABG Base Excess 7.6 mmol/L 10/18/19 19:00 FiO2 30% 10/18/19 19:00 Sodium 139.6 mmol/L (137-145) 10/22/19 04:40 Potassium 4.0 mmol/L (3.6-5.0) 10/22/19 04:40 Chloride 105 mmol/L (98-107) 10/22/19 04:40 Carbon Dioxide 27 mmol/L (22-30) 10/22/19 04:40 Anion Gap 8 (5-19) 10/22/19 04:40 BUN 30 mg/dL (7-20) H 10/22/19 04:40 Creatinine 0.60 mg/dL (0.52-1.25) 10/22/19 04:40 Est GFR ( Amer) > 60 (>60) 10/22/19 04:40 Est GFR (MDRD) Non-Af > 60 (>60) 10/22/19 04:40 Glucose 99 mg/dL (75-110) 10/22/19 04:40 POC Glucose 246 mg/dL (70-110) H 10/15/19 02:57 Lactic Acid 1.8 mmol/L (0.7-2.1) 10/18/19 07:20 Calcium 9.2 mg/dL (8.4-10.2) 10/22/19 04:40 Phosphorus 3.3 mg/dL (2.5-4.5) 10/19/19 04:55 Magnesium 1.8 mg/dL (1.6-2.3) 10/22/19 04:40 Ferritin 87.70 ng/mL (11.1-264.0) 10/17/19 02:53 Total Bilirubin 0.3 mg/dL (0.2-1.3) 10/16/19 04:29 Direct Bilirubin 0.2 mg/dL (0.0-0.4) 10/16/19 04:29 Neonat Total Bilirubin Not Reportable 10/16/19 04:29 Neonat Direct Bilirubin Not Reportable 10/16/19 04:29 Neonat Indirect Bili Not Reportable 10/16/19 04:29 AST 47 U/L (14-36) H 10/16/19 04:29 ALT 26 U/L (<35) 10/16/19 04:29 Alkaline Phosphatase 46 U/L (38-126) 10/16/19 04:29 Ammonia < 8.7 umol/L (9-33) L 10/18/19 05:20 Creatine Kinase 186 U/L (30-135) H 10/15/19 21:15 CK-MB (CK-2) 7.07 ng/mL (<4.55) H 10/17/19 02:53 Troponin I 0.166 ng/mL 10/19/19 22:30 C-Reactive Protein 11.5 mg/L (<10.0) H 10/17/19 02:53 NT-Pro-B Natriuret Pep 5830 pg/mL (<125) H 10/17/19 02:53 Total Protein 5.8 g/dL (6.3-8.2) L 10/16/19 04:29 Albumin 3.6 g/dL (3.5-5.0) 10/16/19 04:29 Triglycerides 173 mg/dL (<150) H 10/18/19 05:20 Urine Color YELLOW 10/20/19 10:30 Urine Appearance CLOUDY 10/20/19 10:30 Urine pH 8.0 (5.0-9.0) 10/20/19 10:30 Ur Specific Felt 1.021 10/20/19 10:30 Urine Protein 100 mg/dL (NEGATIVE) H 10/20/19 10:30 Urine Glucose (UA) NEGATIVE mg/dL (NEGATIVE) 10/20/19 10:30 Urine Ketones 20 mg/dL (NEGATIVE) H 10/20/19 10:30 Urine Blood NEGATIVE (NEGATIVE) 10/20/19 10:30 Urine Nitrite NEGATIVE (NEGATIVE) 10/20/19 10:30 Urine Nitrite (Reflex) NEGATIVE (NEGATIVE) 10/15/19 02:20 Urine Bilirubin NEGATIVE (NEGATIVE) 10/20/19 10:30 Urine Urobilinogen NEGATIVE mg/dL (<2.0) 10/20/19 10:30 Ur Leukocyte Esterase NEGATIVE (NEGATIVE) 10/20/19 10:30 Leukocyte Esterase Rfl NEGATIVE (NEGATIVE) 10/15/19 02:20 Urine WBC (Auto) 4 /HPF 10/20/19 10:30 Urine RBC (Auto) 3 /HPF 10/20/19 10:30 U Hyaline Cast (Auto) 1 /LPF 10/16/19 04:29 Urine Bacteria (Auto) TRACE /HPF 10/20/19 10:30 Urine WBC (Reflex) 1 /HPF 10/15/19 02:20 Squamous Epi Cells Auto <1 /HPF 10/16/19 04:29 Amorphous Sediment Auto TRACE /HPF 10/20/19 10:30 Urine Mucus (Auto) RARE /LPF 10/20/19 10:30 Urine Ascorbic Acid NEGATIVE (NEGATIVE) 10/20/19 10:30 Nasal Adenovirus (PCR) Not Detected (Not Detect) 10/15/19 21:15 Nasal Coronavir 229E PCR Not Detected (Not Detect) 10/15/19 21:15 Nasal Coronavir HKU1 PCR Not Detected (Not Detect) 10/15/19 21:15 Nasal Coronavir NL63 PCR Not Detected (Not Detect) 10/15/19 21:15 Nasal Coronavir OC43 PCR Not Detected (Not Detect) 10/15/19 21:15 Nasal Enterovir/Rhinovir PCR Not Detected (Not Detect) 10/15/19 21:15 Nasal Influenza A PCR Not Detected (Not Detect) 10/15/19 21:15 Nasal Influenza A H1 PCR Not Detected (Not Detect) 10/15/19 21:15 Nasal Influ A H1 2009 PCR Not Detected (Not Detect) 10/15/19 21:15 Nasal Influenza A H3 PCR Not Detected (Not Detect) 10/15/19 21:15 Nasal Influenza B PCR Not Detected (Not Detect) 10/15/19 21:15 Nasal Parainfluen 1 PCR Not Detected (Not Detect) 10/15/19 21:15 Nasal Parainfluen 2 PCR Not Detected (Not Detect) 10/15/19 21:15 Nasal Parainfluen 3 PCR Not Detected (Not Detect) 10/15/19 21:15 Nasal Parainfluen 4 PCR Not Detected (Not Detect) 10/15/19 21:15 Nasal RSV (PCR) Not Detected (Not Detect) 10/15/19 21:15 Nasal B.pertussis DNA PCR Not Detected (Not Detect) 10/15/19 21:15 Nasal C.pneumoniae (PCR) Not Detected (Not Detect) 10/15/19 21:15 Nasal M.pneumoniae (PCR) Not Detected (Not Detect) 10/15/19 21:15 Time Trough Drawn 0940 10/18/19 09:40 Vancomycin Trough 7.6 ug/mL (5.0-20.0) 10/18/19 09:40 COVID-19 Source NASOPHARYNGEAL 10/15/19 04:00 COVID-19 (CHIDI) NOT DETECTED 10/15/19 04:00 Human Metapneumovir PCR Not Detected (Not Detect) 10/15/19 21:15 Influenza A (Rapid) NEGATIVE (NEGATIVE) 10/15/19 03:15 Influenza B (Rapid) NEGATIVE (NEGATIVE) 10/15/19 03:15 10/15/19 10/15/19 10/15/19 02:20 06:30 12:30 CK-MB (CK-2) Troponin I 0.363 1.540 1.930 NT-Pro-B Natriuret Pep 193 H 10/15/19 10/15/19 10/16/19 18:17 21:15 04:29 CK-MB (CK-2) 15.30 H Troponin I 2.170 2.140 NT-Pro-B Natriuret Pep 4080 H 10/17/19 10/17/19 10/19/19 02:53 10:15 09:50 CK-MB (CK-2) 7.07 H Troponin I 0.811 0.668 0.230 NT-Pro-B Natriuret Pep 5830 H 10/19/19 22:30 CK-MB (CK-2) Troponin I 0.166 NT-Pro-B Natriuret Pep Impressions: Chest X-Ray 10/15/19 00:00 IMPRESSION: 1. Placement of right central venous line with the tip in the region of the superior vena cava. No evidence of pneumothorax. 2. Endotracheal and nasogastric tubes are again identified. The tip of the endotracheal tube is approximately 2.2 cm above the duane. Chest X-Ray 10/15/19 00:00 IMPRESSION: No significant change. Chest X-Ray 10/15/19 02:28 IMPRESSION: Interval intubation. Else stable. Chest X-Ray 10/18/19 06:00 IMPRESSION: No acute findings visualized in the chest. Plan Plan of Treatment: Follow-up PCP Follow-up with tax associate attorney for catheterization planning No smoking, no alcohol use Time Spent: Greater than 30 Minutes Stroke Is this a Stroke Patient?: No Acute Heart Failure - Is this a Heart Failure Patient?: Yes Documentation of LVEF assessment?: Yes LVEF < 40%?: Yes-if yes answer questions a through e a) Discharged on ACEI?: Yes b) Discharges on ARB?: No-document contraindications Reason(s) not discharged on ARB: Other c) Discharged on ARNI?: No-Document Contraindications Reason(s) not discharged on ARNI: ACEI use within the prior 36 hours d) Discharged on evidence-based Beta nilsa(carvedilol, sustained release metoprolol succinate, or bisoprolol)?: Yes e) For LVEF <35%, discharged on Aldosterone antagonist?: Yes Follow-up Appointment scheduled within 7 days?: Yes
[2019-10-22] MEDS ORDERED: DOXEPIN HCL 10 MG CAPSULE PO SCH (22:00)
== END 2019-10-22 15:30 | disposition home or self-care (01) | DRG 871 ==
LOC: ER 02:02 → EH 03:27 → ICU 06:45 → 4S 10-19 15:08
PROVIDERS: ADMIT Internal Medicine Critical Care Medicine; ATTEND Internal Medicine
PROC: 5A1945Z Respiratory Ventilation, 24-96 Consecutive Hours (ICD-10-PCS; principal; 2019-10-15)
PROC: 0BH17EZ Insertion of Endotracheal Airway into Trachea, Via Natural or Artificial Opening (ICD-10-PCS; 2019-10-15)
PROC: 02HV33Z Insertion of Infusion Device into Superior Vena Cava, Percutaneous Approach (ICD-10-PCS; 2019-10-15)
PROC: 03HY32Z Insertion of Monitoring Device into Upper Artery, Percutaneous Approach (ICD-10-PCS; 2019-10-17)
DX: A41.9 Sepsis, unspecified organism (principal); J96.21 Acute and chronic respiratory failure with hypoxia; I21.4 Non-ST elevation (NSTEMI) myocardial infarction; J96.22 Acute and chronic respiratory failure with hypercapnia; I42.0 Dilated cardiomyopathy; E87.2 Acidosis; E87.6 Hypokalemia; F41.1 Generalized anxiety disorder; J43.9 Emphysema, unspecified; F17.210 Nicotine dependence, cigarettes, uncomplicated; R65.20 Severe sepsis without septic shock; Z78.1 Physical restraint status; Z79.899 Other long term (current) drug therapy; Z79.82 Long term (current) use of aspirin; Z79.52 Long term (current) use of systemic steroids; Z20.828 Contact with and (suspected) exposure to other viral communicable diseases
CPT/HCPCS: 31500; 36415; 36620; 71045; 80048; 80053; 80202; 81001; 82140; 82550; 82553; 82728; 82803; 82962; 83605; 83735; 83880; 84100; 84478; 84484; 85025; 85027; 85379; 85610; 85730; 86140; 87040; 87070; 87205; 87486; 87581; 87633; 87635; 87798; 87804; 93005; 93010; 93306; 94002; 94003; 94640; 94667; 94668; 94799; 96360; 99233; 99291; 99292; J0456; J0692; J0696; J1170; J1644; J1650; J1940; J2060; J2250; J2260; J2704; J2920; J3010; J3370; J3480; J3490; J7060; J7120; J7512; J7620; P9041; S0028

== ENCOUNTER 2020-01-05 05:06 | Inpatient (IN) | payer OTHER ==
[2020-01-05] MEDS ORDERED: LORAZEPAM INJ 2 MG/1 ML VIAL IV ONE (05:21)
[2020-01-05] MEDS ORDERED: HYDROMORPHONE HCL INJ/PF 2 MG/ML AMPULE IV ONE (05:21)
[2020-01-05] MEDS ORDERED: VECURONIUM BROMIDE INJ 10 MG VIAL IV ONE (05:22)
[2020-01-05] MEDS ORDERED: PROPOFOL 1,000 MG/100 ML INFUS..BTL IV PRN (05:34)
[2020-01-05] MEDS ORDERED: PROPOFOL INJ 200 MG/20 ML VIAL IV ONE (05:49)
[2020-01-05] MEDS ORDERED: ETOMIDATE INJ/PF 20 MG/10 ML SDV IV ONE (06:02)
[2020-01-05 06:17] LABS: ALBUMIN 4.6 g/dL (3.5-5.0); ALKALINE PHOSPHATASE 52 U/L (38-126); ANION GAP 6 (5-19); ASPARTATE AMINO TRANSFERASE 35 U/L (14-36); BILIRUBIN,TOTAL 0.4 mg/dL (0.2-1.3); BLOOD UREA NITROGEN 15 mg/dL (7-20); CALCIUM 8.7 mg/dL (8.4-10.2); CARBON DIOXIDE 26 mmol/L (22-30); CHLORIDE 107 mmol/L (98-107); GLUCOSE 224 mg/dL (75-110); POTASSIUM 4.5 mmol/L (3.6-5.0); TOTAL PROTEIN 7.6 g/dL (6.3-8.2)
--- NOTE | 2020-01-05 07:23 | ER Document Report ---
Entered by KAN DSOUZA SCRIBE 01/05/20 0525 Acting as scribe for:GRAEME NARVAEZ IV, MD ED Respiratory Problem - General Chief Complaint: Respiratory Arrest Stated Complaint: RESPIRATORY ARREST Mode of Arrival: Medic Information source: Emergency Med Personnel Notes: This 54 year old female patient with a history of HTN, COPD, and asthma brought in by EMS from home presents to the ED today with complaints of respiratory distress that occurred just prior to arrival. EMS administered 125 mg Solumedrol, 2 gm Mag, and x2 A&A treatments (1 at the scene, 1 during transport). Patient also received 0.4 mg Narcan IV with no improvement in responsiveness. EMS reports that the patient became obtunded with diminished air movement during transport, so they started assisted ventilations via BVM. TRAVEL OUTSIDE OF THE [place] IN LAST 30 DAYS: No - Related Data Allergies/Adverse Reactions: No Known Allergies Allergy (Verified 01/07/20 12:24) Past Medical History - General Information source: Emergency Med Personnel - Social History Smoking Status: Current Every Day Smoker Cigarette use (# per day): Yes - 0.5 ppd Chew tobacco use (# tins/day): No Smoking Education Provided: No Lives with: Spouse/Significant other Family History: Reviewed & Not Pertinent, COPD Patient has suicidal ideation: No Patient has homicidal ideation: No - Past Medical History Cardiac Medical History: Reports: Hx Hypertension Pulmonary Medical History: Reports: Hx Asthma, Hx COPD Past Surgical History: Reports: Hx Section, Hx Oral Surgery - X3, Hx Tubal Ligation Review of Systems - Review of Systems -: Yes ROS unobtainable due to patient's medical condition Physical Exam - Vital signs Vitals: Resp BP Pulse Ox 26 H 180/107 H 100 01/05/20 05:08 01/05/20 05:08 01/05/20 05:08 - General General appearance: Other - Unresponsive to stimuli of bagging. Patient was being bagged by EMS upon ED arrival. - HEENT Head: Normocephalic, Atraumatic - Respiratory Respiratory status: Respiratory distress Chest status: Nontender Breath sounds: Wheezing - Wheezing throughtout all lung carranza bilaterally Chest palpation: Normal - Cardiovascular Rhythm: Regular, Tachycardia Heart sounds: Normal auscultation Murmur: No Friction rub: No Gallop: None auscultated - Abdominal Inspection: Normal Distension: No distension Bowel sounds: Normal Tenderness: Nontender - Abdomen soft Organomegaly: No organomegaly - Back Back: Normal, Nontender - Extremities General upper extremity: Normal inspection General lower extremity: Normal inspection. No: Edema - Neurological Neuro grossly intact: Yes - Psychological Associated symptoms: Other - Unable to assess due to patient's medical condition - Skin Skin Temperature: Warm Skin Moisture: Dry Skin Color: Normal Course - Vital Signs Vital signs: Temp Pulse Resp BP Pulse Ox 98.5 F 97 17 128/72 H 97 01/10/20 04:23 01/10/20 04:23 01/10/20 04:23 01/10/20 04:23 01/10/20 04:23 - Laboratory Result Diagrams: 01/09/20 03:20 01/09/20 03:20 Laboratory results interpreted by me: 01/05/20 01/05/20 01/05/20 05:11 05:11 05:11 WBC 16.7 H RDW 14.4 H Eos % (Auto) 15.8 H Absolute Lymphs (auto) 6.9 H Absolute Eos (auto) 2.6 H Seg Neutrophils % 34.3 L Carbonic Acid ABG pH ABG pCO2 ABG pO2 ABG O2 Saturation Glucose 224 H Magnesium 3.8 H Urine Protein Urine Glucose (UA) Urine Blood 01/05/20 01/05/20 01/05/20 07:55 08:10 11:04 WBC RDW Eos % (Auto) Absolute Lymphs (auto) Absolute Eos (auto) Seg Neutrophils % Carbonic Acid 1.46 H 1.42 H ABG pH 7.30 L 7.30 L ABG pCO2 48.5 H 47.1 H ABG pO2 106.6 H 131.6 H ABG O2 Saturation 98.3 H Glucose Magnesium Urine Protein >=500 H Urine Glucose (UA) 50 H Urine Blood MODERATE H Procedures - Intubation Orotracheal Time of Intubation: 05:15 - pt being bagged by ems Airway evaluation: Normal anatomy Mallampati Classification: Class 2 Medications: Etomidate, Succinylcholine Intubation method: Orotracheal Blade type: Cordero Blade size: 3 Equipment used: Glidescope ETT size: 7.5 ETT secured at: Lips ETT secured at (cm): 22 Breath Sounds after Intubation: Equal End tidal CO2 confirmed: Yes Post Intubation Xray: Yes Intubation Complications: No complications Critical Care Note - Critical Care Note Total time excluding time spent on procedures (mins): 120 - respiratory failure Discharge - Discharge Clinical Impression: Acute respiratory failure Qualifiers: Respiratory failure complication: unspecified whether with hypoxia or hypercapnia Qualified Code(s): J96.00 - Acute respiratory failure, unspecified whether with hypoxia or hypercapnia Condition: Critical Disposition: ADMITTED INPATIENT Admitting Provider: Tad (Roller Print Tender) Unit Admitted: ICU I personally performed the services described in the documentation, reviewed and edited the documentation which was dictated to the scribe in my presence, and it accurately records my words and actions.
--- NOTE | 2020-01-05 07:48 | RADIOLOGY REPORT (SQ) ---
EXAM DESCRIPTION: XR ABDOMEN 1 VIEW (KUB) COMPLETED DATE/TME: 01/05/2020 05:39 CLINICAL HISTORY: 54 years, Female, ett/ogt placement COMPARISON: None. FINDINGS: Nonobstructive bowel gas pattern. Endotracheal tube tip terminates in the stomach. The proximal sidehole is above the GE junction. No abnormal calcifications. No acute osseous abnormality. IMPRESSION: Proximal sidehole of the NG tube is above the GE junction. Consider advancement for 8 cm. Nonobstructive bowel gas pattern.
--- NOTE | 2020-01-05 07:49 | RADIOLOGY REPORT (SQ) ---
EXAM DESCRIPTION: XR CHEST 1 VIEW COMPLETED DATE/TME: 01/05/2020 05:39 CLINICAL HISTORY: 54 years, Female, ett/ogt placement Comparison: October 18, 2019 FINDINGS: Endotracheal tube terminates at the level of the clavicles in good position. NG tube terminates below the diaphragm outside the [id number]. The lungs are clear. There are no pleural abnormalities. Cardiac silhouette and pulmonary vessels are normal. IMPRESSION: Clear lungs. ET tube in good position.
[2020-01-05] MEDS: LORAZEPAM INJ 2 MG/1 ML VIAL IV ONE ×2 (07:51→07:56)
--- NOTE | 2020-01-05 08:08 | EKG REPORT ---
SEVERITY:- ABNORMAL ECG - SINUS TACHYCARDIA BIATRIAL ABNORMALITIES : Confirmed by: Eileen Jackson 05-Jan-2020 08:07:32
[2020-01-05 08:14] LABS: APPEARANCE,URINE CLEAR; BILIRUBIN,URINE NEGATIVE (NEGATIVE); COLOR,URINE YELLOW; GLUCOSE, URINE 50 mg/dL (NEGATIVE); KETONES,URINE NEGATIVE (NEGATIVE); LEUKOCYTE ESTERASE,URINE NEGATIVE (NEGATIVE); NITRITE,URINE NEGATIVE (NEGATIVE); PROTEIN,URINE >=500 mg/dL (NEGATIVE); UROBILINOGEN,URINE NEGATIVE mg/dL (<2.0)
[2020-01-05 08:19] LABS: ABSOLUTE BASOPHILS # (AUTO) 0.2 10^3/uL (0.0-0.2); ABSOLUTE EOSINOPHILS # (AUTO) 2.6 10^3/uL (0.0-0.6); ABSOLUTE LYMPHOCYTES (AUTO) 6.9 10^3/uL (0.5-4.7); ABSOLUTE MONOCYTES (AUTO) 1.3 10^3/uL (0.1-1.4); ABSOLUTE NEUT (AUTO) 5.7 10^3/uL (1.7-8.2); BASOPHILS % (AUTO) 0.9 % (0-2); EOSINOPHILS % (AUTO) 15.8 % (0-6); HEMATOCRIT 40.8 % (36.0-47.0); HEMOGLOBIN 13.7 g/dL (12.0-15.5); LYMPHOCYTES % (AUTO) 41.3 % (13-45); MEAN CORPUSCULAR HEMOGLOBIN 32.4 pg (27.0-33.4); MEAN CORPUSCULAR HGB CONC 33.5 g/dL (32.0-36.0); MEAN CORPUSCULAR VOLUME 97 fl (80-97); MONOCYTES % (AUTO) 7.7 % (3-13); PLATELET COUNT 339 10^3/uL (150-450); RED BLOOD COUNT 4.22 10^6/uL (3.72-5.28); RED CELL DISTRIBUTION WIDTH 14.4 % (11.5-14.0); SEGMENTED NEUTROPHILS % (AUTO) 34.3 % (42-78); TOTAL CELLS COUNTED % (AUTO) 100 %; WHITE BLOOD COUNT 16.7 10^3/uL (4.0-10.5)
[2020-01-05 08:26] LABS: URINE AMPHETAMINES SCREEN NEGATIVE; URINE BARBITURATES SCREEN NEGATIVE; URINE BENZODIAZEPINES SCREEN NEGATIVE; URINE COCAINE SCREEN NEGATIVE; URINE MARIJUANA (THC) SCREEN NEGATIVE; URINE METHADONE SCREEN NEGATIVE; URINE PHENCYCLIDINE SCREEN NEGATIVE
[2020-01-05 08:28] LABS: ARTERIAL BLOOD BASE EXCESS -3.3 mmol/L; ARTERIAL BLOOD H2CO3 1.46 mmol/L (1.05-1.35); ARTERIAL BLOOD HCO3 23.4 mmol/L (20-24); ARTERIAL BLOOD O2 SATURATION 97.4 % (94-98); ARTERIAL BLOOD PCO2 48.5 mmHg (35-45); ARTERIAL BLOOD PO2 106.6 mmHg (80-100); ARTERIAL BLOOD TOTAL CO2 24.9 mmol/L (21-25)
[2020-01-05 08:30] LABS: ARTERIAL BLOOD FIO2 40%
[2020-01-05] MEDS ORDERED: FUROSEMIDE INJ/PF 40 MG/4 ML SDV IV ONE (09:23)
[2020-01-05] MEDS ORDERED: SUCCINYLCHOLINE CHLORIDE INJ 200 MG/10 ML VIAL ONE (10:43)
[2020-01-05] MEDS: PROPOFOL 1,000 MG/100 ML INFUS..BTL IV PRN ×3 (11:02→18:45)
[2020-01-05 11:21] LABS: ARTERIAL BLOOD H2CO3 1.42 mmol/L (1.05-1.35); ARTERIAL BLOOD HCO3 22.6 mmol/L (20-24); ARTERIAL BLOOD O2 SATURATION 98.3 % (94-98); ARTERIAL BLOOD PCO2 47.1 mmHg (35-45); ARTERIAL BLOOD PO2 131.6 mmHg (80-100)
[2020-01-05 11:24] LABS: ARTERIAL BLOOD FIO2 40%
[2020-01-05] MEDS ORDERED: FENTANYL CITRATE INJ/PF 100 MCG/2 ML AMPUL IV ONE (13:14)
[2020-01-05] MEDS: IPRATROPIUM/ALBUTEROL 0.5-2.5 MG/3 ML AMPUL NEB SCH ×2 (13:51→20:05)
[2020-01-05] MEDS ORDERED: PHARMACY COMMUNICATION ORDER MC NR (14:00)
--- NOTE | 2020-01-05 14:31 | RADIOLOGY REPORT (SQ) ---
EXAM DESCRIPTION: KUB/ABDOMEN (SINGLE VIEW) IMAGES COMPLETED DATE/TIME: 01/05/2020 2:21 pm REASON FOR STUDY: Check Placement of NG Tube COMPARISON: Earlier the same day. NUMBER OF VIEWS: One view. TECHNIQUE: Supine radiographic image of the abdomen acquired. LIMITATIONS: None. FINDINGS: BOWEL GAS PATTERN: NG tube is been advanced. Catheter tip now overlies the left mid abdom en probably within stomach. Stomach is decompressed. Gas pattern is nonspecific. CALCIFICATIONS: No suspicious calcifications. SOFT TISSUES: No gross mass or suggestion of organomegaly. HARDWARE: None in the abdomen. BONES: No acute fracture. No worrisome bone lesions. OTHER: No other significant finding. IMPRESSION: NG tube is been advanced compared to the earlier film. Mild gastric distention previous ly noted has resolved. TECHNICAL DOCUMENTATION: JOB ID: [id number] 2010 [employer]- All Rights Reserved Reading location - IP/workstation name: [email or web address]
[2020-01-05] MEDS: MORPHINE SULFATE 10 MG/ML INJ IV SCH ×7 (15:33→23:59)
[2020-01-05] MEDS: HEPARIN SOD (PORCINE) 5,000 UNIT/ML 1 ML VIAL SUBCUT SCH ×2 (15:34→22:29)
--- NOTE | 2020-01-05 15:53 | CRITICAL CARE ADMISSION REPORT ---
HPI Date:: 01/05/20 Time:: 08:03 Reason for ICU Reason:: endotracheal intubation Admission Date/Time & PCP: Admission Date/Time: Primary Care Provider: RYDER JEFFERS MD HPI: This 54 year old female smoker presented to the ER via EMS reportedly after experiencing respiratory distress. She was described as being in extremis with tripodding during respirations. No SpO2 documented. She was tachypneic. She was given aerosol treatment in the field without significant improvement and was transported to the ER, where she was intubated. At the time of clinical interview, the patient is awake and indicating that she wants the ET tube out. She follows commands. No ABG drawn. No CBC. CXR shows increased interstitial markings, suspicious for pulmonary edema. No pneumonic infiltrate. History obtained from:: Review of chart, discussion with nurse - Diagnosis/Plan (1) Endotracheally intubated Is this a current diagnosis for this admission?: Yes Plan: ABG to titrate vent settings. Check procalcitonin, proBNP. Agree with propofol for sedation. No acute process is appreciated on her chest x-ray, perhaps with the exception of some increase in interstitial markings and curly B-lines. Is unclear whether this is a COPD exacerbation versus CHF exacerbation. (2) Emphysema of lung Qualifiers: Emphysema type: unspecified Qualified Code(s): J43.9 - Emphysema, unspecified Is this a current diagnosis for this admission?: Yes Plan: Duonebs scheduled. (3) Peripheral eosinophilia Is this a current diagnosis for this admission?: Yes Plan: perhaps eosinophilic ashtma with exacerbation. Check serum total IgE. Start SoluMedrol 40 mg IV q 8 hr. (4) Person under investigation for COVID-19 Is this a current diagnosis for this admission?: Yes Plan: This patient is afebrile and does not appear to present with the typical lab findings or imaging findings to raise suspicion for COVID. Isolation protocols may be discontinued for this patient. (5) Heart failure with reduced ejection fraction Is this a current diagnosis for this admission?: Yes Plan: Baseline LVEF 30-35%. Past Medical History Cardiac Medical History: Reports: Hypertension Pulmonary Medical History: Reports: Asthma, Chronic Obstructive Pulmonary Disease (COPD) Past Surgical History Past Surgical History: Reports: Section, Tubal Ligation Social/Family History - Social History Lives with: Spouse/Significant other Smoking Status: Current Every Day Smoker - Medication/Allergies Home Medications: Albuterol Sulfate [Proair HFA Inhalation Aerosol 8.5 gm MDI] 2 puff IH Q4HP PRN 10/15/19 Doxepin HCl [Sinequan 10 mg Capsule] 10 mg PO QHS 10/15/19 Fluoxetine HCl [Prozac] 40 mg PO DAILY 10/15/19 Gabapentin [Neurontin 100 mg Capsule] 100 mg PO TID 10/15/19 Trazodone HCl [Desyrel 50 mg Tablet] 50 mg PO HSP PRN 10/15/19 Umeclidinium Brm/Vilanterol Tr [Anoro Ellipta 62.5-25 Mcg INH] 1 each IH DAILY 10/15/19 Aspirin [Aspirin 81 mg Chewable Tablet] 81 mg NG DAILY #30 tab.chew 10/22/19 Atorvastatin Calcium [Lipitor 40 mg Tablet] 40 mg NG QHS #30 tablet 10/22/19 Buspirone HCl [Buspar 10 mg Tablet] 10 mg PO Q12 #60 tablet 10/22/19 Clopidogrel Bisulfate [Plavix 75 mg Tablet] 75 mg PO DAILY #30 tablet 10/22/19 Furosemide [Lasix 20 mg Tablet] 20 mg PO DAILY #30 tablet 10/22/19 Guaifenesin [Mucinex Sr 600 mg Tablet.sa] 600 mg PO Q12 5 Days #10 tablet.sa 10/22/19 Lisinopril [Prinivil 5 mg Tablet] 5 mg PO Q12 #30 tablet 10/22/19 Metoprolol Tartrate [Lopressor 25 mg Tablet] 25 mg PO Q12 #30 tablet 10/22/19 Prednisone [Deltasone 10 mg Tablet] See Protocol PO ASDIR PRN #11 tablet 10/22/19 Spironolactone [Aldactone 25 mg Tablet] 25 mg PO DAILY #30 tablet 10/22/19 Allergies/Adverse Reactions: No Known Allergies Allergy (Unverified 09/10/19 11:39) Review of Systems ROS unobtainable: Due to endotracheal tube Physical Exam Vital Signs: Temp Pulse Resp BP Pulse Ox 98.4 F 17 129/70 H 99 01/05/20 07:50 01/05/20 07:50 01/05/20 07:50 01/05/20 07:50 Intake & Output 06/01/05/20 01/06/20 06:59 06:59 06:59 Intake Total 2 8 Balance 2 8 Weight 49.7 kg Weight/Height Weight 49.7 kg General appearance: PRESENT: no acute distress, thin, well-developed Head exam: PRESENT: atraumatic, normocephalic Eye exam: PRESENT: EOMI, PERRLA. ABSENT: scleral icterus Mouth exam: PRESENT: other - copious mucous secretions Neck exam: PRESENT: full ROM. ABSENT: carotid bruit, JVD Respiratory exam: PRESENT: prolonged expiratory phas, rales, rhonchi, symmetrical Cardiovascular exam: PRESENT: RRR. ABSENT: gallop, rubs, systolic murmur GI/Abdominal exam: PRESENT: normal bowel sounds, soft. ABSENT: distended, guarding, mass, organolmegaly, rebound, tenderness Extremities exam: PRESENT: full ROM. ABSENT: calf tenderness, clubbing, pedal edema Neurological exam: PRESENT: alert, awake, reflexes normal, CN II-XII grossly intact. ABSENT: motor sensory deficit Psychiatric exam: PRESENT: agitated, anxious Skin exam: PRESENT: dry, intact, warm. ABSENT: cyanosis, rash Tubes/Lines: PRESENT: Endotracheal Tube Laboratory/Radiographs Laboratory Results: 01/05/20 05:11 01/05/20 05:11 Sodium 138.9 Potassium 4.5 Chloride 107 Carbon Dioxide 26 Anion Gap 6 BUN 15 Creatinine 0.68 Est GFR ( Amer) > 60 Glucose 224 H Calcium 8.7 Total Bilirubin 0.4 AST 35 Alkaline Phosphatase 52 Total Protein 7.6 Albumin 4.6 01/05/20 05:11 Troponin I 0.019 Impressions: Chest X-Ray 01/05/20 05:39 IMPRESSION: Clear lungs. ET tube in good position. KUB X-Ray 01/05/20 05:39 IMPRESSION: Proximal sidehole of the NG tube is above the GE junction. Consider advancement for 8 cm. Nonobstructive bowel gas pattern. All labs, radiographs, diagnostic studies and EKGs were personally reviewed: Yes In addition, reports of radiographic and diagnostic studies were read: Yes Critical Time Critical Time (minutes): 60 -: The care of a critically ill patient is dynamic. This note represents a static moment in the admission process. Orders and treatments may be given simultaneously and urgently, and time is not liability claims representative of the treatment process. This patient requires Critical Care secondary to life threatening organ or limb dysfunction. Without Critical Care services, the patient is at risk for incre ased mortality and morbidity.
[2020-01-05] MEDS ORDERED: PIPERACILLIN SODIUM/TAZOBACTAM 2.25 GM in NORMAL SALINE 50 ML IV SCH (18:00)
[2020-01-05] MEDS ORDERED: VANCOMYCIN HCL 0 MG in DEXTROSE 5%-WATER 250 ML IV NR (18:00)
--- NOTE | 2020-01-05 18:00 | PDOC CRITICAL CARE PROG REPORT ---
General Reason for ICU Addmission:: endotracheal intubation Physical Exam Vital Signs: Temp Pulse Resp BP Pulse Ox 99.7 F 112 H 22 H 107/68 98 01/05/20 17:07 01/05/20 17:07 01/05/20 17:07 01/05/20 17:07 01/05/20 17:07 Intake & Output 01/04/20 01/05/20 01/06/20 06:59 06:59 06:59 Intake Total 2 198 Output Total 1060 Balance 2 -862 Weight 49.7 kg 47.8 kg Weight/Height Weight 47.8 kg Laboratory/Radiographs Laboratory Results: 01/05/20 05:11 01/05/20 05:11 01/05/20 01/05/20 01/05/20 05:11 05:11 05:11 WBC 16.7 H RBC 4.22 Hgb 13.7 Hct 40.8 MCV 97 MCH 32.4 MCHC 33.5 RDW 14.4 H Plt Count 339 Seg Neutrophils % 34.3 L Carbonic Acid HCO3/H2CO3 Ratio ABG pH ABG pCO2 ABG pO2 ABG HCO3 ABG O2 Saturation ABG Base Excess FiO2 Sodium 138.9 Cancelled Potassium 4.5 Cancelled Chloride 107 Cancelled Carbon Dioxide 26 Cancelled Anion Gap 6 Cancelled BUN 15 Cancelled Creatinine 0.68 Cancelled Est GFR ( Amer) > 60 Cancelled Est GFR (Non-Af Amer) Cancelled Glucose 224 H Cancelled Calcium 8.7 Cancelled Magnesium Total Bilirubin 0.4 Cancelled AST 35 Cancelled Alkaline Phosphatase 52 Cancelled Total Protein 7.6 Cancelled Albumin 4.6 Cancelled Urine Color Urine Appearance Urine pH Ur Specific [place] Urine Protein Urine Glucose (UA) Urine Ketones Urine Blood Urine Nitrite Ur Leukocyte Esterase Urine WBC (Auto) Urine RBC (Auto) 01/05/20 01/05/20 01/05/20 05:11 07:55 08:10 WBC RBC Hgb Hct MCV MCH MCHC RDW Plt Count Seg Neutrophils % Carbonic Acid 1.46 H HCO3/H2CO3 Ratio 16:1 ABG pH 7.30 L ABG pCO2 48.5 H ABG pO2 106.6 H ABG HCO3 23.4 ABG O2 Saturation 97.4 ABG Base Excess -3.3 FiO2 40% Sodium Potassium Chloride Carbon Dioxide Anion Gap BUN Creatinine Est GFR ( Amer) Est GFR (Non-Af Amer) Glucose Calcium Magnesium 3.8 H Total Bilirubin AST Alkaline Phosphatase Total Protein Albumin Urine Color YELLOW Urine Appearance CLEAR Urine pH 5.0 Ur Specific [place] 1.020 Urine Protein >=500 H Urine Glucose (UA) 50 H Urine Ketones NEGATIVE Urine Blood MODERATE H Urine Nitrite NEGATIVE Ur Leukocyte Esterase NEGATIVE Urine WBC (Auto) 2 Urine RBC (Auto) 6 01/05/20 01/05/20 10:16 11:04 WBC RBC Hgb Hct MCV MCH MCHC RDW Plt Count Seg Neutrophils % Carbonic Acid Cancelled 1.42 H HCO3/H2CO3 Ratio Cancelled 15:1 ABG pH Cancelled 7.30 L ABG pCO2 Cancelled 47.1 H ABG pO2 Cancelled 131.6 H ABG HCO3 Cancelled 22.6 ABG O2 Saturation Cancelled 98.3 H ABG Base Excess Cancelled -4.0 FiO2 Cancelled 40% Sodium Potassium Chloride Carbon Dioxide Anion Gap BUN Creatinine Est GFR ( Amer) Est GFR (Non-Af Amer) Glucose Calcium Magnesium Total Bilirubin AST Alkaline Phosphatase Total Protein Albumin Urine Color Urine Appearance Urine pH Ur Specific [place] Urine Protein Urine Glucose (UA) Urine Ketones Urine Blood Urine Nitrite Ur Leukocyte Esterase Urine WBC (Auto) Urine RBC (Auto) 01/05/20 01/05/20 01/05/20 05:11 05:11 05:11 Creatine Kinase 110 Troponin I 0.019 NT-Pro-B Natriuret Pep 91 Impressions: Chest X-Ray 01/05/20 05:39 IMPRESSION: Clear lungs. ET tube in good position. KUB X-Ray 01/05/20 13:57 IMPRESSION: NG tube is been advanced compared to the earlier film. Mild gastric distention previously noted has resolved. Assessment and Plan - Diagnosis (1) Endotracheally intubated Is this a current diagnosis for this admission?: Yes (2) Emphysema of lung Qualifiers: Emphysema type: unspecified Qualified Code(s): J43.9 - Emphysema, unspecified Is this a current diagnosis for this admission?: Yes (3) Peripheral eosinophilia Is this a current diagnosis for this admission?: Yes (4) Person under investigation for COVID-19 Is this a current diagnosis for this admission?: Yes (5) Heart failure with reduced ejection fraction Is this a current diagnosis for this admission?: Yes (6) Diabetic foot ulcers Is this a current diagnosis for this admission?: Yes Plan: Add Zosyn/vancomycin. Critical Time Critical Time (minutes): 0 Level of Care: ICU -: 1. The care of a critical patient is a dynamic process. This note is a collections representative synopsis but static in nature. The timeframe for treatments given in order is not necessarily the actual time these treatments may have been done. 2. This patient requires critical care secondary to ongoing requirements for therapy not offered or safe outside the critical care environment. Transfer to a lower level of care will result in altered life or limb morbidity and mortality. 3. Multidisciplinary rounds completed. 4. ABCDE bundle addressed.
[2020-01-05] MEDS ORDERED: GLUCAGON,HUMAN RECOMB 1 MG INJ IM PRN (18:10)
[2020-01-05] MEDS ORDERED: DEXTROSE 50%-WATER 25 GM/50 ML DISP.SYRIN IV PRN ×2 (18:10)
[2020-01-05] MEDS ORDERED: DEXTROSE 40% GEL 15 GM TUBE PO PRN ×2 (18:10)
[2020-01-05 18:35] LABS: ARTERIAL BLOOD BASE EXCESS -4.5 mmol/L; ARTERIAL BLOOD H2CO3 1.21 mmol/L (1.05-1.35); ARTERIAL BLOOD O2 SATURATION 95.8 % (94-98); ARTERIAL BLOOD PCO2 40.2 mmHg (35-45); ARTERIAL BLOOD PH 7.34 (7.35-7.45); ARTERIAL BLOOD PO2 84.9 mmHg (80-100); ARTERIAL BLOOD TOTAL CO2 22.2 mmol/L (21-25)
[2020-01-05 18:38] LABS: ARTERIAL BLOOD FIO2 40%
[2020-01-05] MEDS: INSULIN REG, HUMAN 100 UNIT/ML 3 ML VIAL (PYX) SUBCUT SCH ×2 (18:41→23:59)
[2020-01-05] MEDS: FAMOTIDINE INJ/PF 20 MG/2 ML SDV IV SCH (22:29)
[2020-01-05] MEDS: METHYLPREDNISOLONE INJ 40 MG/1 ML SDV IV SCH (22:29)
[2020-01-06] MEDS: DEXMEDETOMIDINE IN 0.9 % NACL 400 MCG/100 ML RTUPB IV PRN ×3 (01:20→23:30)
[2020-01-06] MEDS ORDERED: DEXMEDETOMIDINE IN 0.9 % NACL 400 MCG/100 ML RTUPB IV ONE (01:22)
[2020-01-06] MEDS: PROPOFOL 1,000 MG/100 ML INFUS..BTL IV PRN ×2 (01:30→18:56)
[2020-01-06] MEDS ORDERED: FENTANYL CITRATE INJ/PF 100 MCG/2 ML AMPUL ONE ×2 (01:33→17:48)
[2020-01-06] MEDS ORDERED: MORPHINE SULFATE 10 MG/ML INJ IV SCH (02:00)
[2020-01-06] MEDS ORDERED: FENTANYL CITRATE INJ/PF 100 MCG/2 ML AMPUL IV ONE ×3 (02:00→18:30)
[2020-01-06] MEDS: IPRATROPIUM/ALBUTEROL 0.5-2.5 MG/3 ML AMPUL NEB SCH ×3 (03:08→13:52)
[2020-01-06 04:14] LABS: ABSOLUTE MONOCYTES (AUTO) 0.9 10^3/uL (0.1-1.4); ABSOLUTE NEUT (AUTO) 10.7 10^3/uL (1.7-8.2); BASOPHILS % (AUTO) 0.3 % (0-2); HEMATOCRIT 38.3 % (36.0-47.0); HEMOGLOBIN 12.8 g/dL (12.0-15.5); LYMPHOCYTES % (AUTO) 14.6 % (13-45); MEAN CORPUSCULAR HEMOGLOBIN 31.6 pg (27.0-33.4); MEAN CORPUSCULAR HGB CONC 33.4 g/dL (32.0-36.0); MEAN CORPUSCULAR VOLUME 94 fl (80-97); MONOCYTES % (AUTO) 6.6 % (3-13); PLATELET COUNT 289 10^3/uL (150-450); RED BLOOD COUNT 4.05 10^6/uL (3.72-5.28); SEGMENTED NEUTROPHILS % (AUTO) 78.5 % (42-78); TOTAL CELLS COUNTED % (AUTO) 100 %; WHITE BLOOD COUNT 13.6 10^3/uL (4.0-10.5)
[2020-01-06] MEDS: ALBUTEROL SULFATE 0.083% NEB 2.5 MG/3 ML AMPUL NEB PRN (04:35)
[2020-01-06 04:50] LABS: ANION GAP 5 (5-19); BLOOD UREA NITROGEN 23 mg/dL (7-20); CARBON DIOXIDE 24 mmol/L (22-30); CHLORIDE 108 mmol/L (98-107); GLUCOSE 145 mg/dL (75-110); PHOSPHORUS 5.8 mg/dL (2.5-4.5); POTASSIUM 5.1 mmol/L (3.6-5.0)
[2020-01-06] MEDS ORDERED: DIAZEPAM INJ 10 MG/2 ML DISP.SYRIN IV ONE (05:14)
[2020-01-06] MEDS ORDERED: DIAZEPAM INJ 10 MG/2 ML DISP.SYRIN ONE (05:16)
[2020-01-06] MEDS ORDERED: IPRATROPIUM BROMIDE 0.02% NEB 0.5 MG/2.5 ML AMPUL NEB ONE ×2 (05:54→05:55)
[2020-01-06] MEDS ORDERED: LEVALBUTEROL HCL NEB 1.25 MG/3 ML AMPUL NEB ONE ×2 (05:54→05:55)
[2020-01-06] MEDS: HEPARIN SOD (PORCINE) 5,000 UNIT/ML 1 ML VIAL SUBCUT SCH ×3 (06:00→22:49)
[2020-01-06] MEDS: INSULIN REG, HUMAN 100 UNIT/ML 3 ML VIAL (PYX) SUBCUT SCH ×4 (06:00→23:53)
[2020-01-06] MEDS ORDERED: MIDAZOLAM 2 MG/2 ML INJ IV ONE ×2 (06:00→12:11)
[2020-01-06] MEDS: METHYLPREDNISOLONE INJ 40 MG/1 ML SDV IV SCH (06:01)
[2020-01-06] MEDS ORDERED: MIDAZOLAM 2 MG/2 ML INJ ONE ×2 (06:02→08:03)
[2020-01-06] MEDS ORDERED: 1/2 NORMAL SALINE 500 ML IV ONE (06:50)
--- NOTE | 2020-01-06 07:15 | RADIOLOGY REPORT (SQ) ---
EXAM: XR Chest, 1 View EXAM DATE/TIME: 01/06/2020 06:25 CLINICAL HISTORY: The patient is 54 years old and is Female; r/o plug, infiltrate, pneumothorax TECHNIQUE: Frontal view of the chest. COMPARISON: Chest radiograph from 01/05/2020 FINDINGS: LUNGS: The lungs are hyperinflated but clear. No consolidation. PLEURAL SPACE: No significant effusion. No obvious pneumothorax. HEART: No significant enlargement of the cardiac silhouette. MEDIASTINUM: Unremarkable. BONES/JOINTS: The bones are unchanged. TUBES, LINES AND DEVICES: Endotracheal tube terminates 3.5 cm above the duane. Enteric tube terminates at the gastroesophageal junction. IMPRESSION: 1. No acute findings visualized in the chest. 2. Enteric tube terminates at the gastroesophageal junction. Recommend advancement.
[2020-01-06] MEDS: LEVALBUTEROL HCL NEB 0.63 MG/3 ML AMPUL NEB SCH ×3 (07:43→08:36)
--- NOTE | 2020-01-06 07:54 | CDI QUERY ---
<LINDA MENDEZ - Last Filed: 01/06/20 07:45> CDI Query CDI Review: Dear Provider, Please document in progress notes and D/C summary to capture severity of illness and resources, if you agree with the clinical findings: ACUTE RESPIRATORY FAILURE, requiring intubation? PULMONARY COLLAPSE requiring intubation? INTUBATION for airway protection due to ? OTHER? Clinical data: REASON FOR ICU= INTUBATION COVID SUSPICION PULMONARY EDEMA possible RESPIRATORY DISTRESS IN ED <GEORGE BALLESTEROS - Last Filed: 01/06/20 12:10> CDI Query Agree with Query: No - insufficient data/documentation from ER to further clarify. changes to Dx will be made in subsequent notes
[2020-01-06] MEDS: FAMOTIDINE INJ/PF 20 MG/2 ML SDV IV SCH ×2 (10:02→22:49)
[2020-01-06] MEDS ORDERED: METHYLPREDNISOLONE INJ 40 MG/1 ML SDV IV SCH ×2 (12:00→18:00)
[2020-01-06] MEDS ORDERED: NORMAL SALINE 1000 ML 1,000 ML IV PRN (12:12)
[2020-01-06] MEDS ORDERED: FENTANYL CITRATE INJ/PF 100 MCG/2 ML AMPUL IV PRN (18:08)
[2020-01-06 18:20] LABS: ARTERIAL BLOOD BASE EXCESS -8.1 mmol/L; ARTERIAL BLOOD H2CO3 1.78 mmol/L (1.05-1.35); ARTERIAL BLOOD HCO3 20.9 mmol/L (20-24); ARTERIAL BLOOD PCO2 59.1 mmHg (35-45); ARTERIAL BLOOD PO2 103.1 mmHg (80-100); ARTERIAL BLOOD TOTAL CO2 22.7 mmol/L (21-25)
[2020-01-06 18:23] LABS: ARTERIAL BLOOD FIO2 40%; ARTERIAL BLOOD PH 7.17 (7.35-7.45)
[2020-01-06] MEDS: ALBUTEROL SULFATE 0.083% NEB 2.5 MG/3 ML AMPUL NEB SCH ×2 (18:39→19:32)
[2020-01-06] MEDS: METHYLPREDNISOLONE INJ 125 MG/2 ML SDV IV SCH ×2 (18:50→23:53)
[2020-01-06] MEDS: BUDESONIDE NEB 0.25 MG/2 ML AMPUL NEB SCH (19:33)
[2020-01-06] MEDS ORDERED: FENTANYL CITRATE/PF 600 MCG/60 ML BAG IV PRN (20:57)
[2020-01-07] MEDS: ALBUTEROL SULFATE 0.083% NEB 2.5 MG/3 ML AMPUL NEB SCH ×6 (00:16→20:31)
[2020-01-07] MEDS ORDERED: DEXMEDETOMIDINE IN 0.9 % NACL 400 MCG/100 ML RTUPB IV ONE (00:53)
[2020-01-07] MEDS: FENTANYL CITRATE/PF 600 MCG/60 ML BAG IV PRN ×2 (01:05→10:00)
[2020-01-07] MEDS: ALBUTEROL SULFATE 0.083% NEB 2.5 MG/3 ML AMPUL NEB PRN (02:13)
[2020-01-07 03:45] LABS: ABSOLUTE LYMPHOCYTES (AUTO) 0.7 10^3/uL (0.5-4.7); ABSOLUTE MONOCYTES (AUTO) 0.3 10^3/uL (0.1-1.4); BASOPHILS % (AUTO) 0.3 % (0-2); HEMATOCRIT 31.4 % (36.0-47.0); LYMPHOCYTES % (AUTO) 6.5 % (13-45); MEAN CORPUSCULAR HEMOGLOBIN 32.2 pg (27.0-33.4); MEAN CORPUSCULAR HGB CONC 34.1 g/dL (32.0-36.0); MEAN CORPUSCULAR VOLUME 94 fl (80-97); MONOCYTES % (AUTO) 3.1 % (3-13); PLATELET COUNT 246 10^3/uL (150-450); RED BLOOD COUNT 3.33 10^6/uL (3.72-5.28); SEGMENTED NEUTROPHILS % (AUTO) 90.1 % (42-78); TOTAL CELLS COUNTED % (AUTO) 100 %; WHITE BLOOD COUNT 11.2 10^3/uL (4.0-10.5)
[2020-01-07 03:47] LABS: HEMOGLOBIN 10.7 g/dL (12.0-15.5)
[2020-01-07 04:00] LABS: ANION GAP 5 (5-19); BLOOD UREA NITROGEN 27 mg/dL (7-20); CALCIUM 8.8 mg/dL (8.4-10.2); CARBON DIOXIDE 23 mmol/L (22-30); CHLORIDE 109 mmol/L (98-107); GLUCOSE 162 mg/dL (75-110)
[2020-01-07 04:13] LABS: POTASSIUM 3.7 mmol/L (3.6-5.0)
[2020-01-07 05:33] LABS: ARTERIAL BLOOD BASE EXCESS -2.3 mmol/L; ARTERIAL BLOOD HCO3 23.9 mmol/L (20-24); ARTERIAL BLOOD O2 SATURATION 96.2 % (94-98); ARTERIAL BLOOD PCO2 46.6 mmHg (35-45); ARTERIAL BLOOD PH 7.33 (7.35-7.45); ARTERIAL BLOOD PO2 89.5 mmHg (80-100); ARTERIAL BLOOD TOTAL CO2 25.3 mmol/L (21-25)
[2020-01-07 05:34] LABS: ARTERIAL BLOOD FIO2 30%
[2020-01-07] MEDS: METHYLPREDNISOLONE INJ 125 MG/2 ML SDV IV SCH ×3 (05:47→18:30)
[2020-01-07] MEDS: HEPARIN SOD (PORCINE) 5,000 UNIT/ML 1 ML VIAL SUBCUT SCH ×3 (05:47→22:17)
[2020-01-07] MEDS: PROPOFOL 1,000 MG/100 ML INFUS..BTL IV PRN (05:48)
[2020-01-07] MEDS: INSULIN REG, HUMAN 100 UNIT/ML 3 ML VIAL (PYX) SUBCUT SCH ×3 (05:48→17:59)
[2020-01-07] MEDS: BUDESONIDE NEB 0.25 MG/2 ML AMPUL NEB SCH ×2 (08:01→20:31)
--- NOTE | 2020-01-07 08:22 | RADIOLOGY REPORT (SQ) ---
EXAM DESCRIPTION: CHEST SINGLE VIEW IMAGES COMPLETED DATE/TIME: 01/07/2020 7:02 am REASON FOR STUDY: ETT tube COMPARISON: 01/06/2020 NUMBER OF VIEWS: One view. TECHNIQUE: Single frontal radiographic image of the chest acquired. LIMITATIONS: None. FINDINGS: LUNGS AND PLEURA: Stable appearance. MEDIASTINUM AND HILAR STRUCTURES: Stable heart size and mediastinal structures. HEART AND VASCULAR STRUCTURES: Stable appearance. SUPPORT DEVICES: Appropriate location without change. BONES: No acute findings. OTHER: No other significant finding. IMPRESSION: STABLE APPEARANCE OF THE CHEST. SUPPORT DEVICES UNCHANGED. TECHNICAL DOCUMENTATION: JOB ID: [id number] 2010 [employer]- All Rights Reserved Reading location - IP/workstation name: [email or web address]
[2020-01-07] MEDS: FAMOTIDINE INJ/PF 20 MG/2 ML SDV IV SCH ×2 (10:00→22:17)
[2020-01-07] MEDS: DEXMEDETOMIDINE IN 0.9 % NACL 400 MCG/100 ML RTUPB IV PRN ×2 (11:08→21:15)
[2020-01-07] MEDS ORDERED: POTASSI CL 20 MEQ/50 ML RIDER 20 MEQ/50 ML RTUPB IV ONE (11:48)
--- NOTE | 2020-01-07 11:50 | PDOC CRITICAL CARE PROG REPORT ---
General Date:: 01/06/20 ICU Day:: 2 Ventilator Day:: 2 Hospital Day:: 2 Resuscitation Status: Full Code Events in the past 12 to 24 Hours:: 01/05: This 54-year-old female smoker was admitted through the ER yesterday after experiencing respiratory distress. She was intubated in the emergency department. Of note, CBC revealed peripheral eosinophilia. The patient denies history of asthma. proBNP was within normal limits. Remains intubated. Audible wheezing on exam. Had a bronchospastic event earlier this morning just before change of shift. Reason for ICU Addmission:: endotracheal intubation - Medications: Medications reviewed and adjusted accordingly: Yes Physical Exam Vital Signs: Temp Pulse Resp BP Pulse Ox 100.2 F 117 H 27 H 100/62 100 01/06/20 12:00 01/06/20 12:00 01/06/20 12:00 01/06/20 12:00 01/06/20 12:00 Intake & Output 01/05/20 01/06/20 01/07/20 06:59 06:59 06:59 Intake Total 2 404 21 Output Total 1495 230 Balance 2 -1091 -209 Weight 49.7 kg 49.4 kg Weight/Height Weight 49.4 kg Height 1.52 m General appearance: PRESENT: no acute distress, well-developed, well-nourished Head exam: PRESENT: atraumatic, normocephalic Mouth exam: PRESENT: moist, tongue midline Neck exam: ABSENT: carotid bruit, JVD, lymphadenopathy, thyromegaly Respiratory exam: PRESENT: prolonged expiratory phas, wheezes. ABSENT: rales, rhonchi Cardiovascular exam: PRESENT: RRR. ABSENT: diastolic murmur, rubs, systolic murmur Pulses: PRESENT: normal dorsalis pedis pul GI/Abdominal exam: PRESENT: normal bowel sounds, soft. ABSENT: distended, guarding, mass, organolmegaly, rebound, tenderness Extremities exam: PRESENT: full ROM. ABSENT: calf tenderness, clubbing, pedal edema Musculoskeletal exam: PRESENT: normal inspection. ABSENT: deformity Neurological exam: PRESENT: awake, CN II-XII grossly intact. ABSENT: motor sensory deficit Psychiatric exam: PRESENT: agitated, anxious Skin exam: PRESENT: dry, intact, warm. ABSENT: cyanosis, rash Tubes/Lines: PRESENT: Endotracheal Tube Laboratory/Radiographs Laboratory Results: 01/06/20 03:59 01/06/20 03:59 01/05/20 01/06/20 01/06/20 18:20 03:59 03:59 WBC 13.6 H RBC 4.05 Hgb 12.8 Hct 38.3 MCV 94 MCH 31.6 MCHC 33.4 RDW 14.0 Plt Count 289 Seg Neutrophils % 78.5 H Carbonic Acid 1.21 HCO3/H2CO3 Ratio 17:1 ABG pH 7.34 L ABG pCO2 40.2 ABG pO2 84.9 ABG HCO3 21.0 ABG O2 Saturation 95.8 ABG Base Excess -4.5 FiO2 40% Sodium 137.4 Potassium 5.1 H Chloride 108 H Carbon Dioxide 24 Anion Gap 5 BUN 23 H Creatinine 0.93 Est GFR ( Amer) > 60 Glucose 145 H Calcium 9.0 Phosphorus 5.8 H Magnesium 2.0 D Triglycerides 01/06/20 03:59 WBC RBC Hgb Hct MCV MCH MCHC RDW Plt Count Seg Neutrophils % Carbonic Acid HCO3/H2CO3 Ratio ABG pH ABG pCO2 ABG pO2 ABG HCO3 ABG O2 Saturation ABG Base Excess FiO2 Sodium Potassium Chloride Carbon Dioxide Anion Gap BUN Creatinine Est GFR ( Amer) Glucose Calcium Phosphorus Magnesium Triglycerides 173 H 01/05/20 01/05/20 01/05/20 05:11 05:11 05:11 Creatine Kinase 110 Troponin I 0.019 NT-Pro-B Natriuret Pep 91 Impressions: KUB X-Ray 01/05/20 13:57 IMPRESSION: NG tube is been advanced compared to the earlier film. Mild gastric distention previously noted has resolved. Chest X-Ray 01/06/20 06:25 IMPRESSION: 1. No acute findings visualized in the chest. 2. Enteric tube terminates at the gastroesophageal junction. Recommend advancement. All labs, radiographs, diagnostic studies and EKGs were personally reviewed: Yes In addition, reports of radiographic and diagnostic studies were read: Yes Assessment and Plan - Diagnosis (1) Endotracheally intubated Is this a current diagnosis for this admission?: Yes Plan: Based on clinical events, it appears that this patient likely has bronchospastic events and associated acute hypercapnic respiratory failure. However, no clinical or laboratory data has been documented to definitively identify acute respiratory failure. Increase steroids. Solu-Medrol 40 mg IV every 6 hours. Pressure support ventilation 15/. Start tube feeds. Sedation with propofol/Precedex/morphine. (2) Acute exacerbation of emphysema Is this a current diagnosis for this admission?: Yes Plan: Increase steroids. Continue duo nebs and albuterol as needed. (3) Peripheral eosinophilia Is this a current diagnosis for this admission?: Yes Plan: Serum total IgE pending. (4) Person under investigation for COVID-19 Is this a current diagnosis for this admission?: Yes (5) Heart failure with reduced ejection fraction Is this a current diagnosis for this admission?: Yes Plan Summary: Diabetic foot ulcers was INCORRECTLY documented on this patient's previous report. Critical Time Critical Time (minutes): 60 Level of Care: ICU -: 1. The care of a critical patient is a dynamic process. This note is a nutrition representative synopsis but static in nature. The timeframe for treatments given in order is not necessarily the actual time these treatments may have been done. 2. This patient requires critical care secondary to ongoing requirements for therapy not offered or safe outside the critical care environment. Transfer to a lower level of care will result in altered life or limb morbidity and mortality. 3. Multidisciplinary rounds completed. 4. ABCDE bundle addressed.
[2020-01-07] MEDS ORDERED: POTASSIUM CHLORIDE 20 MEQ PACKET NG ONE (13:16)
--- NOTE | 2020-01-07 16:07 | PDOC CRITICAL CARE PROG REPORT ---
General Date:: 01/07/20 ICU Day:: 3 Ventilator Day:: 3 Hospital Day:: 3 Resuscitation Status: Full Code Events in the past 12 to 24 Hours:: 01/05: This 54-year-old female smoker was admitted through the ER yesterday after experiencing respiratory distress. She was intubated in the emergency department. Of note, CBC revealed peripheral eosinophilia. The patient denies history of asthma. proBNP was within normal limits. Remains intubated. Audible wheezing on exam. Had a bronchospastic event earlier this morning just before change of shift. 01/06: Remains intubated. Sedation is much better. Diffuse wheezes despite positive pressure breathing. On propofol, Precedex and fentanyl for sedation. Review of systems relevant to events:: Respiratory: Respiratory distress, wheezes Reason for ICU Addmission:: endotracheal intubation - Medications: Medications reviewed and adjusted accordingly: Yes Physical Exam Vital Signs: Temp Pulse Resp BP Pulse Ox 97.7 F 106 H 12 95/58 L 98 01/07/20 08:00 01/07/20 08:07 01/07/20 10:00 01/07/20 08:00 01/07/20 10:00 Intake & Output 01/06/20 01/07/20 01/08/20 06:59 06:59 06:59 Intake Total 404 1503 100 Output Total 1495 605 75 Balance -1091 898 25 Weight 49.4 kg 50.8 kg Weight/Height Weight 50.8 kg Height 1.52 m General appearance: PRESENT: no acute distress, well-developed, well-nourished Head exam: PRESENT: atraumatic, normocephalic Eye exam: PRESENT: conjunctiva pink, EOMI, PERRLA. ABSENT: scleral icterus Mouth exam: PRESENT: moist, tongue midline Neck exam: ABSENT: carotid bruit, JVD, lymphadenopathy, thyromegaly Respiratory exam: PRESENT: prolonged expiratory phas, wheezes. ABSENT: rales, rhonchi Cardiovascular exam: PRESENT: RRR, tachycardia. ABSENT: diastolic murmur, rubs, systolic murmur Pulses: PRESENT: normal dorsalis pedis pul GI/Abdominal exam: PRESENT: normal bowel sounds, soft. ABSENT: distended, guarding, mass, organolmegaly, rebound, tenderness Rectal exam: PRESENT: deferred Extremities exam: PRESENT: full ROM. ABSENT: calf tenderness, clubbing, pedal edema Musculoskeletal exam: PRESENT: normal inspection. ABSENT: deformity Neurological exam: PRESENT: CN II-XII grossly intact, other - Sedated. Arousable. Follows commands.. ABSENT: motor sensory deficit Psychiatric exam: ABSENT: agitated, anxious Skin exam: PRESENT: dry, intact, warm. ABSENT: cyanosis, rash Tubes/Lines: PRESENT: Endotracheal Tube Laboratory/Radiographs Laboratory Results: 01/07/20 03:25 01/07/20 03:25 01/06/20 01/07/20 01/07/20 18:00 03:25 03:25 WBC 11.2 H RBC 3.33 L Hgb 10.7 L D Hct 31.4 L MCV 94 MCH 32.2 MCHC 34.1 RDW 14.0 Plt Count 246 Seg Neutrophils % 90.1 H Carbonic Acid 1.78 H HCO3/H2CO3 Ratio 11:1 ABG pH 7.17 L* ABG pCO2 59.1 H ABG pO2 103.1 H ABG HCO3 20.9 ABG O2 Saturation 96.0 ABG Base Excess -8.1 FiO2 40% Sodium 137.3 Potassium 3.7 D Chloride 109 H Carbon Dioxide 23 Anion Gap 5 BUN 27 H Creatinine 0.69 Est GFR ( Amer) > 60 Glucose 162 H Calcium 8.8 Phosphorus 3.0 D Magnesium 2.1 01/07/20 04:55 WBC RBC Hgb Hct MCV MCH MCHC RDW Plt Count Seg Neutrophils % Carbonic Acid 1.40 H HCO3/H2CO3 Ratio 17:1 ABG pH 7.33 L ABG pCO2 46.6 H ABG pO2 89.5 ABG HCO3 23.9 ABG O2 Saturation 96.2 ABG Base Excess -2.3 FiO2 30% Sodium Potassium Chloride Carbon Dioxide Anion Gap BUN Creatinine Est GFR ( Amer) Glucose Calcium Phosphorus Magnesium 01/05/20 20:20 Tracheal Aspirate Gram Stain - Final 01/05/20 20:20 Tracheal Aspirate Sputum Culture - Final NORMAL UDAY 01/05/20 01/05/20 01/05/20 05:11 05:11 05:11 Creatine Kinase 110 Troponin I 0.019 NT-Pro-B Natriuret Pep 91 01/06/20 01/06/20 01/07/20 03:59 18:35 03:25 Creatine Kinase Troponin I NT-Pro-B Natriuret Pep Cancelled 2340 H 2009 H Impressions: KUB X-Ray 01/05/20 13:57 IMPRESSION: NG tube is been advanced compared to the earlier film. Mild gastric distention previously noted has resolved. Chest X-Ray 01/07/20 05:00 IMPRESSION: STABLE APPEARANCE OF THE CHEST. SUPPORT DEVICES UNCHANGED. All labs, radiographs, diagnostic studies and EKGs were personally reviewed: Yes In addition, reports of radiographic and diagnostic studies were read: Yes Assessment and Plan - Diagnosis (1) Acute respiratory failure with hypercapnia Is this a current diagnosis for this admission?: Yes Plan: Based on clinical events, it appears that this patient likely has bronchospastic events and associated acute hypercapnic respiratory failure. However, no clinical or laboratory data has been documented to definitively identify acute respiratory failure. Continue Solu-Medrol 60 mg IV every 6 hours. Sedation with propofol/Precedex/morphine. (2) Acute exacerbation of emphysema Is this a current diagnosis for this admission?: Yes Plan: Increase steroids. Continue duo nebs and albuterol as needed. (3) Peripheral eosinophilia Is this a current diagnosis for this admission?: Yes Plan: Serum total IgE pending. Peripheral eosinophilia resolved with initiation of steroid therapy. (4) CHF exacerbation Qualifiers: Heart failure type: systolic Qualified Code(s): I50.23 - Acute on chronic systolic (congestive) heart failure Is this a current diagnosis for this admission?: Yes (5) Heart failure with reduced ejection fraction Is this a current diagnosis for this admission?: Yes Plan: 11/30/2019: 2D echo 10/20/2019: 2D echo (10/20/2019): LVEF 30-35%. Avoid volume overload. (6) COVID-19 ruled out by laboratory testing Is this a current diagnosis for this admission?: Yes Critical Time Critical Time (minutes): 60 Level of Care: ICU -: 1. The care of a critical patient is a dynamic process. This note is a personal banking representative synopsis but static in nature. The timeframe for treatments g iven in order is not necessarily the actual time these treatments may have been done. 2. This patient requires critical care secondary to ongoing requirements for therapy not offered or safe outside the critical care environment. Transfer to a lower level of care will result in altered life or limb morbidity and mortality. 3. Multidisciplinary rounds completed. 4. ABCDE bundle addressed.
--- NOTE | 2020-01-07 16:47 | Progress Note ---
Provider Note Provider Note: The patient self extubated. Audibly wheezing, but the patient states that she "always wheezes". Respiratory rate 10. SPO2 100% on 2 LPM via nasal cannula. On exam, diffuse bilateral high-pitched wheezes. No tripoding. We will monitor.
[2020-01-07] MEDS ORDERED: LORAZEPAM INJ 2 MG/1 ML VIAL ONE (18:26)
[2020-01-07] MEDS ORDERED: BUSPIRONE HCL 10 MG TABLET PO ONE (18:30)
[2020-01-07] MEDS ORDERED: DOXEPIN HCL 25 MG CAPSULE PO ONE (18:30)
[2020-01-07] MEDS ORDERED: TRAZODONE HCL 50 MG TABLET PO ONE (18:30)
[2020-01-07] MEDS ORDERED: METHYLPREDNISOLONE INJ 125 MG/2 ML SDV IV SCH (18:30)
[2020-01-07] MEDS ORDERED: LORAZEPAM INJ 2 MG/1 ML VIAL IV ONE (18:45)
[2020-01-07] MEDS: FLUOXETINE HCL 20 MG CAPSULE PO SCH (18:53)
[2020-01-07] MEDS ORDERED: BUDESONIDE NEB 0.25 MG/2 ML AMPUL NEB SCH (20:00)
[2020-01-07] MEDS: GABAPENTIN 100 MG CAPSULE PO SCH (22:08)
[2020-01-08] MEDS: INSULIN REG, HUMAN 100 UNIT/ML 3 ML VIAL (PYX) SUBCUT SCH ×2 (00:21→05:38)
[2020-01-08] MEDS: METHYLPREDNISOLONE INJ 125 MG/2 ML SDV IV SCH ×2 (00:21→06:40)
[2020-01-08] MEDS: ALBUTEROL SULFATE 0.083% NEB 2.5 MG/3 ML AMPUL NEB SCH ×7 (00:33→23:54)
[2020-01-08 04:25] LABS: BLOOD UREA NITROGEN 31 mg/dL (7-20); CALCIUM 9.1 mg/dL (8.4-10.2); GLUCOSE 139 mg/dL (75-110); PHOSPHORUS 3.6 mg/dL (2.5-4.5); POTASSIUM 4.7 mmol/L (3.6-5.0)
[2020-01-08 04:28] LABS: ARTERIAL BLOOD BASE EXCESS -3.3 mmol/L; ARTERIAL BLOOD H2CO3 1.26 mmol/L (1.05-1.35); ARTERIAL BLOOD HCO3 22.3 mmol/L (20-24); ARTERIAL BLOOD O2 SATURATION 97.5 % (94-98); ARTERIAL BLOOD PH 7.34 (7.35-7.45); ARTERIAL BLOOD PO2 104.6 mmHg (80-100); ARTERIAL BLOOD TOTAL CO2 23.5 mmol/L (21-25)
[2020-01-08 04:29] LABS: ARTERIAL BLOOD FIO2 28%
[2020-01-08 04:30] LABS: CARBON DIOXIDE 25 mmol/L (22-30); CHLORIDE 108 mmol/L (98-107)
[2020-01-08 04:32] LABS: ANION GAP 4 (5-19)
[2020-01-08] MEDS: DEXMEDETOMIDINE IN 0.9 % NACL 400 MCG/100 ML RTUPB IV PRN (06:24)
[2020-01-08] MEDS: GABAPENTIN 100 MG CAPSULE PO SCH ×2 (06:39→15:44)
[2020-01-08] MEDS: HEPARIN SOD (PORCINE) 5,000 UNIT/ML 1 ML VIAL SUBCUT SCH ×3 (06:40→21:17)
[2020-01-08] MEDS: BUDESONIDE NEB 0.25 MG/2 ML AMPUL NEB SCH ×2 (08:57→19:55)
--- NOTE | 2020-01-08 08:57 | RADIOLOGY REPORT (SQ) ---
EXAM DESCRIPTION: CHEST SINGLE VIEW IMAGES COMPLETED DATE/TIME: 01/08/2020 6:26 am REASON FOR STUDY: ETT tube COMPARISON: 01/07/2020 EXAM PARAMETERS: NUMBER OF VIEWS: One view. TECHNIQUE: Single frontal radiographic view of the chest acquired. RADIATION DOSE: NA LIMITATIONS: None. FINDINGS: LUNGS AND PLEURA: Stable pulmonary exam with blunting of the costophrenic angles. No pneu mothorax. MEDIASTINUM AND HILAR STRUCTURES: Stable. HEART AND VASCULAR STRUCTURES: Heart normal in size. Normal vasculature. BONES: No acute findings. HARDWARE: Interval extubation and enteric tube removal. OTHER: No other significant finding. IMPRESSION: Interval extubation and enteric tube removal. Otherwise stable radiographic appearance of the chest. TECHNICAL DOCUMENTATION: JOB ID: [id number] 2010 [employer]- All Rights Reserved Reading location - IP/workstation name: [email or web address]
[2020-01-08] MEDS ORDERED: LORAZEPAM INJ 2 MG/1 ML VIAL IV ONE (09:31)
[2020-01-08] MEDS ORDERED: LORAZEPAM INJ 2 MG/1 ML VIAL ONE (09:32)
[2020-01-08] MEDS: FAMOTIDINE INJ/PF 20 MG/2 ML SDV IV SCH ×2 (09:39→21:17)
[2020-01-08] MEDS: FLUOXETINE HCL 20 MG CAPSULE PO SCH (09:39)
[2020-01-08] MEDS ORDERED: DOXEPIN HCL 25 MG CAPSULE PO PRN (10:41)
[2020-01-08] MEDS ORDERED: TRAZODONE HCL 50 MG TABLET PO PRN (10:50)
[2020-01-08] MEDS: METHYLPREDNISOLONE INJ 40 MG/1 ML SDV IV SCH ×3 (11:39→23:58)
[2020-01-08] MEDS ORDERED: METHYLPREDNISOLONE INJ 125 MG/2 ML SDV IV SCH (12:00)
[2020-01-08] MEDS ORDERED: LORAZEPAM INJ 2 MG/1 ML VIAL IV PRN (13:24)
--- NOTE | 2020-01-08 13:40 | PDOC CRITICAL CARE PROG REPORT ---
General Date:: 01/08/20 ICU Day:: 4 Hospital Day:: 4 Resuscitation Status: Full Code Events in the past 12 to 24 Hours:: 01/05: This 54-year-old female smoker was admitted through the ER yesterday after experiencing respiratory distress. She was intubated in the emergency department. Of note, CBC revealed peripheral eosinophilia. The patient denies history of asthma. proBNP was within normal limits. Remains intubated. Audible wheezing on exam. Had a bronchospastic event earlier this morning just before change of shift. 01/06: Remains intubated. Sedation is much better. Diffuse wheezes despite positive pressure breathing. On propofol, Precedex and fentanyl for sedation. 01/07: The patient self extubated in the interim. SPO2 100% on 2 LPM via nasal cannula. However, the patient does demonstrate frequent anxiety attacks and reports feeling like she cannot breathe. She remains hemodynamically stable during these events. She was placed on BiPAP overnight. Also, she previously refused taking her Prozac, Sinequan, BuSpar, Desyrel. She was able to rest comfortably after getting Ativan IV. This morning, she did agree to take her Prozac. Serum total IgE level is still pending. Review of systems relevant to events:: Respiratory: Respiratory distress, wheezes Reason for ICU Addmission:: endotracheal intubation - Medications: Medications reviewed and adjusted accordingly: Yes Physical Exam Vital Signs: Temp Pulse Resp BP Pulse Ox 98.8 F 92 16 154/94 H 100 01/07/20 16:00 01/08/20 08:57 01/08/20 10:00 01/08/20 09:48 01/08/20 10:00 Intake & Output 01/07/20 01/08/20 01/09/20 06:59 06:59 06:59 Intake Total 1503 398 Output Total 605 595 190 Balance 898 -197 -190 Weight 50.8 kg 50.9 kg Weight/Height Weight 50.9 kg Height 1.52 m General appearance: PRESENT: no acute distress, thin, well-developed, well- nourished, other - On BiPAP Head exam: PRESENT: atraumatic, normocephalic Eye exam: PRESENT: conjunctiva pink, EOMI, PERRLA. ABSENT: scleral icterus Mouth exam: PRESENT: dry mucosa, tongue midline Neck exam: ABSENT: carotid bruit, JVD, lymphadenopathy, thyromegaly Respiratory exam: PRESENT: prolonged expiratory phas, wheezes. ABSENT: rales, rhonchi Cardiovascular exam: PRESENT: RRR, tachycardia. ABSENT: diastolic murmur, rubs, systolic murmur Pulses: PRESENT: normal dorsalis pedis pul GI/Abdominal exam: PRESENT: normal bowel sounds, soft. ABSENT: distended, guarding, mass, organolmegaly, rebound, tenderness Extremities exam: PRESENT: full ROM. ABSENT: calf tenderness, clubbing, pedal edema Neurological exam: PRESENT: alert, awake, oriented to person, oriented to place, oriented to situation, CN II-XII grossly intact. ABSENT: motor sensory deficit Psychiatric exam: PRESENT: agitated, anxious, other - Labile affect. ABSENT: homicidal ideation, suicidal ideation Skin exam: PRESENT: dry, intact, warm. ABSENT: cyanosis, rash Laboratory/Radiographs Laboratory Results: 01/07/20 03:25 01/08/20 03:47 01/08/20 01/08/20 03:47 04:00 Carbonic Acid 1.26 HCO3/H2CO3 Ratio 17:1 ABG pH 7.34 L ABG pCO2 42.0 ABG pO2 104.6 H ABG HCO3 22.3 ABG O2 Saturation 97.5 ABG Base Excess -3.3 FiO2 28% Sodium 137.1 Potassium 4.7 Chloride 108 H Carbon Dioxide 25 Anion Gap 4 L BUN 31 H Creatinine 0.60 Est GFR ( Amer) > 60 Glucose 139 H Calcium 9.1 Phosphorus 3.6 Magnesium 2.2 01/05/20 22:40 Estrada Catheter Urine Culture - Final NO GROWTH 2 DAYS 01/05/20 20:20 Tracheal Aspirate Gram Stain - Final 01/05/20 20:20 Tracheal Aspirate Sputum Culture - Final NORMAL UDAY 01/05/20 01/05/20 01/05/20 05:11 05:11 05:11 Creatine Kinase 110 Troponin I 0.019 NT-Pro-B Natriuret Pep 91 01/06/20 01/06/20 01/07/20 03:59 18:35 03:25 Creatine Kinase Troponin I NT-Pro-B Natriuret Pep Cancelled 2340 H 2010 H Impressions: KUB X-Ray 01/05/20 13:57 IMPRESSION: NG tube is been advanced compared to the earlier film. Mild gastric distention previously noted has resolved. Chest X-Ray 01/08/20 05:00 IMPRESSION: Interval extubation and enteric tube removal. Otherwise stable radiographic appearance of the chest. All labs, radiographs, diagnostic studies and EKGs were personally reviewed: Yes In addition, reports of radiographic and diagnostic studies were read: Yes Assessment and Plan - Diagnosis (1) Acute respiratory failure with hypercapnia Is this a current diagnosis for this admission?: Yes Plan: Based on clinical events, it appears that this patient likely has bronchospastic events and associated acute hypercapnic respiratory failure. However, no clinical or laboratory data has been documented to definitively identify acute respiratory failure. Decrease Solu-Medrol to 40 mg IV every 6 hours. Of note, her "respiratory distress" has a significant psychiatric component. ABG should be obtained in the event of respiratory distress. (2) Psychomotor agitation Is this a current diagnosis for this admission?: Yes Plan: Decrease Solu-Medrol, as above. Ativan 1 mg IV single dose. Restart Prozac 40 mg p.o. daily, Sinequan (doxepin) 25 mg p.o. nightly, BuSpar 10 mg p.o. every 12 hours, Desyrel (trazodone) 50 mg p.o. nightly as needed. (3) Acute exacerbation of emphysema Is this a current diagnosis for this admission?: Yes Plan: Decrease steroids. Continue duo nebs and albuterol as needed. (4) Peripheral eosinophilia Is this a current diagnosis for this admission?: Yes Plan: Serum total IgE pending. Peripheral eosinophilia resolved with initiation of steroid therapy. (5) CHF exacerbation Qualifiers: Heart failure type: systolic Qualified Code(s): I50.23 - Acute on chronic systolic (congestive) heart failure Is this a current diagnosis for this admission?: Yes (6) Heart failure with reduced ejection fraction Is this a current diagnosis for this admission?: Yes (7) COVID-19 ruled out by clinical criteria Is this a current diagnosis for this admission?: Yes Plan Summary: OK for the floor from pulmonary standpoint. Critical Time Critical Time (minutes): 45 Level of Care: ICU -: 1. The care of a critical patient is a dynamic process. This note is a passenger relations representative synopsis but static in nature. The timeframe for treatments given in order is not necessarily the actual time these treatments may have been done. 2. This patient requires critical care secondary to ongoing requirements for therapy not offered or safe outside the critical care environment. Transfer to a lower level of care will result in altered life or limb morbidity and mortality. 3. Multidisciplinary rounds completed. 4. ABCDE bundle addressed.
[2020-01-08] MEDS: METOPROLOL SUCCINATE 50 MG TAB.SR.24H PO SCH (15:42)
[2020-01-08] MEDS ORDERED: FUROSEMIDE INJ/PF 20 MG/2 ML SDV IV ONE (17:00)
[2020-01-08] MEDS: ACETAMINOPHEN 325 MG TABLET PO PRN (18:24)
[2020-01-08] MEDS: BUSPIRONE HCL 10 MG TABLET PO SCH (21:16)
[2020-01-08] MEDS: AMOXICILLIN TR/POT CLAVULANATE 875-125 MG TAB PO SCH (21:16)
[2020-01-08] MEDS: ALBUTEROL SULFATE 0.083% NEB 2.5 MG/3 ML AMPUL NEB PRN (22:17)
[2020-01-09] MEDS: ALBUTEROL SULFATE 0.083% NEB 2.5 MG/3 ML AMPUL NEB SCH ×6 (03:02→23:56)
[2020-01-09 04:00] LABS: ANION GAP 10 (5-19); BLOOD UREA NITROGEN 30 mg/dL (7-20); CALCIUM 9.2 mg/dL (8.4-10.2); CARBON DIOXIDE 23 mmol/L (22-30); CHLORIDE 106 mmol/L (98-107); GLUCOSE 122 mg/dL (75-110); POTASSIUM 4.4 mmol/L (3.6-5.0)
[2020-01-09 04:09] LABS: ABSOLUTE LYMPHOCYTES (AUTO) 1.1 10^3/uL (0.5-4.7); ABSOLUTE MONOCYTES (AUTO) 0.8 10^3/uL (0.1-1.4); ABSOLUTE NEUT (AUTO) 17.2 10^3/uL (1.7-8.2); BASOPHILS % (AUTO) 0.1 % (0-2); HEMATOCRIT 35.2 % (36.0-47.0); HEMOGLOBIN 11.8 g/dL (12.0-15.5); LYMPHOCYTES % (AUTO) 5.5 % (13-45); MEAN CORPUSCULAR HEMOGLOBIN 31.6 pg (27.0-33.4); MEAN CORPUSCULAR HGB CONC 33.5 g/dL (32.0-36.0); MEAN CORPUSCULAR VOLUME 94 fl (80-97); MONOCYTES % (AUTO) 4.4 % (3-13); PLATELET COUNT 313 10^3/uL (150-450); RED BLOOD COUNT 3.74 10^6/uL (3.72-5.28); RED CELL DISTRIBUTION WIDTH 14.5 % (11.5-14.0); TOTAL CELLS COUNTED % (AUTO) 100 %; WHITE BLOOD COUNT 19.2 10^3/uL (4.0-10.5)
[2020-01-09] MEDS: METHYLPREDNISOLONE INJ 40 MG/1 ML SDV IV SCH ×3 (05:07→22:07)
[2020-01-09] MEDS: AMOXICILLIN TR/POT CLAVULANATE 875-125 MG TAB PO SCH ×2 (05:07→18:08)
[2020-01-09] MEDS: HEPARIN SOD (PORCINE) 5,000 UNIT/ML 1 ML VIAL SUBCUT SCH ×3 (05:07→22:08)
[2020-01-09] MEDS: ALBUTEROL SULFATE 0.083% NEB 2.5 MG/3 ML AMPUL NEB PRN (05:49)
--- NOTE | 2020-01-09 08:17 | RADIOLOGY REPORT (SQ) ---
EXAM DESCRIPTION: CHEST SINGLE VIEW IMAGES COMPLETED DATE/TIME: 01/09/2020 5:10 am REASON FOR STUDY: ETT tube COMPARISON: [facility] chest 01/08/2020, 01/07/2020 CT lung cancer screening 10/10/2019 EXAM PARAMETERS: NUMBER OF VIEWS: One view. TECHNIQUE: Single frontal radiographic view of the chest acquired. RADIATION DOSE: NA LIMITATIONS: None. FINDINGS: LUNGS AND PLEURA: Lungs are hyperlucent from obstructive disease. No focal infiltrates. No pleural effusion or pneumothorax. MEDIASTINUM AND HILAR STRUCTURES: No masses. Contour normal. HEART AND VASCULAR STRUCTURES: Heart normal in size. Normal vasculature. BONES: No acute findings. HARDWARE: None in the chest. OTHER: No other significant finding. IMPRESSION: Obstructive lung disease. No acute infiltrates. TECHNICAL DOCUMENTATION: JOB ID: [id number] 2010 [employer]- All Rights Reserved Reading location - IP/workstation name: [email or web address]
[2020-01-09] MEDS: BUDESONIDE NEB 0.25 MG/2 ML AMPUL NEB SCH ×2 (08:40→20:41)
[2020-01-09] MEDS ORDERED: FUROSEMIDE INJ/PF 40 MG/4 ML SDV IV ONE (09:00)
[2020-01-09] MEDS: SPIRONOLACTONE 25 MG TABLET PO SCH (09:08)
[2020-01-09] MEDS: BUSPIRONE HCL 10 MG TABLET PO SCH ×2 (09:08→22:08)
[2020-01-09] MEDS: FAMOTIDINE INJ/PF 20 MG/2 ML SDV IV SCH ×2 (09:08→22:07)
[2020-01-09] MEDS: METOPROLOL SUCCINATE 50 MG TAB.SR.24H PO SCH (09:08)
[2020-01-09] MEDS: FLUOXETINE HCL 20 MG CAPSULE PO SCH (09:08)
--- NOTE | 2020-01-09 13:56 | PDOC CRITICAL CARE PROG REPORT ---
General Date:: 01/09/20 ICU Day:: 5 Hospital Day:: 5 Resuscitation Status: Full Code Events in the past 12 to 24 Hours:: 01/05: This 54-year-old female smoker was admitted through the ER yesterday after experiencing respiratory distress. She was intubated in the emergency department. Of note, CBC revealed peripheral eosinophilia. The patient denies history of asthma. proBNP was within normal limits. Remains intubated. Audible wheezing on exam. Had a bronchospastic event earlier this morning just before change of shift. 01/06: Remains intubated. Sedation is much better. Diffuse wheezes despite positive pressure breathing. On propofol, Precedex and fentanyl for sedation. 01/07: The patient self extubated in the interim. SPO2 100% on 2 LPM via nasal cannula. However, the patient does demonstrate frequent anxiety attacks and reports feeling like she cannot breathe. She remains hemodynamically stable during these events. She was placed on BiPAP overnight. Also, she previously refused taking her Prozac, Sinequan, BuSpar, Desyrel. She was able to rest comfortably after getting Ativan IV. This morning, she did agree to take her Prozac. Serum total IgE level is still pending. 01/08: Remains extubated. SpO2 100% on 2 LPM via nasal cannula. Still gets quite anxious; however, she is verbally redirectable. She gets confused about the time. She believes that she has already moved out of the ICU to a new room and is concerned that her may not be aware. No longer audibly wheezing. Tachycardia is improving with restart of her home regimen of psychiatric medications and Toprol-XL. Review of systems relevant to events:: Respiratory: Respiratory distress, wheezes Cardiovascular: Tachycardia Psychiatric: Anxiety Reason for ICU Addmission:: endotracheal intubation - Medications: Medications reviewed and adjusted accordingly: Yes Physical Exam Vital Signs: Temp Pulse Resp BP Pulse Ox 98.3 F 120 H 12 118/92 H 99 01/09/20 07:25 01/09/20 07:00 01/09/20 07:00 01/09/20 06:27 01/09/20 07:00 Intake & Output 01/08/20 01/09/20 01/10/20 06:59 06:59 06:59 Intake Total 398 751 Output Total 028 8035 Balance -197 -974 Weight 50.9 kg 49.4 kg Weight/Height Weight 49.4 kg Height 1.52 m General appearance: PRESENT: no acute distress, well-developed, well-nourished Head exam: PRESENT: atraumatic, normocephalic Eye exam: PRESENT: conjunctiva pink, EOMI, PERRLA. ABSENT: scleral icterus Mouth exam: PRESENT: moist, tongue midline Teeth exam: PRESENT: edentulous - Full set of dentures, other Neck exam: ABSENT: carotid bruit, JVD, lymphadenopathy, thyromegaly Respiratory exam: PRESENT: crackles - Scattered bilateral crackles. ABSENT: prolonged expiratory phas, rales, rhonchi, wheezes Cardiovascular exam: PRESENT: RRR, tachycardia. ABSENT: diastolic murmur, rubs, systolic murmur Pulses: PRESENT: normal dorsalis pedis pul GI/Abdominal exam: PRESENT: normal bowel sounds, soft. ABSENT: distended, guarding, mass, organolmegaly, rebound, tenderness Extremities exam: PRESENT: full ROM. ABSENT: calf tenderness, clubbing, pedal edema Musculoskeletal exam: PRESENT: normal inspection. ABSENT: deformity Neurological exam: PRESENT: alert, awake, oriented to person, oriented to time, CN II-XII grossly intact. ABSENT: oriented to place, oriented to situation, motor sensory deficit Psychiatric exam: PRESENT: anxious, appropriate affect. ABSENT: agitated Focused psych exam: PRESENT: delusional, psychomotor agitation. ABSENT: catatonic, euphoric, paranoid, pressured speech Skin exam: PRESENT: dry, intact, warm. ABSENT: cyanosis, rash Laboratory/Radiographs Laboratory Results: 01/09/20 03:20 01/09/20 03:20 01/09/20 01/09/20 03:20 03:20 WBC 19.2 H RBC 3.74 Hgb 11.8 L Hct 35.2 L MCV 94 MCH 31.6 MCHC 33.5 RDW 14.5 H Plt Count 313 Seg Neutrophils % 90.0 H Sodium 138.7 Potassium 4.4 Chloride 106 Carbon Dioxide 23 Anion Gap 10 BUN 30 H Creatinine 0.74 Est GFR ( Amer) > 60 Glucose 122 H Calcium 9.2 Magnesium 2.0 01/05/20 22:40 Estrada Catheter Urine Culture - Final NO GROWTH 2 DAYS 01/05/20 01/05/2020 05:11 05:11 05:11 Creatine Kinase 110 Troponin I 0.019 NT-Pro-B Natriuret Pep 91 01/06/20 01/06/20 01/07/20 03:59 18:35 03:25 Creatine Kinase Troponin I NT-Pro-B Natriuret Pep Cancelled 2340 H 2010 H 01/09/20 03:20 Creatine Kinase Troponin I NT-Pro-B Natriuret Pep 4690 H Impressions: KUB X-Ray 01/05/20 13:57 IMPRESSION: NG tube is been advanced compared to the earlier film. Mild gastric distention previously noted has resolved. All labs, radiographs, diagnostic studies and EKGs were personally reviewed: Yes In addition, reports of radiographic and diagnostic studies were read: Yes Assessment and Plan - Diagnosis (1) Acute respiratory failure with hypercapnia Is this a current diagnosis for this admission?: Yes Plan: Decrease Solu-Medrol to 40 mg IV every 8 hours. Of note, her "respiratory distress" has a significant psychiatric component. ABG should be obtained in the event of respiratory distress. (2) Psychomotor agitation Is this a current diagnosis for this admission?: Yes Plan: Decrease Solu-Medrol, as above. Haldol 2.5 mg IV every 6 hours as needed. Restart Prozac 40 mg p.o. daily, Sinequan (doxepin) 25 mg p.o. nightly, BuSpar 10 mg p.o. every 12 hours, Desyrel (trazodone) 50 mg p.o. nightly as needed. (3) Acute exacerbation of emphysema Is this a current diagnosis for this admission?: Yes Plan: Decrease steroids. Continue duo nebs and albuterol as needed. (4) Peripheral eosinophilia Is this a current diagnosis for this admission?: Yes (5) CHF exacerbation Qualifiers: Heart failure type: systolic Qualified Code(s): I50.23 - Acute on chronic systolic (congestive) heart failure Is this a current diagnosis for this admission?: Yes Plan: Restart spironolactone. Furosemide 40 mg IV single dose. (6) Heart failure with reduced ejection fraction Is this a current diagnosis for this admission?: Yes Plan: 11/30/2019: 2D echo 10/20/2019: 2D echo (10/20/2019): LVEF 30-35%. Avoid volume overload. (7) COVID-19 ruled out by clinical criteria Is this a current diagnosis for this admission?: Yes Critical Time Critical Time (minutes): 45 Level of Care: TELE -: 1. The care of a critical patient is a dynamic process. This note is a small business representative synopsis but static in nature. The timeframe for treatments given in order is not necessarily the actual time these treatments may have been done. 2. This patient requires critical care secondary to ongoing requirements for therapy not offered or safe outside the critical care environment. Transfer to a lower level of care will result in altered life or limb morbidity and mortality. 3. Multidisciplinary rounds completed. 4. ABCDE bundle addressed.
[2020-01-09] MEDS: HALOPERIDOL LACTATE INJ 5 MG/1 ML VIAL IV PRN (18:08)
[2020-01-10] MEDS: ACETAMINOPHEN 325 MG TABLET PO PRN ×2 (01:41→14:12)
[2020-01-10] MEDS: AMOXICILLIN TR/POT CLAVULANATE 875-125 MG TAB PO SCH ×2 (05:42→18:24)
[2020-01-10] MEDS: HEPARIN SOD (PORCINE) 5,000 UNIT/ML 1 ML VIAL SUBCUT SCH ×3 (05:42→21:07)
[2020-01-10] MEDS: METHYLPREDNISOLONE INJ 40 MG/1 ML SDV IV SCH ×3 (05:42→21:05)
[2020-01-10] MEDS: HALOPERIDOL LACTATE INJ 5 MG/1 ML VIAL IV PRN (05:43)
[2020-01-10] MEDS: ALBUTEROL SULFATE 0.083% NEB 2.5 MG/3 ML AMPUL NEB SCH ×4 (06:53→15:15)
[2020-01-10] MEDS: ALBUTEROL SULFATE 0.083% NEB 2.5 MG/3 ML AMPUL NEB PRN (06:56)
[2020-01-10] MEDS: BUDESONIDE NEB 0.25 MG/2 ML AMPUL NEB SCH ×2 (08:19→20:31)
[2020-01-10] MEDS: METOPROLOL SUCCINATE 50 MG TAB.SR.24H PO SCH (09:35)
[2020-01-10] MEDS: FLUOXETINE HCL 20 MG CAPSULE PO SCH (09:35)
[2020-01-10] MEDS: BUSPIRONE HCL 10 MG TABLET PO SCH ×2 (09:35→21:06)
[2020-01-10] MEDS: SPIRONOLACTONE 25 MG TABLET PO SCH (09:35)
[2020-01-10] MEDS: FAMOTIDINE INJ/PF 20 MG/2 ML SDV IV SCH (09:35)
[2020-01-10] MEDS ORDERED: HYDROXYZINE PAMOATE 25 MG CAPSULE PO PRN (18:09)
--- NOTE | 2020-01-10 18:24 | PDOC PROGRESS REPORT ---
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 She was intubated 01/05/2020. Self extubated 01/07/2020. She is downgraded to the telemetry floor and transferred to the hospitalist service 01/09/2020. Patient was seen on afternoon rounds with her significant other present. She is found resting in bed, comfortably, on supplemental oxygen at 3 L/min; not home O2 dependent. She is noted to be severely anxious with constant foot tremor. She does admit to difficulty with anxiety relating to her respiratory status. She tells me that she has not been tolerating BiPAP well due to claustrophobia. She also reports a slight, thin, productive cough. Overall, she is feeling much improved. She denies fever, chills, chest pain, palpitations, orthopnea, abdominal pain, nausea vomiting diarrhea. She has no questions or concerns at this time. No concerns per nursing. Reason For Visit: ENDOTRACHEALLY INTUBATED Physical Exam Vital Signs: Temp Pulse Resp BP Pulse Ox 98.4 F 93 18 131/68 H 97 01/10/20 15:45 01/10/20 15:45 01/10/20 15:45 01/10/20 15:45 01/10/20 15:45 Intake & Output 01/09/20 01/10/20 01/11/20 06:59 06:59 06:59 Intake Total 751 268 240 Output Total 1725 Balance -974 268 240 Weight 49.4 kg 48.3 kg General appearance: PRESENT: no acute distress, cooperative, thin, well- developed Head exam: PRESENT: atraumatic, normocephalic Eye exam: PRESENT: conjunctiva pink, EOMI, PERRLA. ABSENT: scleral icterus Mouth exam: PRESENT: moist, tongue midline Teeth exam: PRESENT: poor dentation Respiratory exam: PRESENT: decreased breath sounds - Diminished throughout/tight, prolonged expiratory phas, symmetrical, unlabored, wheezes, other - Supplemental oxygen via nasal cannula. ABSENT: rales, rhonchi Cardiovascular exam: PRESENT: RRR, +S1, +S2. ABSENT: diastolic murmur, rubs, systolic murmur Vascular exam: PRESENT: normal capillary refill Extremities exam: PRESENT: full ROM. ABSENT: calf tenderness, clubbing, pedal edema Neurological exam: PRESENT: alert, awake, oriented to person, oriented to place, oriented to time, oriented to situation, CN II-XII grossly intact. ABSENT: motor sensory deficit Psychiatric exam: PRESENT: anxious, normal mood. ABSENT: homicidal ideation, suicidal ideation Skin exam: PRESENT: dry, intact, warm. ABSENT: cyanosis, rash Results Laboratory Results: 01/09/20 03:20 01/09/20 03:20 01/05/20 01/05/20 01/05/20 05:11 05:11 05:11 Creatine Kinase 110 Troponin I 0.019 NT-Pro-B Natriuret Pep 91 01/06/20 01/06/20 01/07/20 03:59 18:35 03:25 Creatine Kinase Troponin I NT-Pro-B Natriuret Pep Cancelled 2340 H 2009 H 01/09/20 03:20 Creatine Kinase Troponin I NT-Pro-B Natriuret Pep 4690 H Impressions: KUB X-Ray 01/05/20 13:57 IMPRESSION: NG tube is been advanced compared to the earlier film. Mild gastric distention previously noted has resolved. Chest X-Ray 01/09/20 05:00 IMPRESSION: Obstructive lung disease. No acute infiltrates. Assessment and Plan - Diagnosis (1) Acute exacerbation of emphysema Is this a current diagnosis for this admission?: Yes Plan: Patient is downgraded to medical floor on continuous cardiac telemetry. Continue supplemental oxygen and BiPAP as needed to maintain saturations greater than 89% Scheduled and as needed nebulizer treatments. Resume home dose Breo. Continue Pulmicort neb. Mucinex twice daily. Start singulair. Gradual weaning of steroids. Encourage pulmonary toilet with incentive spirometer, flutter valve, early am bulation. (2) Acute respiratory failure with hypercapnia Is this a current diagnosis for this admission?: Yes Plan: Secondary to #1 Of note, her "respiratory distress" has a significant psychiatric component. Remaining management as above. (3) Chronic systolic CHF (congestive heart failure) Is this a current diagnosis for this admission?: Yes Plan: Echocardiogram (10/20/2019) revealed LVEF 30 to 35%. Continue patient's home medication regiment of metoprolol, lisinopril, Plavix, aspirin, atorvastatin, and furosemide. Cardiac diet. Daily weights. (4) Psychomotor agitation Is this a current diagnosis for this admission?: Yes Plan: Decrease steroids as clinical condition allows. Haldol 2.5 mg IV every 6 hours as needed. Continue home dose Prozac 40 mg p.o. daily, Sinequan (doxepin) 25 mg p.o. nightly, BuSpar 10 mg p.o. every 12 hours, Desyrel (trazodone) 50 mg p.o. nightly as needed. Vistaril 25 mg as needed for anxiety. (5) Self extubation Is this a current diagnosis for this admission?: Yes - Time Time Spent with patient: 25-34 minutes Medications reviewed and adjusted accordingly: Yes Anticipated discharge: Home Within: within 72 hours
[2020-01-10] MEDS: LEVALBUTEROL HCL NEB 1.25 MG/3 ML AMPUL NEB SCH (20:31)
[2020-01-10] MEDS: IPRATROPIUM BROMIDE 0.02% NEB 0.5 MG/2.5 ML AMPUL NEB SCH (20:31)
[2020-01-10] MEDS: ATORVASTATIN CALCIUM 40 MG TABLET PO SCH (21:06)
[2020-01-10] MEDS: GUAIFENESIN 600 MG TABLET.SA PO SCH (21:06)
[2020-01-10] MEDS: LISINOPRIL 5 MG TABLET PO SCH (21:06)
[2020-01-10] MEDS: MONTELUKAST SODIUM 10 MG TABLET PO SCH (21:06)
[2020-01-10] MEDS: FAMOTIDINE 20 MG TABLET PO SCH (21:06)
[2020-01-10] MEDS: GABAPENTIN 100 MG CAPSULE PO SCH (21:06)
[2020-01-11] MEDS: IPRATROPIUM BROMIDE 0.02% NEB 0.5 MG/2.5 ML AMPUL NEB SCH ×4 (02:32→20:29)
[2020-01-11] MEDS: LEVALBUTEROL HCL NEB 1.25 MG/3 ML AMPUL NEB SCH ×4 (02:33→20:29)
[2020-01-11] MEDS: HEPARIN SOD (PORCINE) 5,000 UNIT/ML 1 ML VIAL SUBCUT SCH ×3 (06:22→21:42)
[2020-01-11] MEDS: AMOXICILLIN TR/POT CLAVULANATE 875-125 MG TAB PO SCH ×2 (06:22→17:50)
[2020-01-11] MEDS: GABAPENTIN 100 MG CAPSULE PO SCH ×3 (06:22→21:41)
[2020-01-11] MEDS: METHYLPREDNISOLONE INJ 40 MG/1 ML SDV IV SCH (06:23)
[2020-01-11 06:42] LABS: HEMATOCRIT 38.7 % (36.0-47.0); HEMOGLOBIN 13.1 g/dL (12.0-15.5); MEAN CORPUSCULAR HEMOGLOBIN 31.7 pg (27.0-33.4); MEAN CORPUSCULAR HGB CONC 33.9 g/dL (32.0-36.0); MEAN CORPUSCULAR VOLUME 93 fl (80-97); PLATELET COUNT 326 10^3/uL (150-450); RED BLOOD COUNT 4.15 10^6/uL (3.72-5.28); RED CELL DISTRIBUTION WIDTH 13.9 % (11.5-14.0); WHITE BLOOD COUNT 15.8 10^3/uL (4.0-10.5)
[2020-01-11] MEDS: BUDESONIDE NEB 0.25 MG/2 ML AMPUL NEB SCH ×2 (08:12→20:29)
[2020-01-11] MEDS: FAMOTIDINE 20 MG TABLET PO SCH ×2 (09:16→21:41)
[2020-01-11] MEDS: BUSPIRONE HCL 10 MG TABLET PO SCH ×2 (09:17→21:40)
[2020-01-11] MEDS: GUAIFENESIN 600 MG TABLET.SA PO SCH ×2 (09:17→21:40)
[2020-01-11] MEDS: SPIRONOLACTONE 25 MG TABLET PO SCH (09:17)
[2020-01-11] MEDS: FUROSEMIDE 20 MG TABLET PO SCH (09:17)
[2020-01-11] MEDS: LISINOPRIL 5 MG TABLET PO SCH ×2 (09:17→21:41)
[2020-01-11] MEDS: FLUOXETINE HCL 20 MG CAPSULE PO SCH (09:17)
[2020-01-11] MEDS: ASPIRIN 81 MG TABLET, CHEWABLE PO SCH (09:17)
[2020-01-11] MEDS: CLOPIDOGREL BISULFATE 75 MG TABLET PO SCH (09:17)
[2020-01-11] MEDS: METOPROLOL SUCCINATE 50 MG TAB.SR.24H PO SCH (09:17)
[2020-01-11] MEDS ORDERED: (PENDING PHARMACY ID) (Umeclidinium Brm/Vilanterol Tr [Anoro Ellipta 62.5-25 Mcg Inh] 1 EA IH SCH (10:00)
--- NOTE | 2020-01-11 14:20 | PDOC PROGRESS REPORT ---
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 She was intubated 01/05/2020. Self extubated 01/07/2020. She is downgraded to the telemetry floor and transferred to the hospitalist service 01/09/2020. Patient was seen on afternoon rounds. She is found resting in bed, comfortably, on supplemental oxygen at 2 L/min; maintaining SpO2 of 98%. She reports that she is feeling much better today; decreased dyspnea, cough. She slept well overnight. Hopeful to go home tomorrow. She denies fever, chills, chest pain, palpitations, orthopnea, abdominal pain, nausea vomiting diarrhea. She has no questions or concerns at this time. No concerns per nursing. Reason For Visit: ENDOTRACHEALLY INTUBATED Physical Exam Vital Signs: Temp Pulse Resp BP Pulse Ox 98.8 F 98 18 134/78 H 98 01/11/20 12:07 01/11/20 12:07 01/11/20 12:07 01/11/20 12:07 01/11/20 12:07 Intake & Output 01/10/20 01/11/20 01/12/20 06:59 06:59 06:59 Intake Total 268 720 720 Balance 268 720 720 Weight 48.3 kg 48.3 kg General appearance: PRESENT: no acute distress, cooperative, thin, well- developed Head exam: PRESENT: atraumatic, normocephalic Eye exam: PRESENT: conjunctiva pink, EOMI, PERRLA. ABSENT: scleral icterus Mouth exam: PRESENT: moist, tongue midline Teeth exam: PRESENT: poor dentation Respiratory exam: PRESENT: clear to auscultation lloyd, prolonged expiratory phas, symmetrical, unlabored. ABSENT: rales, rhonchi, wheezes Cardiovascular exam: PRESENT: RRR, +S1, +S2. ABSENT: diastolic murmur, rubs, systolic murmur Vascular exam: PRESENT: normal capillary refill Extremities exam: PRESENT: full ROM. ABSENT: calf tenderness, clubbing, pedal edema Musculoskeletal exam: PRESENT: ambulatory Neurological exam: PRESENT: alert, awake, oriented to person, oriented to place, oriented to time, oriented to situation, CN II-XII grossly intact. ABSENT: motor sensory deficit Psychiatric exam: PRESENT: appropriate affect, normal mood. ABSENT: homicidal ideation, suicidal ideation Skin exam: PRESENT: dry, intact, warm. ABSENT: cyanosis, rash Results Laboratory Results: 01/11/20 06:29 01/09/20 03:20 01/11/20 06:29 WBC 15.8 H RBC 4.15 Hgb 13.1 Hct 38.7 MCV 93 MCH 31.7 MCHC 33.9 RDW 13.9 Plt Count 326 01/05/20 21:26 Blood Blood Culture - Final NO GROWTH IN 5 DAYS 01/05/20 20:56 Blood Blood Culture - Final NO GROWTH IN 5 DAYS 01/05/20 01/05/20 01/05/20 05:11 05:11 05:11 Creatine Kinase 110 Troponin I 0.019 NT-Pro-B Natriuret Pep 91 01/06/20 01/06/20 01/07/20 03:59 18:35 03:25 Creatine Kinase Troponin I NT-Pro-B Natriuret Pep Cancelled 2340 H 2010 H 01/09/20 03:20 Creatine Kinase Troponin I NT-Pro-B Natriuret Pep 4690 H Impressions: KUB X-Ray 01/05/20 13:57 IMPRESSION: NG tube is been advanced compared to the earlier film. Mild gastric distention previously noted has resolved. Chest X-Ray 01/09/20 05:00 IMPRESSION: Obstructive lung disease. No acute infiltrates. Assessment and Plan - Diagnosis (1) Acute exacerbation of emphysema Is this a current diagnosis for this admission?: Yes Plan: Improved; clear lung sounds, maintaining SPO2 comfortably on room air while at rest. Patient is downgraded to medical floor on continuous cardiac telemetry. Continue supplemental oxygen as needed to maintain saturations greater than 89% Scheduled and as needed nebulizer treatments. Resume home dose Breo. Continue Pulmicort neb. Mucinex twice daily. Start singulair. Continue weaning steroids. Encourage pulmonary toilet with incentive spirometer, flutter valve, early amb ulation. (2) Acute respiratory failure with hypercapnia Is this a current diagnosis for this admission?: Yes Plan: Secondary to #1 Of note, her "respiratory distress" has a significant psychiatric component. Remaining management as above. (3) Chronic systolic CHF (congestive heart failure) Is this a current diagnosis for this admission?: Yes Plan: Echocardiogram (10/20/2019) revealed LVEF 30 to 35%. Continue patient's home medication regiment of metoprolol, lisinopril, Plavix, aspirin, atorvastatin, and furosemide. Cardiac diet. Daily weights. Outpatient follow-up with her established video news editor. (4) Psychomotor agitation Is this a current diagnosis for this admission?: Yes Plan: Improved; patient is calm and comfortable at the time of my visit. Per nursing, she has continued to have some brief episodes of anxiety but overall is improved. Decrease steroids as clinical condition allows. Haldol 2.5 mg IV every 6 hours as needed. Continue home dose Prozac 40 mg p.o. daily, Sinequan (doxepin) 25 mg p.o. nightly, BuSpar 10 mg p.o. every 12 hours, Desyrel (trazodone) 50 mg p.o. nightly as needed. Vistaril 25 mg as needed for anxiety. (5) Self extubation Is this a current diagnosis for this admission?: Yes - Time Time Spent with patient: 25-34 minutes Medications reviewed and adjusted accordingly: Yes Anticipated discharge: Home Within: within 24 hours
[2020-01-11] MEDS: MONTELUKAST SODIUM 10 MG TABLET PO SCH (21:40)
[2020-01-11] MEDS: ATORVASTATIN CALCIUM 40 MG TABLET PO SCH (21:42)
[2020-01-12] MEDS: LEVALBUTEROL HCL NEB 1.25 MG/3 ML AMPUL NEB SCH ×3 (02:31→13:25)
[2020-01-12] MEDS: IPRATROPIUM BROMIDE 0.02% NEB 0.5 MG/2.5 ML AMPUL NEB SCH ×3 (02:31→13:25)
[2020-01-12] MEDS: HEPARIN SOD (PORCINE) 5,000 UNIT/ML 1 ML VIAL SUBCUT SCH ×2 (05:35→13:46)
[2020-01-12] MEDS: AMOXICILLIN TR/POT CLAVULANATE 875-125 MG TAB PO SCH (05:35)
[2020-01-12] MEDS: GABAPENTIN 100 MG CAPSULE PO SCH ×2 (05:35→13:46)
[2020-01-12] MEDS: BUDESONIDE NEB 0.25 MG/2 ML AMPUL NEB SCH (08:32)
[2020-01-12] MEDS: GUAIFENESIN 600 MG TABLET.SA PO SCH (09:34)
[2020-01-12] MEDS: CLOPIDOGREL BISULFATE 75 MG TABLET PO SCH (09:34)
[2020-01-12] MEDS: ASPIRIN 81 MG TABLET, CHEWABLE PO SCH (09:34)
[2020-01-12] MEDS: FAMOTIDINE 20 MG TABLET PO SCH (09:34)
[2020-01-12] MEDS: SPIRONOLACTONE 25 MG TABLET PO SCH (09:34)
[2020-01-12] MEDS: FLUOXETINE HCL 20 MG CAPSULE PO SCH (09:34)
[2020-01-12] MEDS: FUROSEMIDE 20 MG TABLET PO SCH (09:35)
[2020-01-12] MEDS: METOPROLOL SUCCINATE 50 MG TAB.SR.24H PO SCH (09:35)
[2020-01-12] MEDS: LISINOPRIL 5 MG TABLET PO SCH (09:35)
[2020-01-12] MEDS: BUSPIRONE HCL 10 MG TABLET PO SCH (09:35)
[2020-01-12] MEDS ORDERED: PREDNISONE 20 MG TABLET PO SCH (10:00)
[2020-01-12] MEDS ORDERED: METOPROLOL SUCCINATE 50 MG TAB.SR.24H PO SCH (10:00)
[2020-01-12] MEDS ORDERED: METOPROLOL SUCCINATE 50 MG TAB.SR.24H PO ONE (11:00)
[2020-01-12 15:15] VITALS: BP 124/70
--- NOTE | 2020-01-12 17:33 | PDOC DISCHARGE SUMMARY ---
Impression - Admit/DC Date/PCP Admission Date/Primary Care Provider: 01/05/20 14:26 RYDER ESCAMILLA MD Discharge Date: 01/12/20 - Discharge Diagnosis (1) Acute exacerbation of emphysema Is this a current diagnosis for this admission?: Yes (2) Acute respiratory failure with hypercapnia Is this a current diagnosis for this admission?: Yes (3) Chronic systolic CHF (congestive heart failure) Is this a current diagnosis for this admission?: Yes (4) Psychomotor agitation Is this a current diagnosis for this admission?: Yes (5) Self extubation Is this a current diagnosis for this admission?: Yes - Additional Information Resuscitation Status: Full Code Discharge Diet: Cardiac Discharge Activity: Activity As Tolerated, Balance Activity w/Rest, Energy Conservation, Weigh Daily Referrals: RYDER ESCAMILLA MD [Primary Care Provider] - 01/27/20 2:00 pm () LUIS VALENCIA RN- [REGISTERED NURSE-CASE MANGER] - (Palletiser Operator is aware of consult. Please call prior to Discharge, She can be reached at [phone]) Prescriptions: Amoxicillin/Potassium Clav [Augmentin 875-125 Tablet] 1 tab PO Q12A #14 tablet Prednisone [Deltasone 20 mg Tablet] 60 mg PO DAILY #15 tablet Guaifenesin [Mucinex Sr 600 mg Tablet.sa] 600 mg PO Q12 #14 tablet.sa Montelukast Sodium [Singulair 10 mg Tablet] 10 mg PO QHS #30 tablet Metoprolol Succinate [Toprol Xl 50 mg Tab.sr] 50 mg PO DAILY #30 tab.sr.24h Home Medications: Albuterol Sulfate [Proair HFA Inhalation Aerosol 8.5 gm MDI] 2 puff IH Q4HP PRN 10/15/19 Fluoxetine HCl [Prozac] 40 mg PO DAILY 10/15/19 Gabapentin [Neurontin 100 mg Capsule] 200 mg PO Q8 10/15/19 Trazodone HCl [Desyrel 50 mg Tablet] 50 mg PO HSP PRN 10/15/19 Umeclidinium Brm/Vilanterol Tr [Anoro Ellipta 62.5-25 Mcg INH] 1 each IH DAILY 10/15/19 Buspirone HCl [Buspar 10 mg Tablet] 10 mg PO Q12 #60 tablet 10/22/19 Clopidogrel Bisulfate [Plavix 75 mg Tablet] 75 mg PO DAILY #30 tablet 10/22/19 Furosemide [Lasix 20 mg Tablet] 20 mg PO DAILY #30 tablet 10/22/19 Lisinopril [Prinivil 5 mg Tablet] 5 mg PO Q12 #30 tablet 10/22/19 Spironolactone [Aldactone 25 mg Tablet] 25 mg PO DAILY #30 tablet 10/22/19 Aspirin [Aspirin 81 mg Chewable Tablet] 81 mg PO DAILY 01/05/20 Atorvastatin Calcium [Lipitor 40 mg Tablet] 40 mg PO QHS 01/05/20 Doxepin HCl [Sinequan 25 mg Capsule] 25 mg PO QHS MDD 75 MG 01/05/20 Metoprolol Succinate [Toprol Xl 50 mg Tab.sr] 50 mg PO DAILY 01/05/20 Acetaminophen [Tylenol 325 mg Tablet] 650 mg PO Q4HP PRN tablet 01/12/20 Amoxicillin/Potassium Clav [Augmentin 875-125 Tablet] 1 tab PO Q12A #14 tablet 01/12/20 Guaifenesin [Mucinex Sr 600 mg Tablet.sa] 600 mg PO Q12 #14 tablet.sa 01/12/20 Metoprolol Succinate [Toprol Xl 50 mg Tab.sr] 50 mg PO DAILY #30 tab.sr.24h 01/12/20 Montelukast Sodium [Singulair 10 mg Tablet] 10 mg PO QHS #30 tablet 01/12/20 Prednisone [Deltasone 20 mg Tablet] 60 mg PO DAILY #15 tablet 01/12/20 History of Present Illiness History of Present Illness: Per H&P by Dr. Mishra: This 54 year old female smoker presented to the ER via EMS reportedly after experiencing respiratory distress. She was described as being in extremis with tripodding during respirations. No SpO2 documented. She was tachypneic. She was given aerosol treatment in the field without significant improvement and was transported to the ER, where she was intubated. At the time of clinical interview, the patient is awake and indicating that she wants the ET tube out. She follows commands. No ABG drawn. No CBC. CXR shows increased interstitial markings, suspicious for pulmonary edema. No pneumonic infiltrate. Hospital Course Hospital Course: (1) Acute exacerbation of emphysema Resolved; clear lung sounds, maintaining SPO2 comfortably on room air while ambulating. Patient was initially admitted to the ICU and intubated. She she self-extubated 01/07/20 and was downgraded to medical floor on continuous cardiac telemetry. She was supported with supplemental oxygen, BiPAP, nebulizer treatments, Mucinex, Singulair, and steroid therapy. As her clinical status improved, her steroids were gradually reduced. She is discharged home on prednisone. Pulmonary toilet was encouraged with incentive spirometer, flutter valve, early ambulation. She is now ambulatory on room air in and maintaining SpO2 WNL. (2) Acute respiratory failure with hypercapnia Secondary to #1 Of note, her "respiratory distress" has a significant psychiatric component. Remaining management as above. (3) Chronic systolic CHF (congestive heart failure) Echocardiogram (10/20/2019) revealed LVEF 30 to 35%. Continue patient's home medication regiment of metoprolol, lisinopril, Plavix, aspirin, atorvastatin, and furosemide. Continue cardiac diet and daily weights. Outpatient follow-up with her established customizer. (4) Psychomotor agitation Resolved. Continue home dose Prozac 40 mg p.o. daily, Sinequan (doxepin) 25 mg p.o. nightly, BuSpar 10 mg p.o. every 12 hours, Desyrel (trazodone) 50 mg p.o. nightly as needed. (5) Self extubation Physical Exam Vital Signs: Temp Pulse Resp BP Pulse Ox 99.0 F 99 16 124/70 95 01/12/20 15:29 01/12/20 15:29 01/12/20 15:29 01/12/20 15:29 01/12/20 15:29 Intake & Output 01/11/20 01/12/20 01/13/20 06:59 06:59 06:59 Intake Total 720 1200 Output Total 143 Balance 720 1057 Weight 48.3 kg 48.3 kg General appearance: PRESENT: no acute distress, cooperative, thin, well- developed, well-nourished Head exam: PRESENT: atraumatic, normocephalic Eye exam: PRESENT: conjunctiva pink, EOMI, PERRLA. ABSENT: scleral icterus Mouth exam: PRESENT: moist, tongue midline Teeth exam: PRESENT: poor dentation Respiratory exam: PRESENT: clear to auscultation lloyd, prolonged expiratory phas, symmetrical, unlabored, other - ambulatory on room air. ABSENT: rales, rhonchi, wheezes Cardiovascular exam: PRESENT: RRR, tachycardia. ABSENT: diastolic murmur, rubs, systolic murmur Vascular exam: PRESENT: normal capillary refill Rectal exam: PRESENT: deferred Extremities exam: PRESENT: full ROM. ABSENT: calf tenderness, clubbing, pedal edema Musculoskeletal exam: PRESENT: ambulatory Neurological exam: PRESENT: alert, awake, oriented to person, oriented to place, oriented to time, oriented to situation, CN II-XII grossly intact. ABSENT: motor sensory deficit Psychiatric exam: PRESENT: appropriate affect, normal mood. ABSENT: homicidal ideation, suicidal ideation Skin exam: PRESENT: dry, intact, warm. ABSENT: cyanosis, rash Results Laboratory Results: WBC 15.8 10^3/uL (4.0-10.5) H 01/11/20 06:29 RBC 4.15 10^6/uL (3.72-5.28) 01/11/20 06:29 Hgb 13.1 g/dL (12.0-15.5) 01/11/20 06:29 Hct 38.7 % (36.0-47.0) 01/11/20 06:29 MCV 93 fl (80-97) 01/11/20 06:29 MCH 31.7 pg (27.0-33.4) 01/11/20 06:29 MCHC 33.9 g/dL (32.0-36.0) 01/11/20 06:29 RDW 13.9 % (11.5-14.0) 01/11/20 06:29 Plt Count 326 10^3/uL (150-450) 01/11/20 06:29 Lymph % (Auto) 5.5 % (13-45) L 01/09/20 03:20 [place] % (Auto) 4.4 % (3-13) 01/09/20 03:20 Eos % (Auto) 0.0 % (0-6) 01/09/20 03:20 Baso % (Auto) 0.1 % (0-2) 01/09/20 03:20 Absolute Neuts (auto) 17.2 10^3/uL (1.7-8.2) H 01/09/20 03:20 Absolute Lymphs (auto) 1.1 10^3/uL (0.5-4.7) 01/09/20 03:20 Absolute Monos (auto) 0.8 10^3/uL (0.1-1.4) 01/09/20 03:20 Absolute Eos (auto) 0.0 10^3/uL (0.0-0.6) 01/09/20 03:20 Absolute Basos (auto) 0.0 10^3/uL (0.0-0.2) 01/09/20 03:20 Seg Neutrophils % 90.0 % (42-78) H 01/09/20 03:20 Carbonic Acid 1.26 mmol/L (1.05-1.35) 01/08/20 04:00 HCO3/H2CO3 Ratio 17:1 01/08/20 04:00 ABG pH 7.34 (7.35-7.45) L 01/08/20 04:00 ABG pCO2 42.0 mmHg (35-45) 01/08/20 04:00 ABG pO2 104.6 mmHg (80-100) H 01/08/20 04:00 ABG HCO3 22.3 mmol/L (20-24) 01/08/20 04:00 ABG Total CO2 23.5 mmol/L (21-25) 01/08/20 04:00 ABG O2 Saturation 97.5 % (94-98) 01/08/20 04:00 ABG Base Excess -3.3 mmol/L 01/08/20 04:00 FiO2 28% 01/08/20 04:00 Sodium 138.7 mmol/L (137-145) 01/09/20 03:20 Potassium 4.4 mmol/L (3.6-5.0) 01/09/20 03:20 Chloride 106 mmol/L (98-107) 01/09/20 03:20 Carbon Dioxide 23 mmol/L (22-30) 01/09/20 03:20 Anion Gap 10 (5-19) 01/09/20 03:20 BUN 30 mg/dL (7-20) H 01/09/20 03:20 Creatinine 0.74 mg/dL (0.52-1.25) 01/09/20 03:20 Est GFR ( Amer) > 60 (>60) 01/09/20 03:20 Est GFR (Non-Af Amer) Cancelled 01/05/20 05:11 Est GFR (MDRD) Non-Af > 60 (>60) 01/09/20 03:20 Glucose 122 mg/dL (75-110) H 01/09/20 03:20 POC Glucose 137 mg/dL (70-110) H 01/08/20 05:36 Calcium 9.2 mg/dL (8.4-10.2) 01/09/20 03:20 Phosphorus 3.6 mg/dL (2.5-4.5) 01/08/20 03:47 Magnesium 2.0 mg/dL (1.6-2.3) 01/09/20 03:20 Total Bilirubin 0.4 mg/dL (0.2-1.3) 01/05/20 05:11 Total Bilirubin Cancelled 01/05/20 05:11 Direct Bilirubin 0.0 mg/dL (0.0-0.4) 01/05/20 05:11 Direct Bilirubin Cancelled 01/05/20 05:11 Neonat Total Bilirubin Cancelled 01/05/20 05:11 Neonat Total Bilirubin Not Reportable 01/05/20 05:11 Neonat Direct Bilirubin Cancelled 01/05/20 05:11 Neonat Direct Bilirubin Not Reportable 01/05/20 05:11 Neonat Indirect Bili Cancelled 01/05/20 05:11 Neonat Indirect Bili Not Reportable 01/05/20 05:11 AST 35 U/L (14-36) 01/05/20 05:11 AST Cancelled 01/05/20 05:11 ALT 27 U/L (<35) 01/05/20 05:11 ALT Cancelled 01/05/20 05:11 Alkaline Phosphatase 52 U/L (38-126) 01/05/20 05:11 Alkaline Phosphatase Cancelled 01/05/20 05:11 Creatine Kinase 110 U/L (30-135) 01/05/20 05:11 Troponin I 0.019 ng/mL 01/05/20 05:11 NT-Pro-B Natriuret Pep 4690 pg/mL (<125) H 01/09/20 03:20 Total Protein 7.6 g/dL (6.3-8.2) 01/05/20 05:11 Total Protein Cancelled 01/05/20 05:11 Albumin 4.6 g/dL (3.5-5.0) 01/05/20 05:11 Albumin Cancelled 01/05/20 05:11 Triglycerides 173 mg/dL (<150) H 01/06/20 03:59 EGFR Cancelled 01/05/20 05:11 Procalcitonin 0.05 ng/mL (0.00-0.08) 01/05/20 05:11 Urine Color YELLOW 01/05/20 07:55 Urine Appearance CLEAR 01/05/20 07:55 Urine pH 5.0 (5.0-9.0) 01/05/20 07:55 Ur Specific [place] 1.020 01/05/20 07:55 Urine Protein >=500 mg/dL (NEGATIVE) H 01/05/20 07:55 Urine Glucose (UA) 50 mg/dL (NEGATIVE) H 01/05/20 07:55 Urine Ketones NEGATIVE mg/dL (NEGATIVE) 01/05/20 07:55 Urine Blood MODERATE (NEGATIVE) H 01/05/20 07:55 Urine Nitrite NEGATIVE (NEGATIVE) 01/05/20 07:55 Urine Bilirubin NEGATIVE (NEGATIVE) 01/05/20 07:55 Urine Urobilinogen NEGATIVE mg/dL (<2.0) 01/05/20 07:55 Ur Leukocyte Esterase NEGATIVE (NEGATIVE) 01/05/20 07:55 Urine WBC (Auto) 2 /HPF 01/05/20 07:55 Urine RBC (Auto) 6 /HPF 01/05/20 07:55 U Hyaline Cast (Auto) 54 /LPF 01/05/20 07:55 Urine Mucus (Auto) RARE /LPF 01/05/20 07:55 Urine Ascorbic Acid NEGATIVE (NEGATIVE) 01/05/20 07:55 Urine Opiates Screen NEGATIVE 01/05/20 07:55 Urine Methadone Screen NEGATIVE 01/05/20 07:55 Ur Barbiturates Screen NEGATIVE 01/05/20 07:55 Ur Phencyclidine Scrn NEGATIVE 01/05/20 07:55 Ur Amphetamines Screen NEGATIVE 01/05/20 07:55 U Benzodiazepines Scrn NEGATIVE 01/05/20 07:55 Urine Cocaine Screen NEGATIVE 01/05/20 07:55 U Marijuana (THC) Screen NEGATIVE 01/05/20 07:55 IgE 197 IU/mL (6-495) 01/05/20 20:53 01/05/20 01/05/20 01/06/20 05:11 05:11 03:59 Troponin I 0.019 NT-Pro-B Natriuret Pep 91 Cancelled 01/06/20 01/07/20 01/09/20 18:35 03:25 03:20 Troponin I NT-Pro-B Natriuret Pep 2340 H 2009 H 4690 H Impressions: Chest X-Ray 01/05/20 05:39 IMPRESSION: Clear lungs. ET tube in good position. KUB X-Ray 01/05/20 05:39 IMPRESSION: Proximal sidehole of the NG tube is above the GE junction. Consider advancement for 8 cm. Nonobstructive bowel gas pattern. KUB X-Ray 01/05/20 13:57 IMPRESSION: NG tube is been advanced compared to the earlier film. Mild gastric distention previously noted has resolved. Chest X-Ray 01/06/20 06:25 IMPRESSION: 1. No acute findings visualized in the chest. 2. Enteric tube terminates at the gastroesophageal junction. Recommend advancement. Chest X-Ray 01/07/20 05:00 IMPRESSION: STABLE APPEARANCE OF THE CHEST. SUPPORT DEVICES UNCHANGED. Chest X-Ray 01/08/20 05:00 IMPRESSION: Interval extubation and enteric tube removal. Otherwise stable radiographic appearance of the chest. Chest X-Ray 01/09/20 05:00 IMPRESSION: Obstructive lung disease. No acute infiltrates. Plan Plan of Treatment: Patient is discharged home in stable condition. She is advised to follow-up with her primary care provider within 1 week. Follow-up with Dr. Escamilla as scheduled. Follow-up with her customizer if she continues to have tachycardia after completing her steroid course (5 days). Take her medications as prescribed. Avoid known respiratory triggers. Return to emergency department as needed for concerning symptoms. Time Spent: Greater than 30 Minutes Stroke Is this a Stroke Patient?: No Acute Heart Failure - Is this a Heart Failure Patient?: No
== END 2020-01-12 15:30 | disposition home or self-care (01) | DRG 208 ==
LOC: ER 05:06 → EH 14:26 → ICU 16:40 → 4S 01-09 16:03
PROVIDERS: ADMIT Internal Medicine Critical Care Medicine; ATTEND Registered Nurse
PROC: 5A1945Z Respiratory Ventilation, 24-96 Consecutive Hours (ICD-10-PCS; principal; 2020-01-05)
PROC: 0BH17EZ Insertion of Endotracheal Airway into Trachea, Via Natural or Artificial Opening (ICD-10-PCS; 2020-01-05)
PROC: 5A09357 Assistance with Respiratory Ventilation, Less than 24 Consecutive Hours, Continuous Positive Airway Pressure (ICD-10-PCS; 2020-01-07)
DX: J96.02 Acute respiratory failure with hypercapnia (principal); I50.23 Acute on chronic systolic (congestive) heart failure; J44.1 Chronic obstructive pulmonary disease with (acute) exacerbation; D72.1 Eosinophilia; I11.0 Hypertensive heart disease with heart failure; F41.9 Anxiety disorder, unspecified; J43.9 Emphysema, unspecified; F32.9 Major depressive disorder, single episode, unspecified; F17.210 Nicotine dependence, cigarettes, uncomplicated; R45.1 Restlessness and agitation; R00.0 Tachycardia, unspecified; Z79.82 Long term (current) use of aspirin; Z79.899 Other long term (current) drug therapy; Z79.52 Long term (current) use of systemic steroids; Z79.51 Long term (current) use of inhaled steroids; I25.2 Old myocardial infarction
CPT/HCPCS: 36415; 71045; 74018; 80048; 80053; 80307; 81001; 82550; 82785; 82803; 82962; 83735; 83880; 84100; 84145; 84478; 84484; 85025; 85027; 87040; 87070; 87086; 87205; 93005; 93010; 94002; 94003; 94640; 94660; 94667; 94668; 94799; 96374; 96375; 99285; 99291; J0330; J1630; J1644; J1815; J1940; J2060; J2250; J2270; J2704; J2920; J2930; J3010; J3360; J3490; J7030; J7512; J7614; J7620; J7626; S0028

== ENCOUNTER 2020-02-15 10:48 | Emergency (ER) | payer OTHER ==
--- NOTE | 2020-02-15 11:18 | ER Document Report ---
ED General - General Chief Complaint: Breathing Difficulty Stated Complaint: DIFFICULTY BREATHING Time Seen by Provider: 02/15/20 11:00 Primary Care Provider: OMARI ESCAMILLA MD [ACTIVE STAFF] - Follow up as needed TRAVEL OUTSIDE OF THE [place] IN LAST 30 DAYS: No - HPI Notes: Chief complaint: Respiratory distress History of present illness: 54-year-old female cigarette smoker followed by Dr. Omari Escamilla with history of severe COPD and congestive heart failure as well as recurrent episodes of respiratory failure previously requiring intubation on 2 different occasions now presents with sudden onset respiratory distress this morning. She denies fever, chills or sputum production. She states she is f ully compliant with her usual medications. She states she is not currently on prednisone or oxygen at home. She has been tested twice previously for COVID with negative results. EMS noted that she had very poor air movement when they first got to her. She had a low saturation. She improved on supplemental oxygen and was given multiple albuterol nebulizer treatments during transport here and also received IV Solu-Medrol. She has not been given IV magnesium today. - Related Data Allergies/Adverse Reactions: No Known Allergies Allergy (Verified 01/07/20 12:24) Past Medical History - General Information source: Patient, Emergency Med Personnel, [facility] Records - Social History Smoking Status: Current Every Day Smoker Frequency of alcohol use: Rare Drug Abuse: None Lives with: Family Family History: Reviewed & Not Pertinent, COPD - Past Medical History Cardiac Medical History: Reports: Hx Congestive Heart Failure, Hx Hypertension Pulmonary Medical History: Reports: Hx Asthma, Hx COPD Psychiatric Medical History: Reports: Hx Depression Past Surgical History: Reports: Hx Section, Hx Oral Surgery - X3, Hx Tubal Ligation Review of Systems - Review of Systems Notes: Constitutional: Negative for fever. HENT: Negative for sore throat. Eyes: Negative for visual changes. Cardiovascular: Negative for chest pain. Respiratory: As per HPI. Gastrointestinal: Negative for abdominal pain, vomiting or diarrhea. Genitourinary: Negative for dysuria. Musculoskeletal: Chronic back pain. Skin: Negative for rash. Neurological: Negative for headaches, focal weakness or numbness. 10 point ROS negative except as marked above and in HPI. Physical Exam - Vital signs Vitals: Temp 98.1 F 02/15/20 10:48 - Notes Notes: GENERAL: Slender, chronically ill appearing female approximately stated age in moderate respiratory distress appearing very anxious. SKIN: Pale, cool, slightly dusky. HEAD: Normocephalic atraumatic. EYES: PERRLA. EOMI. Conjunctivae and sclerae clear. EARS: CANALS AND TMS CLEAR. NOSE: CLEAR. MOUTH: Moist mucosa. Good dentition. No stridor or edema. No drooling. NECK: Supple. No masses or thyromegaly. No adenopathy. Carotids 2+ without bruits. No JVD. BACK: Symmetrical without tenderness. CHEST: Shallow rapid respirations with mild use of accessory muscles. Patient has bilateral expiratory wheezes. HEART: Tachycardic regular rhythm. No murmur gallop or rub. ABDOMEN: Soft nontender without masses, organomegaly or rebound. Bowel sounds normally active. No bruits. GENITALIA: Deferred. EXTREMITIES: No edema. No calf tenderness. Cap refill less than 1.5 seconds. Dorsalis pedis and posterior tibial pulses 3+ and symmetrical. NEUROLOGICAL: Generalized tremor. GCS 15. Alert and oriented x3. Fluent speech. Cranial nerves II through XII intact. Sensorimotor and cerebellar norm al. Normal tone. PSYCHIATRIC: Very anxious affect. Course - Re-evaluation Re-evalutation: 02/15/20 14:25 This patient was in impending respiratory failure on arrival here with a significant COPD exacerbation. We note that she has been intubated twice in the past. She unfortunately continues to smoke about 1/4 pack cigarettes per day. EMS had given IV Solu-Medrol and placed her on supplemental oxygen which she does not use at baseline. They noted that she was minimally moving air at the time of their initial encounter. She was wheezing diffusely when she arrived here. They given albuterol nebulizer in the field and I continued that here. She was also given IV magnesium. I want to try her on BiPAP but she says she is extremely claustrophobic and was not willing to have us place the mask on her face. I got an arterial blood gas on 2 L of nasal O2 and she was not retaining CO2 and had satisfactory oxygenation. Chest x-ray showed no focal infiltrates and no evidence of pneumothorax. On follow-up examination at this time she is clear with unlabored respirations and is able to speak complete sentences without difficulty. She is maintaining a 98% saturation on room air. She wants to go home and I think this is appropriate. Patient has rescue inhalers available at home. I am going to continue her on oral steroids. I talked with both her and her about cigarette smoking and she understands that she must stop. We discussed use of nicotine patch and she says this is never been helpful to her and declined this. She understands she will need to follow-up with her primary care physician within next 24 hours and return here immediately for any new or worsening symptoms. Findings, clinical impression and plan of treatment have been discussed with patient/family. Understanding of current findings and recommendations has been acknowledged by them and there is agreement regarding disposition and follow-up. - Vital Signs Vital signs: Temp Pulse Resp BP Pulse Ox 98.1 F 33 H 143/86 H 97 02/15/20 10:48 02/15/20 13:01 02/15/20 13:01 02/15/20 13:01 - Laboratory Result Diagrams: 02/15/20 11:04 02/15/20 11:04 Laboratory results interpreted by me: 02/15/20 02/15/20 02/15/20 11:04 11:04 11:28 WBC 20.9 H RDW 14.2 H Abs Neuts (Manual) 15.3 H ABG pO2 78.9 L Glucose 119 H Discharge - Discharge Clinical Impression: Decompensated COPD with exacerbation (chronic obstructive pulmonary disease) Clinical Impression: (Ruled Out): Acute respiratory failure with hypercapnia, Cigarette smoker Condition: Stable Disposition: HOME, SELF-CARE Additional Instructions: Stop smoking. Continue all your previous home medications. New prescription for prednisone has been provided. Return here as needed for new or worsening symptoms: Worsening of your breathing Pain that is worsening or unimproved Uncontrolled vomiting High fever or shaking chills Overall worsening Follow-up with your primary care physician in the next 24 hours. Prescriptions: Prednisone [Deltasone 20 mg Tablet] 2 tab PO DAILY 5 Days tablet Forms: Smoking Cessation Education Referrals: OMARI ESCAMILLA MD [ACTIVE STAFF] - Follow up as needed
[2020-02-15] MEDS: MAGNESIUM SULFATE/D5W 1 GM/100 ML RTUPB IV SCH ×2 (11:24→11:47)
[2020-02-15 11:33] LABS: HEMATOCRIT 44.4 % (36.0-47.0); HEMOGLOBIN 14.5 g/dL (12.0-15.5); MEAN CORPUSCULAR HEMOGLOBIN 30.9 pg (27.0-33.4); MEAN CORPUSCULAR HGB CONC 32.7 g/dL (32.0-36.0); MEAN CORPUSCULAR VOLUME 95 fl (80-97); PLATELET COUNT 348 10^3/uL (150-450); RED CELL DISTRIBUTION WIDTH 14.2 % (11.5-14.0); WHITE BLOOD COUNT 20.9 10^3/uL (4.0-10.5)
--- NOTE | 2020-02-15 11:42 | RADIOLOGY REPORT (SQ) ---
EXAM DESCRIPTION: CHEST SINGLE VIEW IMAGES COMPLETED DATE/TIME: 02/15/2020 11:33 am REASON FOR STUDY: SOB COMPARISON: None. EXAM PARAMETERS: NUMBER OF VIEWS: One view. TECHNIQUE: Single frontal radiographic view of the chest acquired. RADIATION DOSE: NA LIMITATIONS: None. FINDINGS: LUNGS AND PLEURA: No opacities, masses or pneumothorax. No pleural effusion. MEDIASTINUM AND HILAR STRUCTURES: No masses. Contour normal. HEART AND VASCULAR STRUCTURES: Heart normal in size. Normal vasculature. BONES: No acute findings. HARDWARE: None in the chest. OTHER: No other significant finding. IMPRESSION: NO ACUTE RADIOGRAPHIC FINDING IN THE CHEST. TECHNICAL DOCUMENTATION: JOB ID: [id number] 2010 [employer]- All Rights Reserved Reading location - IP/workstation name: [email or web address]
[2020-02-15 11:47] LABS: ALBUMIN 4.6 g/dL (3.5-5.0); ALKALINE PHOSPHATASE 56 U/L (38-126); ANION GAP 9 (5-19); ASPARTATE AMINO TRANSFERASE 36 U/L (14-36); BILIRUBIN,TOTAL 0.6 mg/dL (0.2-1.3); BLOOD UREA NITROGEN 17 mg/dL (7-20); CALCIUM 9.7 mg/dL (8.4-10.2); CARBON DIOXIDE 26 mmol/L (22-30); CHLORIDE 106 mmol/L (98-107); GLUCOSE 119 mg/dL (75-110); TOTAL PROTEIN 7.7 g/dL (6.3-8.2)
[2020-02-15 12:05] LABS: ARTERIAL BLOOD BASE EXCESS -4.5 mmol/L; ARTERIAL BLOOD FIO2 2L; ARTERIAL BLOOD H2CO3 1.11 mmol/L (1.05-1.35); ARTERIAL BLOOD HCO3 20.3 mmol/L (20-24); ARTERIAL BLOOD O2 SATURATION 95.3 % (94-98); ARTERIAL BLOOD PH 7.36 (7.35-7.45); ARTERIAL BLOOD PO2 78.9 mmHg (80-100); ARTERIAL BLOOD TOTAL CO2 21.5 mmol/L (21-25)
[2020-02-15 12:12] LABS: ABSOLUTE LYMPHOCYTES# (MANUAL) 3.8 10^3/uL (0.5-4.7); ABSOLUTE MONOCYTES # (MANUAL) 1.3 10^3/uL (0.1-1.4); BASOPHILS % (MANUAL) 1 % (0-2); EOSINOPHILS % (MANUAL) 2 % (0-6); LYMPHOCYTES % (MANUAL) 18 % (13-45); MONOCYTES % (MANUAL) 6 % (3-13); SEGMENTED NEUTROPHILS % (MAN) 73 % (42-78); TOTAL CELLS COUNTED 100
[2020-02-15 12:13] LABS: ANISOCYTOSIS SLIGHT; PLATELET COMMENT ADEQUATE; TEAR DROP CELLS SLIGHT
[2020-02-15 14:34] VITALS: BP 123/76
[2020-02-15 15:09] LABS: APPEARANCE,URINE SLIGHTLY-CLOUDY; BILIRUBIN,URINE NEGATIVE (NEGATIVE); COLOR,URINE YELLOW; GLUCOSE, URINE NEGATIVE (NEGATIVE); KETONES,URINE NEGATIVE (NEGATIVE); LEUKOCYTE ESTERASE,URINE SMALL (NEGATIVE); NITRITE,URINE POSITIVE (NEGATIVE); PROTEIN,URINE 100 mg/dL (NEGATIVE); URINE SPECIFIC GRAVITY 1.021; UROBILINOGEN,URINE NEGATIVE mg/dL (<2.0)
--- NOTE | 2020-02-15 15:13 | EKG REPORT ---
SEVERITY:- ABNORMAL ECG - SUPRAVENTRICULAR TACHYCARDIA BORDERLINE T ABNORMALITIES, ANT-LAT LEADS : Confirmed by: Doc Mcgowan MD 15-Feb-2020 15:12:21
== END 2020-02-15 14:49 | disposition home or self-care (01) ==
LOC: ER 10:48
DX: J44.1 Chronic obstructive pulmonary disease with (acute) exacerbation (principal); J96.02 Acute respiratory failure with hypercapnia; I11.0 Hypertensive heart disease with heart failure; I50.9 Heart failure, unspecified; F17.210 Nicotine dependence, cigarettes, uncomplicated
CPT/HCPCS: 93005; 99285; 96365; 36415; 87040; 82803; 83605; 85025; 80053; 81001; 71045; 93010; J3475

== ENCOUNTER 2020-03-15 23:37 | Emergency (ER) | payer OTHER ==
[2020-03-15] MEDS ORDERED: IPRATROPIUM/ALBUTEROL 0.5-2.5 MG/3 ML AMPUL NEB ONE (23:57)
[2020-03-15] MEDS ORDERED: METHYLPREDNISOLONE INJ 125 MG/2 ML SDV IV ONE (23:57)
--- NOTE | 2020-03-16 00:14 | ER Document Report ---
ED General - General Chief Complaint: Shortness Of Breath Stated Complaint: COPD EXACERBATION Time Seen by Provider: 03/15/20 23:57 Notes: 54-year-old female with a history of asthma COPD and CHF, and a recent history of intubation/self extubation presents with about an hour and a half of shortness of breath. She does still smoke has COPD takes Advair and albuterol. Had one rescue inhaler puff then called 911. Given methylprednisolone and a neb on the way here. No chest pain no worse cough than usual phlegm production fever or covert exposures. 2- cover test in the last month. Fever or leg swelling. TRAVEL OUTSIDE OF THE [place] IN LAST 30 DAYS: No - Related Data Allergies/Adverse Reactions: No Known Allergies Allergy (Verified 01/07/20 12:24) Past Medical History - General Information source: Patient - Social History Smoking Status: Current Every Day Smoker Smoking Education Provided: Yes - The patient ED visit today was directly related to their abuse of tobacco. Frequency of alcohol use: Rare Drug Abuse: None Family History: Reviewed & Not Pertinent, COPD - Past Medical History Cardiac Medical History: Reports: Hx Congestive Heart Failure, Hx Hypertension Pulmonary Medical History: Reports: Hx Asthma, Hx COPD Psychiatric Medical History: Reports: Hx Depression Past Surgical History: Reports: Hx Section, Hx Oral Surgery - X3, Hx Tubal Ligation Review of Systems - Review of Systems Notes: REVIEW OF SYSTEMS GEN: Denies fever, chills, weight loss ENT: Denies sore throat, nasal discharge, ear pain EYES: Denies blurry vision, eye pain, discharge CV: Denies chest pain, palpitations, edema RESP: Shortness of breath wheezing GI: Denies abdominal pain, nausea, vomiting, diarrhea MSK: Denies joint pain/swelling, edema, SKIN: Denies rash, skin lesions LYMPH: Denies swollen glands/lymph nodes NEURO: Denies headache, focal weakness or numbness, dizziness PSYCH: Denies depression, suicidal or homicidal ideation PHYSICAL EXAMINATION General: Mild distress, pale Head: Atraumatic, normocephalic ENT: Mouth normal, oropharynx moist, no exudates or tonsillar enlargement Eyes: Conjunctiva normal, pupils equal, lids normal Neck: No JVD, supple, no guarding CVS: Normal rate, regular rhythm, no murmurs Resp: Tachypnea prolonged respiratory phase and bilateral wheezing with good air movement GI: Nondistended, soft, no tenderness to palpation, no rebound or guarding Ext: No deformities, no edema, normal range of motion in upper and lower ext Back: No CVA or midline TTP Skin: No rash, warm Lymphatic: No lymphadeopathy noted Neuro: Awake, alert. Face symmetric. GCS 15. Physical Exam - Vital signs Vitals: Temp 97.5 F 03/15/20 23:37 Course - Re-evaluation Re-evalutation: 03/16/20 00:14 Acute bronchospasm likely secondary to baseline COPD and ongoing smoking We will rule out concomitant heart failure, and infiltrate No increased sputum to suggest acute bronchitis or need for antibiotics in the absence of an infiltrate fever or white count We will check BNP EKG and labs Given third neb, will wait for steroids to work. 03/16/20 00:40 Much better after single round of nebs. Clear lungs saturation 99 on room air. Has a concentrator at home which she uses occasionally. Has cut down from 3 packs a day to 3 to 5 cigarettes/day and is doing great with cessation. We discussed this in depth. 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 No infiltrate low risk COVID safe for discharge I have discussed with the patient there likely diagnosis, aftercare plan, follow-up plans and my usual and customary return precautions. They verbalized understanding of this. - Vital Signs Vital signs: Temp Pulse Resp BP Pulse Ox 97.5 F 03/15/20 23:37 - Laboratory Result Diagrams: 03/15/20 23:46 03/15/20 23:46 Laboratory results interpreted by me: 03/15/20 03/15/20 23:46 23:46 WBC 11.0 H RDW 14.1 H BUN 21 H Est GFR (MDRD) Non-Af 57 L Discharge - Discharge Clinical Impression: COPD exacerbation Condition: Good Disposition: HOME, SELF-CARE Instructions: Chronic Obstructive Lung Disease ([facility]), Corticosteroid Inhaler ([facility]) Additional Instructions: You are doing great with your smoking. Please continue to cut down as you have done such a great job thus far. 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 Prescriptions: Prednisone [Deltasone 20 mg Tablet] 2 tab PO DAILY 5 Days tablet
[2020-03-16 00:21] LABS: ABSOLUTE BASOPHILS # (AUTO) 0.1 10^3/uL (0.0-0.2); ABSOLUTE EOSINOPHILS # (AUTO) 0.6 10^3/uL (0.0-0.6); ABSOLUTE MONOCYTES (AUTO) 1.2 10^3/uL (0.1-1.4); ABSOLUTE NEUT (AUTO) 5.1 10^3/uL (1.7-8.2); BASOPHILS % (AUTO) 0.9 % (0-2); EOSINOPHILS % (AUTO) 5.7 % (0-6); HEMOGLOBIN 14.3 g/dL (12.0-15.5); LYMPHOCYTES % (AUTO) 36.8 % (13-45); MEAN CORPUSCULAR HEMOGLOBIN 32.6 pg (27.0-33.4); MEAN CORPUSCULAR HGB CONC 34.9 g/dL (32.0-36.0); MEAN CORPUSCULAR VOLUME 93 fl (80-97); MONOCYTES % (AUTO) 10.5 % (3-13); PLATELET COUNT 318 10^3/uL (150-450); RED BLOOD COUNT 4.39 10^6/uL (3.72-5.28); RED CELL DISTRIBUTION WIDTH 14.1 % (11.5-14.0); SEGMENTED NEUTROPHILS % (AUTO) 46.1 % (42-78); TOTAL CELLS COUNTED % (AUTO) 100 %
[2020-03-16 00:29] LABS: BLOOD UREA NITROGEN 21 mg/dL (7-20); CARBON DIOXIDE 25 mmol/L (22-30); CHLORIDE 106 mmol/L (98-107); GLUCOSE 97 mg/dL (75-110); POTASSIUM 4.6 mmol/L (3.6-5.0)
[2020-03-16 00:30] LABS: ANION GAP 7 (5-19)
--- NOTE | 2020-03-16 00:45 | RADIOLOGY REPORT (SQ) ---
CLINICAL INDICATION: COPD. TECHNIQUE: A single portable AP view was obtained of the chest at 0025 hours. COMPARISON: February 15, 2020. FINDINGS: The cardiomediastinal silhouette is normal. The lungs are grossly clear. No evidence of effusion or pneumothorax. Emphysematous changes. IMPRESSION: No evidence of active intrathoracic disease.
[2020-03-16 00:46] VITALS: BP 122/70
== END 2020-03-16 01:00 | disposition home or self-care (01) ==
LOC: ER 23:37
DX: J44.1 Chronic obstructive pulmonary disease with (acute) exacerbation (principal); R06.02 Shortness of breath; I11.0 Hypertensive heart disease with heart failure; I50.9 Heart failure, unspecified; F17.200 Nicotine dependence, unspecified, uncomplicated
CPT/HCPCS: 36415; 71045; 80048; 83880; 85025; 94640; 99284

== ENCOUNTER → 2020-03-25 | Outpatient (CLI) | payer OTHER ==
[2020-03-25 13:50] LABS: ARTERIAL BLOOD BASE EXCESS -1.1 mmol/L; ARTERIAL BLOOD H2CO3 1.11 mmol/L (1.05-1.35); ARTERIAL BLOOD HCO3 23.1 mmol/L (20-24); ARTERIAL BLOOD PCO2 36.8 mmHg (35-45); ARTERIAL BLOOD PH 7.42 (7.35-7.45); ARTERIAL BLOOD PO2 89.7 mmHg (80-100); ARTERIAL BLOOD TOTAL CO2 24.2 mmol/L (21-25)
[2020-03-25 13:52] LABS: ARTERIAL BLOOD FIO2 ROOM AIR
[2020-03-25 13:55] LABS: ABSOLUTE BASOPHILS # (AUTO) 0.1 10^3/uL (0.0-0.2); ABSOLUTE EOSINOPHILS # (AUTO) 0.7 10^3/uL (0.0-0.6); ABSOLUTE LYMPHOCYTES (AUTO) 3.4 10^3/uL (0.5-4.7); ABSOLUTE NEUT (AUTO) 2.9 10^3/uL (1.7-8.2); BASOPHILS % (AUTO) 1.2 % (0-2); EOSINOPHILS % (AUTO) 8.9 % (0-6); HEMATOCRIT 39.8 % (36.0-47.0); HEMOGLOBIN 13.5 g/dL (12.0-15.5); LYMPHOCYTES % (AUTO) 41.8 % (13-45); MEAN CORPUSCULAR HEMOGLOBIN 31.8 pg (27.0-33.4); MEAN CORPUSCULAR VOLUME 94 fl (80-97); MONOCYTES % (AUTO) 12.1 % (3-13); PLATELET COUNT 337 10^3/uL (150-450); RED BLOOD COUNT 4.25 10^6/uL (3.72-5.28); RED CELL DISTRIBUTION WIDTH 14.5 % (11.5-14.0); TOTAL CELLS COUNTED % (AUTO) 100 %; WHITE BLOOD COUNT 8.2 10^3/uL (4.0-10.5)
== END ==
LOC: OD 12:51
PROVIDERS: ATTEND Internal Medicine Pulmonary Disease
DX: J43.2 Centrilobular emphysema (principal)
CPT/HCPCS: 82785; 82803; 85025; 86003